=== PATIENT | male | born 1995 | race Caucasian/White ===

== ENCOUNTER 2020-03-15 10:01 | Outpatient (REF) | payer BC, SELFPAY | END 2020-03-15 10:02 | disposition home or self-care (01) | LOC: HO.LAB 10:01 | PROVIDERS: Visit Provider Internal Medicine | DX: Z20.828 Contact with and (suspected) exposure to other viral communicable diseases (principal) | CPT/HCPCS: C9803; U0003 ==

== ENCOUNTER 2020-10-15 16:25 | Emergency (ER) | payer MEDICAID, SELFPAY ==
[2020-10-15 18:03] VITALS: BP 147/100; PULSE 97; RESP 16; TEMP 37.1; O2SAT 99; BMI 29.0
--- NOTE | 2020-10-15 18:04 | ED_ITS ---
HPI - General Adult General Chief complaint: Recheck/Abnormal Lab/Rx Stated complaint: high bp, rash Time Seen by Provider: 10/15/20 18:04 Source: patient Mode of arrival: ambulatory Limitations: no limitations History of Present Illness HPI narrative: 25 yo male with no medical history presents to the ER with high blood pressure reading x3 at home. BP 150/90s per his report. He also reports ongoing anxiety, migraine headaches, and chest pains for the last few months. He does not have health insurance or a PCP. He was monitoring his pressure on a cuff at home and states it has been high in the past but he has never been on medication. Hypertension runs in his family. 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 MD complaint: HTN Onset (ago): day(s) Location: head and chest Radiation: non-radiation Severity: mild Quality: aching Pain Consistency: intermittent Relieving factors: rest Associated symptoms: denies other symptoms Treatments prior to arrival: none Related Data Previous Rx's Medication Instructions Recorded hydrochlorothiazide 12.5 mg PO DAILY #14 tab 10/15/20 hydrocortisone 1 appl TOPICAL TID PRN #30 g 10/15/20 Allergies Allergy/AdvReac Type Severity Reaction Status Date / Time No Known Allergies Allergy Verified 10/15/20 18:08 Review of Systems Review of Systems: Constitutional: No Fever, No Chills ENT/Mouth: No sore throat, No Rhinorrhea, No Swallowing Difficulty Eyes: No Eye Pain, No Swelling, No Redness, No vision changes Cardiovascular: + Chest Pain, No SOB Respiratory: No Cough, No Sputum, No Wheezing, No dyspnea Gastrointestinal: No Nausea, No Vomiting, No Diarrhea, No abdominal Pain Musculoskeletal: No joint pain, No Myalgias Skin: No Skin Lesions, + rash Neuro: No Weakness, No Numbness, No Dizziness, + Headache Psych: + Anxiety/Panic, No Depression Heme/Lymph: No Bruising, No Lymphadenopathy PMFSH Past Medical History Attestation statement: The following information was validated with the patient. Social History Social History Advance Directives: No Advance Directives Information Provided: No Physical Exam Vital Signs: Vital Signs: Last Vital Signs Temp 98.8 F 10/15/20 18:03 Pulse 97 07/21/21 18:03 Resp 16 10/15/20 18:03 BP 147/100 H 10/15/20 18:03 Pulse Ox 99 10/15/20 18:03 Body Mass Index 29.0 Appearance: Alert. Oriented X3. No acute distress. Eyes: Pupils equal, round and reactive to light. ENT: Pharynx normal. Neck: Normal inspection. Neck supple. CVS: Normal heart rate and rhythm. Pulses normal. Respiratory: No respiratory distress. Breath sounds normal. Abdomen: Soft and nontender. +BS x4 Skin: Skin warm and dry. Normal skin color. Normal skin turgor. small round erythematous patches <1cm on right dorsal forearm and truck, pruritic, blanching, dry, not warm or tender Extremities: No lower extremity edema. Neuro: Oriented X 3. No motor deficit. No sensory deficit. Course Course Course Narrative: 25 y/o male presenting with hypertension, BP 150/90's at home x2 days. Associated with chest pains, anxiety, and headaches. BP here 147/100 with HR 97. He appears well. No current chest pain, headache or vision changes. No evidence of hypertensive urgency or emergency. He has increased stressors at home and work. We discussed important of getting a primary care doctor for management and monitoring of his BP. He agrees to go to hospital lobby now to sign up for [facility]. Given list of PCPs. DASH diet discussed. Will plan to start low dose HCTZ for 2 weeks, monitor BP at home and f/u as an outpatient with his PCP. Steroid cream prescribed for itchy rash, likely due to heat. Stable for discharge home. Case d/w Dr. Link. Discharge Plan Discharge Clinical Impression: Heat rash Hypertension Qualifiers: Hypertension type: unspecified Qualified Code(s): I10 - Essential (primary) hypertension Patient Disposition: Home, Self-Care Instructions: DASH Eating Plan (ED), Hypertension (ED), Dermatitis (ED) Additional Instructions: Your blood pressure was elevated today. Recommend start taking the prescribed medication every morning. Avoid salt and fats in your diet. You need to follow up with a doctor for management of your blood pressure. Recommend recording it once per day and keep records for for your doctor. See list provided. Use the topical steroid cream as needed for itching. Take Benadryl 25-50 mg every 6 hours as needed for itching. Prescriptions: New hydrochlorothiazide 12.5 mg tablet 12.5 mg PO DAILY Qty: 14 RF: 0 hydrocortisone 2.5 % cream 1 appl topical TID PRN (Reason: itching) Qty: 30 RF: 0 Interventions: ED Discharge Assessment Last Done: 10/15/20 19:44 Discharge Date/Time: 10/15/20 19:45
== END 2020-10-15 19:45 | disposition home or self-care (01) ==
PROVIDERS: Emergency Provider Emergency Medicine
DX: I10 Essential (primary) hypertension (principal); L74.0 Miliaria rubra
CPT/HCPCS: 99283

== ENCOUNTER 2020-10-16 18:57 | Emergency (ER) | payer MEDICAID, SELFPAY ==
--- NOTE | 2020-10-16 | ECG_ITS ---
Test Reason : DIZZINESS Blood Pressure : / mmHG Vent. Rate : 081 BPM Atrial Rate : 081 BPM P-R Int : 142 ms QRS Dur : 082 ms QT Int : 356 ms P-R-T Axes : 047 070 021 degrees QTc Int : 413 ms Normal sinus rhythm with sinus arrhythmia Normal ECG When compared to the previous EKG of No significant changes seen Referred By: Generic ED Physician Electronically Signed By:JANINA EMERSON MD
[2020-10-16 19:06] VITALS: BP 167/89; PULSE 98; RESP 18; TEMP 37.1; O2SAT 99; BMI 29.0
[2020-10-16 20:14] LABS: MANUAL DIFF FLAG NO
[2020-10-16 20:16] LABS: Basophils Absolute Auto 0.1 X10*3/uL (0.0-0.2); Eosinophils Absolute Auto 0.2 X10*3/uL (0.0-0.4); Eosinophils Percent Auto 2.3 % (0-4); Hematocrit 47.2 % (42-52); Hemoglobin 16.9 g/dl (14.0-18.0); Imm Gran Abs Auto 0.02 X10*3/uL (0.00-0.03); Imm Gran Pct Auto 0.3 % (0.0-0.4); Lymphocytes Absolute Auto 1.9 X10*3/uL (1.2-4.9); Lymphocytes Percent Auto 24.6 % (20-40); Mean Corpuscular HGB Conc 35.8 g/dl (31.0-36.0); Mean Corpuscular Hemoglobin 30.5 pg (27.0-33.0); Mean Platelet Volume 9.4 fL (9.4-12.4); Monocytes Absolute Auto 0.5 X10*3/uL (0.1-1.2); Monocytes Percent Auto 6.7 % (2-11); Neutrophils Percent Auto 65.1 % (45-73); Platelet Count 340 X10*3/uL (160-400); Red Blood Count 5.55 X10*6/uL (4.60-5.80); Red Cell Distribution Width 11.7 % (11.0-16.0); White Blood Count 7.8 X10*3/uL (4.8-10.8)
[2020-10-16 20:41] LABS: Anion Gap 17 (12-20); Blood Urea Nitrogen 12 mg/dL (9-16); Calcium 10.8 mg/dL (8.4-10.2); Carbon Dioxide 24 mmol/L (22-29); Chloride 101 mmol/L (96-108); Creatinine Clr Calc Pharmacy 107.7; Estimated Glomerular Filt Rate > 60; Glucose Random 94 mg/dL (60-115); Potassium 3.9 mmol/L (3.3-5.1); Sodium 138 mmol/L (135-145)
--- NOTE | 2020-10-16 23:35 | ED.DIZZY ---
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) Onset (ago): day(s) (has had it for the past few days but noted he felt his BP being high today, took HCTZ just started it yesterday kept rechecking BP and it kept going up) Severity: moderate Description: lightheadedness Context: anxiety and recent illness History of similar symptoms: Yes Exacerbating factors: nothing Relieving factors: nothing Associated symptoms: other (anxiety, shakes, chest pain) Related Data Previous Rx's Medication Instructions Recorded hydrochlorothiazide 12.5 mg PO DAILY #14 tab 10/15/20 hydrocortisone 1 appl TOPICAL TID PRN #30 g 10/15/20 lorazepam [Ativan] 1 mg PO BEDTIME PRN #10 tab 10/17/20 Allergies Allergy/AdvReac Type Severity Reaction Status Date / Time No Known Allergies Allergy Verified 10/16/20 19:06 Review of Systems Review of Systems: Constitutional : No Weight loss, No Fever, No Chills, No Fatigue, No Malaise ENT/Mouth : No sore throat, No Rhinorrhea Eyes: No Eye Pain, No Swelling, No Redness Cardiovascular : pos Chest Pain, No SOB, No Dyspnea on Exertion, No Orthopnea, No Edema, No Palpitations Respiratory : No Cough, No Sputum, No Wheezing Gastrointestinal : No Nausea, No Vomiting, No Diarrhea, No Constipation, No abdominal Pain, No Hematochezia, No Melena Genitourinary : No Dysuria, No Urinary Frequency, No Hematuria, Musculoskeletal : No joint pain, No Myalgias, No Joint Swelling Skin : No Skin Lesions, No rash Neuro : No Weakness, No Numbness, pos Dizziness, No Headache Psych : pos Anxiety/Panic, No Depression Heme/Lymph: No Bruising, No Bleeding,No Lymphadenopathy Endocrine : No Polyuria, No Polydipsia All other systems reviewed and are negative [facility] Past Medical History Attestation statement: The following information was validated with the patient. Medical History Anxiety Asthma Hypertension Migraine Social History Social History (Updated 10/17/20 @ 00:10 by Lana Cabrera DO) Patient Tobacco Use Status: Never used Tobacco Use of substances other than those prescribed or required for medical reasons: No Advance Directives: No Advance Directives Information Provided: No Physical Exam Vital Signs: Vital Signs: Last Vital Signs Temp 98.8 F 10/16/20 19:06 Pulse 98 10/16/20 19:06 Resp 18 10/16/20 19:06 BP 167/89 H 10/16/20 19:06 Pulse Ox 99 10/16/20 19:06 Body Mass Index 29.0 Appearance: Alert. Oriented X3. No acute distress. Eyes: Pupils equal, round and reactive to light. ENT: Pharynx normal. Neck: Normal inspection. Neck supple. CVS: Normal heart rate and rhythm. Pulses normal. Respiratory: No respiratory distress. Breath sounds normal. Abdomen: Soft and nontender. Skin: Skin warm and dry. Normal skin color. Normal skin turgor. Extremities: No lower extremity edema. No calf ttp Neuro: Oriented X 3. No motor deficit. No sensory deficit. Course Course Course Narrative: negative trop, BP improved with ativan - stable for DC will refer to therapy MDM - Dizziness MDM Narrative Medical decision making narrative: 25 yo male with hx of HTN just dx here with feeling like his pressure is still high just started on meds x 2 days, c/o 8pm tonight feeling dizzy anxious chest tightness at this time PERC negative, atypical for ACS but will obtain trop at almost 4.5 hour rosario - PO ativan for anxiety and reassess dispo per results and findings Lab Data Result diagrams: 10/16/20 20:07 10/16/20 20:07 Labs: Lab Results 10/16/20 10/16/20 10/17/20 Range/Units 20:07 20:07 00:13 WBC 7.8 (4.8-10.8) X10*3/uL RBC 5.55 (4.60-5.80) X10*6/uL Hgb 16.9 (14.0-18.0) g/dl Hct 47.2 (42-52) % MCV 85.0 (80-98) fL MCH 30.5 (27.0-33.0) pg MCHC 35.8 (31.0-36.0) g/dl RDW 11.7 (11.0-16.0) % Plt Count 340 (160-400) X10*3/uL MPV 9.4 (9.4-12.4) fL Immature Gran % (Auto) 0.3 (0.0-0.4) % Neut % (Auto) 65.1 (45-73) % Lymph % (Auto) 24.6 (20-40) % Hitchcock % (Auto) 6.7 (2-11) % Eos % (Auto) 2.3 (0-4) % Baso % (Auto) 1.0 (0-2) % Lymph # (Auto) 1.9 (1.2-4.9) X10*3/uL Hitchcock # (Auto) 0.5 (0.1-1.2) X10*3/uL Eos # (Auto) 0.2 (0.0-0.4) X10*3/uL Baso # (Auto) 0.1 (0.0-0.2) X10*3/uL Abs Immat Gran (auto) 0.02 (0.00-0.03) X10*3/uL Absolute Neuts (auto) 5.0 (2.0-8.3) X10*3/uL Absolute Nucleated RBC 0.000 (0.0-0.012) X10*3/uL Nucleated RBC % (auto) 0.0 (0.0-0.2) /100WBC Sodium 138 (135-145) mmol/L Potassium 3.9 (3.3-5.1) mmol/L Chloride 101 (96-108) mmol/L Carbon Dioxide 24 (22-29) mmol/L Anion Gap 17 (12-20) BUN 12 (9-16) mg/dL Creatinine 1.07 (0.5-1.4) mg/dL Estim Creat Clear Calc 107.7 Estimated GFR > 60 Random Glucose 94 (60-115) mg/dL Calcium 10.8 H (8.4-10.2) mg/dL Troponin I High Sens < 3.5 (<3.5-35.0) ng/L ECG Data Attestation: I personally reviewed and interpreted this ECG as follows: ECG interpretation date: 10/16/20 ECG interpretation time: 23:36 Interpretation: Rate: 81 Rhythm: NSR [place]: normal Normal P waves. Normal SKY. Normal QRS complex. ST T wave : no VICTOR HUGO, nonspecific, artifact noted qTC: normal prior studies: no acute ischemia The study has been interpreted contemporaneously by me. EKG #2 Rate: 87 Rhythm: NSR [place]: normal Normal P waves. Normal SKY. Normal QRS complex. ST T wave : nonspecific inf leads no VICTOR HUGO, inverted T wave in V3 qTC: normal prior studies: no acute ischemia The study has been interpreted contemporaneously by me. . Discharge Plan Discharge Clinical Impression: Anxiety HTN (hypertension) Qualifiers: Hypertension type: unspecified Qualified Code(s): I10 - Essential (primary) hypertension Patient Disposition: Home, Self-Care Instructions: Chronic Hypertension (ED), Anxiety (ED) Additional Instructions: return to ED for any worsening symptoms or concerns Prescriptions: New lorazepam [Ativan] 1 mg tablet 1 mg PO BEDTIME PRN (Reason: anxiety) Qty: 10 RF: 0 No Action hydrochlorothiazide 12.5 mg tablet 12.5 mg PO DAILY Qty: 14 RF: 0 hydrocortisone 2.5 % cream 1 appl topical TID PRN (Reason: itching) Qty: 30 RF: 0 Stand Alone Forms: Work/School Release
--- NOTE | 2020-10-16 23:53 | ECG_ITS ---
Test Reason : HYPERTENSION Blood Pressure : / mmHG Vent. Rate : 087 BPM Atrial Rate : 087 BPM P-R Int : 156 ms QRS Dur : 082 ms QT Int : 356 ms P-R-T Axes : 044 070 018 degrees QTc Int : 428 ms Normal sinus rhythm with sinus arrhythmia Nonspecific ST abnormality When compared with ECG of 16-OCT-2020 20:03, No significant change was found Referred By: Lana Cabrera Electronically Signed By:JANINA EMERSON MD
[2020-10-16] MEDS: LORazepam 1 MG TABLET PO (23:57)
--- NOTE | 2020-10-16 23:59 | PC.NURSE ---
Pt medicated per MAY. imaging technician at bedside for repeat EKG.
[2020-10-17 00:48] LABS: Troponin-I High Sensitivity < 3.5 ng/L (<3.5-35.0)
[2020-10-17 01:04] VITALS: BP 142/95
[2020-10-17 01:14] VITALS: BP 142/95; PULSE 70; RESP 16; O2SAT 98
== END 2020-10-17 01:31 | disposition home or self-care (01) ==
PROVIDERS: Emergency Provider Emergency Medicine
DX: I10 Essential (primary) hypertension (principal); F41.9 Anxiety disorder, unspecified
CPT/HCPCS: 36415; 80048; 84484; 85025; 93005; 99284

== ENCOUNTER 2020-10-29 16:54 | Emergency (ER) | payer MEDICAID, SELFPAY ==
--- NOTE | ~2020-10-29 | XR_ITS ---
EXAMINATION: XR CHEST CLINICAL INFORMATION: Resolved chest pain COMPARISON: 07/22/2017 TECHNIQUE: Frontal view of the chest was obtained. FINDINGS: No significant abnormality is noted involving the heart, lungs, mediastinum, bony thorax or soft tissues. XR/XR chest 1V IMPRESSION: Unremarkable examination.
[2020-10-29 17:01] VITALS: BP 159/90; PULSE 100; O2SAT 100
--- NOTE | 2020-10-29 17:02 | ECG_ITS ---
Test Reason : HYPERTENSION Blood Pressure : / mmHG Vent. Rate : 086 BPM Atrial Rate : 086 BPM P-R Int : 176 ms QRS Dur : 086 ms QT Int : 336 ms P-R-T Axes : 060 077 037 degrees QTc Int : 402 ms Normal sinus rhythm Nonspecific T wave abnormality Abnormal ECG When compared with ECG of 16-OCT-2020 23:59, No significant change was found Referred By: Petey Gu Electronically Signed By:Fercho Torres
[2020-10-29 17:03] VITALS: BMI 27.3
--- NOTE | 2020-10-29 17:09 | ED_ITS ---
HPI - General Adult General Chief complaint: General Medical Stated complaint: htn Time Seen by Provider: 10/29/20 18:30 Source: patient Mode of arrival: ambulatory Limitations: no limitations History of Present Illness HPI narrative: Patient presents to ED for patient blood pressure elevated ( 150's systolici) tingling in feet, patients, nausea, vomitting, anxiety and sensation of doom in chest ( chest pain). Patient states 2 weeks ago he was seen in the ER for anxiety and blood pressure and was placed on blood pressure medications. Patient states strong family history of anxiety with blood pressure. States usually his parents have anxiety and the blood pressure usually elevated so they are on medication for anxiety and blood pressure. Patient states older brother also have similar symptoms nxiety and causing HTN. Presently patient denies any chest pain. Patient states presently only tingling in fingers. Patient denies any slurred speech, facial droop, paralysis of extremities, or loss of vision. Patient states presently feeling anxious. Patient states his high blood pressure and anxiety medications are finished. He ran out of them. Related Data Previous Rx's Medication Instructions Recorded hydrochlorothiazide 12.5 mg tablet 12.5 mg PO DAILY #14 tab 10/15/20 hydrocortisone 2.5 % topical cream 1 appl TOPICAL TID PRN #30 g 10/15/20 lorazepam 1 mg tablet (Ativan) 1 mg PO BEDTIME PRN #10 tab 10/17/20 hydrochlorothiazide 12.5 mg capsule 12.5 mg PO DAILY #20 cap 10/29/20 hydroxyzine HCl 25 mg tablet 25 mg PO QID PRN #28 tab 10/29/20 Allergies Allergy/AdvReac Type Severity Reaction Status Date / Time No Known Allergies Allergy Verified 10/16/20 19:06 Review of Systems Review of Systems: Yes all other systems are reviewed and are negative Constitutional: Constitutional: Reports as per HPI and Reports no additional constitutional complaints Eyes: Eyes: Reports as per HPI and Reports no additional eye complaints ENT: Reports system reviewed and no additional complaints, except as documented and Reports as per HPI Cardiovascular: Cardiovascular: Reports as per HPI and Reports no additional cardiovascular complaints Comments: Sensation of doom Respiratory: Respiratory: Reports as per HPI and Reports no additional respiratory complaints Gastrointestinal: Gastrointestinal: Reports as per HPI and Reports no additional gastrointestinal complaints Musculoskeletal: Musculoskeletal: Reports no additional musculoskeletal complaints and Reports as per HPI Comments: tintling in hands Neurologic: Reports system reviewed and no additional complaints, except as documented and Reports as per HPI Psychiatric: Psychiatric: Reports no additional psychiatric complaints and Reports as per HPI Comments: anxious [facility] Past Medical History Medical History Anxiety Asthma Hypertension Migraine Social History Social History (Updated 10/17/20 @ 00:10 by Lana Cabrera DO) Patient Tobacco Use Status: Never used Tobacco Advance Directives: No Advance Directives Information Provided: Yes Physical Exam Vital Signs: Vital Signs: Last Vital Signs Pulse 98 10/29/20 17:22 Resp 16 10/29/20 17:22 BP 150/91 H 10/29/20 17:22 Pulse Ox 99 10/29/20 17:22 Body Mass Index 27.3 Const: General: cooperative, healthy appearing, comfortable, no acute distres s, well developed, alert, awake and Physically active HENMT: Head: Yes normal to inspection, Yes No palpable skull fracture present, Yes normocephalic and Yes atraumatic Ears: hearing grossly normal bilaterally and external ears normal Eyes: General: appearance normal, both eyes and all related structures Neck: Neck: Yes normal visual inspection, Yes full ROM, Yes no lymphadenopathy, Yes no meningeal signs, Yes trachea midline, Yes supple and No tender Chest: Chest palpation & inspection: normal inspection of the chest and normal palpation of entire chest wall Resp: Effort & Inspection: normal respiratory effort and able to speak in complete sentences Cardio: Jugular venous distension: no JVD Heart sounds: S1 normal heart sound present and S2 normal heart sound present GI: Inspection: Yes normal to inspection and No abdominal wall ecchymosis Palpation (GI): Soft to palpation, not firm, nontender, no guarding and not rigid : General: No CVA tenderness and Yes no CVA tenderness Back/Spine/Pelvis: Back: no CVA tenderness, No CVA tenderness and No back tenderness Skin: General skin exam: no rashes or lesions noted and elasticity normal Neuro: Other: Negative for facial droop. Negative slurred speech. All extremities equal strength 5+. [id number] rapid head movement intact. Negative Romberg. General: gait normal, tone normal, no meningeal signs and deep tendon reflexes 2+ bilaterally Cranial nerves: Yes CN's II-XII intact bilaterally Extrem: General: Yes normal to inspection and Yes full ROM Psych: Other: anxious Appearance: grossly normal and well [facility] Course Course Course Narrative: History physical exam indicate anxiety but will do medical evaluation. Reevaluation(s) Reevaluation #1: Patient EKG negative for STEMI. Chest x-ray negative for pneumonia. Troponin and D-dimer negative. TSH is normal. Negative for any neuro deficits. Pressure 150/91. Patient is not in any distress. Patient does not need psych admission. Patient will be given refill of lisinopril and anxiety medication. Symptoms most likely due to anxiety. Not suspecting any stroke. not Suspecting IL or PE. No indication for head CT scan. Patient denies any nausea or vomiting presently. Perc score 0 Time: 20:05 Medical Decision Making MDM Narrative Medical decision making narrative: Anxiety Lab Data Result diagrams: 10/29/20 17:28 10/29/20 17:28 Labs: Lab Results 10/29/20 10/29/20 10/29/20 Range/Units 17:28 17:28 17:28 WBC 7.0 (4.8-10.8) X10*3/uL RBC 5.12 (4.60-5.80) X10*6/uL Hgb 15.4 (14.0-18.0) g/dl Hct 43.9 (42-52) % MCV 85.7 (80-98) fL MCH 30.1 (27.0-33.0) pg MCHC 35.1 (31.0-36.0) g/dl RDW 11.9 (11.0-16.0) % Plt Count 337 (160-400) X10*3/uL MPV 9.6 (9.4-12.4) fL Immature Gran % (Auto) 0.3 (0.0-0.4) % Neut % (Auto) 61.0 (45-73) % Lymph % (Auto) 22.9 (20-40) % Sunflower % (Auto) 11.9 H (2-11) % Eos % (Auto) 2.6 (0-4) % Baso % (Auto) 1.3 (0-2) % Lymph # (Auto) 1.6 (1.2-4.9) X10*3/uL Sunflower # (Auto) 0.8 (0.1-1.2) X10*3/uL Eos # (Auto) 0.2 (0.0-0.4) X10*3/uL Baso # (Auto) 0.1 (0.0-0.2) X10*3/uL Abs Immat Gran (auto) 0.02 (0.00-0.03) X10*3/uL Absolute Neuts (auto) 4.3 (2.0-8.3) X10*3/uL Absolute Nucleated RBC 0.000 (0.0-0.012) X10*3/uL Nucleated RBC % (auto) 0.0 (0.0-0.2) /100WBC PT 11.1 (9.9-13.0) SEC INR 1.0 (0.9-1.1) APTT 32.9 (24.1-38.0) SEC D-Dimer < 200 NG/ML Sodium 143 (135-145) mmol/L Potassium 3.8 (3.3-5.1) mmol/L Chloride 107 (96-108) mmol/L Carbon Dioxide 26 (22-29) mmol/L Anion Gap 14 (12-20) BUN 12 (9-16) mg/dL Creatinine 1.09 (0.5-1.4) mg/dL Estim Creat Clear Calc 101.9 Estimated GFR > 60 Random Glucose 101 (60-115) mg/dL Calcium 10.1 D (8.4-10.2) mg/dL Magnesium (1.6-2.6) mg/dL Total Bilirubin 0.4 (0.0-1.0) mg/dL AST 29 (5-37) U/L ALT 65 H (0-40) U/L Alkaline Phosphatase 65 (39-117) U/L Total Creatine Kinase (38-174) U/L Troponin I High Sens (<3.5-35.0) ng/L B-Natriuretic Peptide (<100) pg/mL Total Protein 7.6 (6.5-8.0) g/dL Albumin 4.8 (3.5-5.0) g/dL 10/29/20 10/29/20 Range/Units 17:28 17:28 WBC (4.8-10.8) X10*3/uL RBC (4.60-5.80) X10*6/uL Hgb (14.0-18.0) g/dl Hct (42-52) % MCV (80-98) fL MCH (27.0-33.0) pg MCHC (31.0-36.0) g/dl RDW (11.0-16.0) % Plt Count (160-400) X10*3/uL MPV (9.4-12.4) fL Immature Gran % (Auto) (0.0-0.4) % Neut % (Auto) (45-73) % Lymph % (Auto) (20-40) % Sunflower % (Auto) (2-11) % Eos % (Auto) (0-4) % Baso % (Auto) (0-2) % Lymph # (Auto) (1.2-4.9) X10*3/uL Sunflower # (Auto) (0.1-1.2) X10*3/uL Eos # (Auto) (0.0-0.4) X10*3/uL Baso # (Auto) (0.0-0.2) X10*3/uL Abs Immat Gran (auto) (0.00-0.03) X10*3/uL Absolute Neuts (auto) (2.0-8.3) X10*3/uL Absolute Nucleated RBC (0.0-0.012) X10*3/uL Nucleated RBC % (auto) (0.0-0.2) /100WBC PT (9.9-13.0) SEC INR (0.9-1.1) APTT (24.1-38.0) SEC D-Dimer NG/ML Sodium (135-145) mmol/L Potassium (3.3-5.1) mmol/L Chloride (96-108) mmol/L Carbon Dioxide (22-29) mmol/L Anion Gap (12-20) BUN (9-16) mg/dL Creatinine (0.5-1.4) mg/dL Estim Creat Clear Calc Estimated GFR Random Glucose (60-115) mg/dL Calcium (8.4-10.2) mg/dL Magnesium 2.1 (1.6-2.6) mg/dL Total Bilirubin (0.0-1.0) mg/dL AST (5-37) U/L ALT (0-40) U/L Alkaline Phosphatase (39-117) U/L Total Creatine Kinase 163 (38-174) U/L Troponin I High Sens < 3.5 (<3.5-35.0) ng/L B-Natriuretic Peptide < 10 (<100) pg/mL Total Protein (6.5-8.0) g/dL Albumin (3.5-5.0) g/dL ECG Data Interpretation: Normal sinus rhythm. Ventricular rate 86. Pr interval 176. QRS 86. QTC 4 2. Negative STEMI Discharge Plan Discharge Clinical Impression: Anxiety, Hypertension Patient Disposition: Home, Self-Care Instructions: Hypertension (ED), Anxiety (ED) Additional Instructions: Your EKG and troponin came back negative for heart attack. Lower came back negative for risk of blood clot. Her thyroid levels are normal. Chest x-ray negative for pneumonia. Electrolytes, kidney function, liver enzymes were normal. UA abnormal blood cell count. Return to the ED immediately for slurred speech, loss of vision, paralysis of extremities, chest pain, shortness of breath, swelling of lower extremities, calf pain, or any other concerning sy mptoms. Please follow up with PCP Prescriptions: New hydrochlorothiazide 12.5 mg capsule 12.5 mg PO DAILY Qty: 20 RF: 0 hydroxyzine HCl 25 mg tablet 25 mg PO QID PRN (Reason: anxiety) Qty: 28 RF: 0 No Action hydrochlorothiazide 12.5 mg tablet 12.5 mg PO DAILY Qty: 14 RF: 0 hydrocortisone 2.5 % cream 1 appl topical TID PRN (Reason: itching) Qty: 30 RF: 0 lorazepam [Ativan] 1 mg tablet 1 mg PO BEDTIME PRN (Reason: anxiety) Qty: 10 RF: 0 Stand Alone Forms: Work/School Release Interventions: ED Discharge Assessment Last Done: 10/29/20 20:29 Discharge Date/Time: 10/29/20 20:29 Print Language: Vietnamese
[2020-10-29 17:22] VITALS: BP 150/91; PULSE 98; RESP 16; O2SAT 99
[2020-10-29 17:35] LABS: MANUAL DIFF FLAG NO
[2020-10-29 17:38] LABS: Basophils Absolute Auto 0.1 X10*3/uL (0.0-0.2); Basophils Percent Auto 1.3 % (0-2); Eosinophils Absolute Auto 0.2 X10*3/uL (0.0-0.4); Eosinophils Percent Auto 2.6 % (0-4); Hematocrit 43.9 % (42-52); Hemoglobin 15.4 g/dl (14.0-18.0); Imm Gran Abs Auto 0.02 X10*3/uL (0.00-0.03); Imm Gran Pct Auto 0.3 % (0.0-0.4); Lymphocytes Absolute Auto 1.6 X10*3/uL (1.2-4.9); Lymphocytes Percent Auto 22.9 % (20-40); Mean Corpuscular HGB Conc 35.1 g/dl (31.0-36.0); Mean Corpuscular Hemoglobin 30.1 pg (27.0-33.0); Mean Corpuscular Volume 85.7 fL (80-98); Mean Platelet Volume 9.6 fL (9.4-12.4); Monocytes Absolute Auto 0.8 X10*3/uL (0.1-1.2); Monocytes Percent Auto 11.9 % (2-11); Neutrophils Absolute Auto 4.3 X10*3/uL (2.0-8.3); Platelet Count 337 X10*3/uL (160-400); Red Blood Count 5.12 X10*6/uL (4.60-5.80); Red Cell Distribution Width 11.9 % (11.0-16.0)
[2020-10-29 17:43] LABS: Prothrombin Time 11.1 SEC (9.9-13.0)
[2020-10-29 17:46] LABS: Partial Thromboplastin Time 32.9 SEC (24.1-38.0)
[2020-10-29 17:59] LABS: D Dimer < 200 NG/ML
[2020-10-29 18:06] LABS: Magnesium 2.1 mg/dL (1.6-2.6)
[2020-10-29 18:07] LABS: Alanine Aminotransferase 65 U/L (0-40); Albumin Level 4.8 g/dL (3.5-5.0); Alkaline Phosphatase 65 U/L (39-117); Anion Gap 14 (12-20); Aspartate Amino Transferase 29 U/L (5-37); Bilirubin Total 0.4 mg/dL (0.0-1.0); Blood Urea Nitrogen 12 mg/dL (9-16); Calcium 10.1 mg/dL (8.4-10.2); Carbon Dioxide 26 mmol/L (22-29); Chloride 107 mmol/L (96-108); Creatinine Clr Calc Pharmacy 101.9; Estimated Glomerular Filt Rate > 60; Glucose Random 101 mg/dL (60-115); Potassium 3.8 mmol/L (3.3-5.1); Sodium 143 mmol/L (135-145); Total Protein 7.6 g/dL (6.5-8.0)
[2020-10-29 18:12] LABS: B Type Natriuretic Peptide < 10 pg/mL (<100); Troponin-I High Sensitivity < 3.5 ng/L (<3.5-35.0)
== END 2020-10-29 20:29 | disposition home or self-care (01) ==
PROVIDERS: Physician Assistant; Emergency Provider Emergency Medicine Emergency Medical Services
DX: F41.9 Anxiety disorder, unspecified (principal); I10 Essential (primary) hypertension
CPT/HCPCS: 36415; 71045; 80053; 82550; 83735; 83880; 84484; 85025; 85379; 85610; 85730; 93005; 99284

== ENCOUNTER 2021-06-27 06:13 | Emergency (ER) | payer MEDICAID, SELFPAY ==
[2021-06-27 06:42] VITALS: BP 177/96; PULSE 100; RESP 18; TEMP 36.9; O2SAT 98; BMI 29.5
--- NOTE | 2021-06-27 08:25 | ED_ITS ---
HPI - General Adult General Chief complaint: General Medical Stated complaint: FLU SYMPTONS Time Seen by Provider: 06/27/21 08:23 Source: patient Mode of arrival: ambulatory Limitations: no limitations History of Present Illness MD complaint: flu like symptoms Onset (ago): day(s) (2) Location: head and mouth Severity: mild Quality: aching Pain Consistency: constant Relieving factors: none Exacerbating factors: none Associated symptoms: fever/chills, headaches and malaise Treatments prior to arrival: none Related Data Previous Rx's Medication Instructions Recorded hydrochlorothiazide 12.5 mg tablet 12.5 mg PO DAILY #14 tab 10/15/20 hydrocortisone 2.5 % topical cream 1 appl TOPICAL TID PRN #30 g 10/15/20 lorazepam 1 mg tablet (Ativan) 1 mg PO BEDTIME PRN #10 tab 10/17/20 hydrochlorothiazide 12.5 mg capsule 12.5 mg PO DAILY #20 cap 10/29/20 hydroxyzine HCl 25 mg tablet 25 mg PO QID PRN #28 tab 10/29/20 Allergies Allergy/AdvReac Type Severity Reaction Status Date / Time No Known Allergies Allergy Verified 10/16/20 19:06 Review of Systems Review of Systems: Constitutional : positive Fever, no Chills, no fatigue, positive Malaise ENT/Mouth : positive sore throat, no runny nose Eyes: No Discharge Cardiovascular : No Chest Pain, No SOB Respiratory : No Cough, No Sputum Gastrointestinal : No Nausea, No Vomiting, No Diarrhea Genitourinary : No Dysuria, No Urinary Frequency Musculoskeletal : positive Myalgia Skin : No rash Neuro : No Headache PMFSH Past Medical History Medical History Anxiety Asthma Hypertension Migraine Social History Social History Patient Tobacco Use Status: Never used Tobacco Advance Directives: No Advance Directives Information Provided: No Physical Exam ED Vital Signs: Vital Signs - 24 hr 06/27/21 06:42 Temperature 98.4 F Pulse Rate 100 Respiratory Rate 18 Blood Pressure 177/96 H Pulse Oximetry 98 BMI result Body Mass Index 29.5 Appearance: Alert. Oriented X3. No acute distress. Eyes: Pupils equal, round and reactive to light. ENT: Pharynx mild erythema no swelling no exudates Neck: Normal inspection. Neck supple. CVS: Normal heart rate and rhythm. Pulses normal. Respiratory: No respiratory distress. Breath sounds normal. Abdomen: Soft and nontender. Skin: Skin warm and dry. Normal skin color. Normal skin turgor. Extremities: No lower extremity edema. No calf ttp Neuro: Oriented X 3. No motor deficit. No sensory deficit. Course Course Course Narrative: negative swabs stable for DC Medical Decision Making [facility] Narrative Medical decision making narrative: 25 yo male with hx of asthma, vaccinated against COVID comes in with 2 days of headaches, feels feverish, chills, sore throat - not toxic, no signs of exudates, mild erythema in throat, clear lungs - BP slightly high not taking his BP medications - will obtain COVID/flu swab. Lab Data Labs: Lab Results 06/27/21 06/27/21 Range/Units 08:31 08:31 COVID-19 (MAU) Negative (Negative) COVID-19 Clin Com See Note Influenza Type A (TL) Negative (Negative) Influenza Type B (TL) Negative (Negative) Influenza A & B Note See Note Discharge Plan Discharge Clinical Impression: Acute viral syndrome Patient Disposition: Home, Self-Care Instructions: Viral Syndrome (ED) Additional Instructions: return to ED for any worsening symptoms or concerns negative COVID and flu Prescriptions: No Action hydrochlorothiazide 12.5 mg tablet 12.5 mg PO DAILY Qty: 14 0RF hydrocortisone 2.5 % cream 1 appl topical TID PRN (Reason: itching) Qty: 30 0RF hydrochlorothiazide 12.5 mg capsule 12.5 mg PO DAILY Qty: 20 0RF hydroxyzine HCl 25 mg tablet 25 mg PO QID PRN (Reason: anxiety) Qty: 28 0RF lorazepam [Ativan] 1 mg tablet 1 mg PO BEDTIME PRN (Reason: anxiety) Qty: 10 0RF Stand Alone Forms: Work/School Release
[2021-06-27 08:50] LABS: COVID-19 Test Negative (Negative); IDNOW Serial# 16C4AD1C; Influenza A Negative (Negative); Influenza B2 Negative (Negative)
== END 2021-06-27 09:05 | disposition home or self-care (01) ==
PROVIDERS: Emergency Provider Emergency Medicine
DX: B34.9 Viral infection, unspecified (principal); Z20.822 Contact with and (suspected) exposure to COVID-19; I10 Essential (primary) hypertension
CPT/HCPCS: 87502; 87635; 99283

== ENCOUNTER 2021-12-14 18:36 | Emergency (ER) | payer MEDICAID, SELFPAY ==
[2021-12-14 18:41] VITALS: BP 151/91; PULSE 110; RESP 18; TEMP 35.9; O2SAT 98; BMI 29.8
[2021-12-14 21:42] VITALS: BP 141/88; PULSE 95; RESP 18; TEMP 36.4; O2SAT 97
[2021-12-14 23:49] VITALS: BP 165/94; PULSE 89; RESP 18; TEMP 36.7; O2SAT 98
--- NOTE | 2021-12-15 01:37 | ED_ITS ---
HPI - Wound/Laceration General Chief Complaint: Wound/Laceration Stated Complaint: lac on R leg/COVID+ Time Seen by Provider: 12/15/21 02:18 Source: patient Mode of arrival: ambulatory Limitations: no limitations History of Present Illness HPI narrative: 26-year-old male, COVID positive, presents with laceration to the back of his left calf. States that he was changing his dryer vent, and cut back of his calf piece of is unknown when his last Tdap vaccine was updated. He does not report any other physical complaints at this time Onset (ago): hour(s) (Within the hour of arrival) Extremity Location: left: lower leg Body four view annotation: 1. Laceration Place: home Patient tetanus UTD: No Context: accidental Associated symptoms: pain Treatments prior to arrival: bandage Related Data Previous Rx's Medication Instructions Recorded hydrochlorothiazide 12.5 mg tablet 12.5 mg PO DAILY #14 tabs 10/15/20 hydrocortisone 2.5 % topical cream 1 appl topical TID PRN itching #30 10/15/20 grams lorazepam 1 mg tablet (Ativan) 1 mg PO BEDTIME PRN anxiety #10 10/17/20 tabs hydrochlorothiazide 12.5 mg capsule 12.5 mg PO DAILY #20 caps 10/29/20 hydroxyzine HCl 25 mg tablet 25 mg PO QID PRN anxiety #28 tabs 10/29/20 Allergies Allergy/AdvReac Type Severity Reaction Status Date / Time No Known Allergies Allergy Verified 10/16/20 19:06 Review of Systems Review of Systems: Constitutional: No Fever, No Chills ENT/Mouth: No Ear Pain, No Hoarseness, No sore throat Eyes: No Eye Pain, No Swelling, No Redness, No Foreign Body Cardiovascular: No Chest Pain, No SOB Respiratory: No Cough, No Dyspnea Gastrointestinal: No Nausea, No Vomiting, No Diarrhea, No abdominal Pain Genitourinary: No Dysuria, No Hematuria Musculoskeletal: No joint pain, No Myalgias, No Joint Swelling Skin: Positive lacerations to left calf, No rash Neuro: No Weakness, No Numbness, No Paresthesias, No Loss of Consciousness, No Dizziness, No Headache Psych: No Anxiety/Panic, No Depression Heme/Lymph: no easy bruising, no Lymphadenopathy Endocrine: No Polyuria, No Polydipsia Yes all other systems are reviewed and are negative PMFSH Past Medical History Attestation statement: The following information was validated with the patient. Source: old records reviewed Medical History Anxiety Asthma Hypertension Migraine Social History Social History Patient Tobacco Use Status: Never used Tobacco Advance Directives: No Advance Directives Information Provided: Yes Physical Exam Vital Signs: Vital Signs: Last Vital Signs Temp 98.1 F 12/14/21 23:49 Pulse 89 12/14/21 23:49 Resp 18 12/14/21 23:49 BP 165/94 H 12/14/21 23:49 Pulse Ox 98 12/14/21 23:49 O2 Del Method 12/14/21 23:49 BMI result Body Mass Index 29.8 Appearance: Alert. Oriented X3. No acute distress. Eyes: Pupils equal, round and reactive to light. ENT: Pharynx normal. Neck: Normal inspection. Neck supple. CVS: Normal heart rate and rhythm. Pulses normal. Respiratory: No respiratory distress. Breath sounds normal. Abdomen: Soft and nontender. Skin: 4 cm laceration to back of calf, Skin warm and dry. Normal skin color. Normal skin turgor. Extremities: No lower extremity edema. Gait well-balanced well coordinated. Neuro: No motor deficit. No sensory deficit. Cranial nerves 2 through Course Course Course Narrative: 26-year-old male presents with laceration to the back of his left calf. Unknown when his last vaccine was updated. Will update Tdap vaccine today. Laceration is approximately 4 cm in length, superficial, has full range of motion with strength 5/5 to all extremities. Plan of care is to suture laceration and discharged home. 02:14 prepped and draped in sterile fashion. Irrigated with copious amounts of normal saline. Betadine cleanse. 10 sutures placed. Please refer to procedure note for full details. Patient tolerated procedure well. Patient verbalized understanding of and agrees to plan of care discharge home. Verbalized understanding of signs and symptoms indicating need for emergent intervention. MDM - Wound/Laceration Differential Diagnosis Differential diagnosis: Likely laceration Medical Records Attestation: I reviewed the patient's medical records. Procedures Laceration Laceration 1: Site: lower extremity Side (If applicable): left Size (cm): 4 Description: linear Depth: simple, single layer Local Anesthetic: lidocaine 1% Amount of anesthesia used (mL): 5 Pre-repair: wound explored, irrigated extensively and deep structures intact Skin layer closed with: nylon Size (cm): 4-0 Number of sutures: 10 Technique: simple, interrupted Discharge Plan Discharge Clinical Impression: Laceration Patient Disposition: Home, Self-Care Instructions: Care For Your Stitches (ED), Laceration (ED) Additional Instructions: You were evaluated for laceration to the back of your left calf. We placed 10 sutures. Please return in 7-10 days to have sutures removed. Follow suture care instructions. If you notice any signs or symptoms indicating infection p lease return sooner. We updated your Tdap vaccine today. Thank you for choosing this emergency department for evaluation. Please follow-up with primary care physician as needed. Return to the emergency department for any new, concerning, or worsening symptoms. Prescriptions: No Action hydrochlorothiazide 12.5 mg tablet 12.5 mg PO DAILY Qty: 14 0RF hydrocortisone 2.5 % cream 1 appl topical TID PRN (Reason: itching) Qty: 30 0RF hydrochlorothiazide 12.5 mg capsule 12.5 mg PO DAILY Qty: 20 0RF hydroxyzine HCl 25 mg tablet 25 mg PO QID PRN (Reason: anxiety) Qty: 28 0RF lorazepam [Ativan] 1 mg tablet 1 mg PO BEDTIME PRN (Reason: anxiety) Qty: 10 0RF Stand Alone Forms: Work/School Release Interventions: ED Discharge Assessment Last Done: 12/15/21 02:34 Discharge Date/Time: 12/15/21 02:36
[2021-12-15] MEDS: Diphth,Pertus(ACell),Tet Adult 0.5 ML SYRINGE IM (02:13)
--- NOTE | 2021-12-15 02:18 | PC.NURSE ---
Pt. has a laceration on his right lower leg about 1 1/2 inch in length. Assisted provider with laceration repair. Pt. tolerated procedure well. Tetanus shot administered.
== END 2021-12-15 02:36 | disposition home or self-care (01) ==
PROVIDERS: Emergency Provider Emergency Medicine
DX: S81.812A Laceration without foreign body, left lower leg, initial encounter (principal); S80.812A Abrasion, left lower leg, initial encounter; Y28.9XXA Contact with unspecified sharp object, undetermined intent, initial encounter; Y93.9 Activity, unspecified; Y92.009 Unspecified place in unspecified non-institutional (private) residence as the place of occurrence of the external cause; Y99.9 Unspecified external cause status; Z79.899 Other long term (current) drug therapy
CPT/HCPCS: 12002; 90471; 90715; 99282; 99284

== ENCOUNTER 2022-02-21 06:40 | Emergency (ER) | payer MEDICAID, SELFPAY ==
[2022-02-21 06:57] VITALS: BP 150/95; PULSE 77; RESP 16; TEMP 36.4; O2SAT 99; BMI 29.0
--- NOTE | 2022-02-21 07:51 | ED.GENADULT ---
HPI - General Adult General Chief complaint: General Medical Stated complaint: allergic reaction skin rash and itchness Time Seen by Provider: 02/21/22 07:23 Source: patient Mode of arrival: ambulatory Limitations: no limitations History of Present Illness HPI narrative: 26-year-old male came in for evaluation of hives. For the last 3-4 days patient been getting hives on and off, patient declined any change in his lifestyle, no new medication, no change of his detergent, no difficulty breathing, no difficulty swallowing, no change of voice. Taking hydrochlorothiazide for hypertension for many years with no problem. Related Data Previous Rx's Medication Instructions Recorded hydrochlorothiazide 12.5 mg tablet 12.5 mg PO DAILY #14 tabs 10/15/20 hydrocortisone 2.5 % topical cream 1 appl topical TID PRN itching #30 10/15/20 grams lorazepam 1 mg tablet (Ativan) 1 mg PO BEDTIME PRN anxiety #10 10/17/20 tabs hydrochlorothiazide 12.5 mg capsule 12.5 mg PO DAILY #20 caps 10/29/20 hydroxyzine HCl 25 mg tablet 25 mg PO QID PRN anxiety #28 tabs 10/29/20 Allergies Allergy/AdvReac Type Severity Reaction Status Date / Time No Known Allergies Allergy Verified 10/16/20 19:06 Review of Systems Review of Systems: All other systems are reviewed and are negative Constitutional: Reports as per HPI and Reports no additional constitutional complaints Eyes: Reports as per HPI and Reports no additional eye complaints Reports system reviewed and no additional complaints, except as documented Cardiovascular: Reports as per HPI and Reports no additional cardiovascular complaints Respiratory: Reports as per HPI and Reports no additional respiratory complaints Gastrointestinal: Reports as per HPI and Reports no additional gastrointestinal complaints Genitourinary: Reports no additional female genitourinary complaints Musculoskeletal: Reports no additional musculoskeletal complaints Skin/Breast: Reports system reviewed and no additional complaints, except as docu Psychiatric: Reports no additional psychiatric complaints Endocrine: Reports no additional endocrine complaints Hematologic/Lymphatic: Reports no additional hematologic/lymphatic complaints Allergic/Immunologic: Reports no additional allergic/immunologic complaints Reports system reviewed and no additional complaints, except as documented and Reports Abnormal speech present PMFSH Past Medical History Medical History Anxiety Asthma Hypertension Migraine Social History Social History Patient Tobacco Use Status: Never used Tobacco Advance Directives: No Advance Directives Information Provided: Yes Physical Exam ED Vital Signs: Vital Signs - 24 hr 02/21/22 06:57 Temperature 97.6 F Pulse Rate 77 Respiratory Rate 16 Blood Pressure 150/95 H Pulse Oximetry 99 Oxygen Delivery Method Room Air BMI result Body Mass Index 29.0 Vital signs have been reviewed as appeared to be correct. Blood pressure normal. Heart rate normal. Respiration rate normal. Temperature normal. Oxygen saturation normal. Appearance: Alert. Oriented X3. No acute distress. Head: Normal external exam. Normocephalic. Atraumatic. No Chamorro signs noted. No raccoon eyes noted Eyes: PERRLA. EOMI. Conjunctiva and sclera normal. Eyelids normal. ENT: TM's Normal. Pharynx normal. Uvula midline. Moist mucous membranes. No trismus noted. No drooling noted. No muffled voice noted. Neck: Normal inspection. Neck supple. FROM. No adenopathy. Thyroid Normal. No meningeal signs. No neck mass noted. CVS: Normal heart rate and rhythm. Heart sound normal. No murmurs noted. Pulses normal throughout. Respiratory: No respiratory distress. Painless inspiration. Breath sounds normal. No wheezes/rales/rhonchi noted. Chest nontender. No accessory muscle usage noted or decreased air movement noted. Abdomen: Soft and nontender. Bowel sounds normal in all 4 quadrants. No distention noted. No organomegaly noted. No visible injury noted. Back: No CVA tenderness. Full range of motion noted. Skin: Skin warm and dry. Normal skin color. Normal skin turgor. No rashes/lesions/lacerations noted. Extremities: No lower extremity edema. Extremities exhibit normal range of motion. Extremities nontender. Neuro: Oriented X 3. Cranial nerve exam: II-XII are grossly intact No motor deficit. No sensory deficit. Reflexes normal. Course Course Course Narrative: 26-year-old male with intermittent hives no upper respiratory symptoms, no known underlying cause. Patient was instructed to trim his fingernails l and use Benadryl as needed. Discharge Plan Discharge Clinical Impression: Hives Patient Disposition: Home, Self-Care Instructions: Urticaria (ED) Prescriptions: No Action hydrochlorothiazide 12.5 mg tablet 12.5 mg PO DAILY Qty: 14 0RF hydrocortisone 2.5 % cream 1 appl topical TID PRN (Reason: itching) Qty: 30 0RF hydrochlorothiazide 12.5 mg capsule 12.5 mg PO DAILY Qty: 20 0RF hydroxyzine HCl 25 mg tablet 25 mg PO QID PRN (Reason: anxiety) Qty: 28 0RF lorazepam [Ativan] 1 mg tablet 1 mg PO BEDTIME PRN (Reason: anxiety) Qty: 10 0RF Referrals: Physician,Unknown J [Primary Care Provider] - Stand Alone Forms: Work/School Release
--- NOTE | 2022-02-21 08:12 | PC.NURSE ---
patient a/ox4 . went over discharge paperwork as ordered by provider . patient to followup with primary care . patient has no questions at this time .
== END 2022-02-21 08:13 | disposition home or self-care (01) ==
PROVIDERS: Emergency Provider Emergency Medicine
DX: L50.5 Cholinergic urticaria (principal); Z79.899 Other long term (current) drug therapy
CPT/HCPCS: 99284

== ENCOUNTER 2023-05-08 13:33 | Emergency (ER) | payer MEDICAID, SELFPAY ==
--- NOTE | 2023-05-08 | ECG_ITS ---
Test Reason : CP Blood Pressure : / mmHG Vent. Rate : 108 BPM Atrial Rate : 108 BPM P-R Int : 144 ms QRS Dur : 078 ms QT Int : 294 ms P-R-T Axes : 044 053 022 degrees QTc Int : 393 ms Sinus tachycardia Otherwise normal ECG When compared with ECG of 29-OCT-2020 17:14, Nonspecific T wave abnormality no longer evident in Anterior leads Referred By: Generic ED Physician Electronically Signed By:Fercho Torres
--- NOTE | ~2023-05-08 | XR_ITS ---
EXAMINATION: XR CHEST CLINICAL INFORMATION: Chest pain when coughing COMPARISON: Chest radiograph 10/29/2020. TECHNIQUE: Frontal view of the chest was obtained. FINDINGS: Clear lungs. No pleural effusion or pneumothorax. Cardiomediastinal silhouette is unchanged. XR/XR chest 1V IMPRESSION: No acute cardiopulmonary abnormality.
[2023-05-08 14:01] VITALS: BP 152/89; PULSE 108; RESP 18; TEMP 37.7; O2SAT 97; BMI 29.9
--- NOTE | 2023-05-08 14:33 | ED.GENADULT ---
HPI - General Adult General Chief complaint: Upper Respiratory Symptoms Stated complaint: Chest pain/Cough/Fever Time Seen by Provider: 05/08/23 14:34 Source: patient Mode of arrival: ambulatory Limitations: no limitations History of Present Illness HPI narrative: 27 yo male with no significant pmhx presents to the ED c/o of fever, sore throat, productive cough, and headache. Pt reports his symptoms began Tuesday, he took his temperature last night and it was 103 and began taking Motrin and Tylenol without adequate relief of symptoms. He states his children and girlfriend are sick, and his daughter is + for strep throat. He denies nausea, diarrhea, and congestion. Onset (ago): day(s) (2) Location: head Radiation: non-radiation Severity: mild Severity scale (1-10): 3 Quality: constant Pain Consistency: constant Relieving factors: none Exacerbating factors: none Associated symptoms: cough and headaches Treatments prior to arrival: none Related Data Previous Rx's Medication Instructions Recorded hydrochlorothiazide 12.5 mg tablet 12.5 mg PO DAILY #14 tabs 10/15/20 hydrocortisone 2.5 % topical cream 1 appl topical TID PRN itching #30 10/15/20 grams lorazepam 1 mg tablet (Ativan) 1 mg PO BEDTIME PRN anxiety #10 10/17/20 tabs hydrochlorothiazide 12.5 mg capsule 12.5 mg PO DAILY #20 caps 10/29/20 hydroxyzine HCl 25 mg tablet 25 mg PO QID PRN anxiety #28 tabs 10/29/20 oseltamivir 75 mg capsule (Tamiflu) 75 mg PO DAILY 5 days #5 caps 05/08/23 Allergies Allergy/AdvReac Type Severity Reaction Status Date / Time No Known Allergies Allergy Verified 05/08/23 14:01 Review of Systems Constitutional: Constitutional: Reports no additional constitutional complaints, Denies chills, Reports fever(s), Reports headache(s), Denies night sweats and Reports weakness Eyes: Eyes: Reports no additional eye complaints, Denies blurry vision, Denies change in vision, Denies diplopia, Denies eye discharge, Denies loss of vision and Denies eye pain ENT: Denies dizziness and Reports headache(s) Cardiovascular: Cardiovascular: Reports no additional cardiovascular complaints, Denies chest pain, Denies lightheadedness, Denies Loss of Consciousness and Denies dyspnea Respiratory: Respiratory: Reports no additional respiratory complaints, Reports cough and Denies dyspnea Gastrointestinal: Gastrointestinal: Reports no additional gastrointestinal complaints, Denies abdominal pain, Denies melena, Denies hematochezia, Denies change in bowel habits and Denies change in stool character Genitourinary: Genitourinary: Reports no additional male genitourinary complaints, Denies hematuria, Denies oliguria, Denies difficulty urinating, Denies dysuria, Denies urinary frequency, Denies urinary hesitancy, Denies urinary incontinence and Denies urinary urgency Musculoskeletal: Musculoskeletal: Reports no additional musculoskeletal complaints, Denies numbness and Denies tingling Neurologic: Denies dizziness, Reports headache(s), Denies loss of vision, Denies numbness, Denies tingling and Reports weakness Psychiatric: Psychiatric: Reports no additional psychiatric complaints Endocrine: Endocrine: Reports no additional endocrine complaints Hematologic/Lymphatic: Hematologic/Lymphatic: Reports no additional hematologic/lymphatic complaints Allergic/Immunologic: Allergic/Immunologic: Reports no additional allergic/immunologic complaints PMFSH Past Medical History Attestation statement: The following information was validated with the patient. Source: old records reviewed and nursing notes reviewed Medical History Migraine Anxiety Hypertension Asthma Social History Social History Patient Tobacco Use Status: Never used Tobacco Advance Directives: No Physical Exam ED Vital Signs: Vital Signs - 24 hr 05/08/23 14:01 Temperature 99.9 F Pulse Rate 108 H Respiratory Rate 18 Blood Pressure 152/89 H Pulse Oximetry 97 Oxygen Delivery Method Room Air BMI result Body Mass Index 29.9 Const General: cooperative, no acute distress, alert and awake Nutritional Appearance: well nourished Orientation/consciousness: patient oriented x3 Limitations: no limitations HENMT Head: Yes normal to inspection and Yes atraumatic Ears: hearing grossly normal bilaterally and external ears normal General nose exam: Normal external nose present, no nasal discharge noted and no epistaxis Face and sinus: Yes normal facial exam, No abrasion and No laceration Mouth: Normal oral and palatal mucosa present, no drooling and no muffled voice Eyes General: appearance normal, both eyes and all related structures Periorbital: periorbital findings normal Eyelids: Yes eyelids normal Conjunctivae: conjunctivae normal Pupils: Equal, round and reactive pupils present EOM: EOMs intact bilaterally Neck Neck: Yes normal visual inspection, Yes full ROM and Yes no lymphadenopathy Chest Chest palpation & inspection: normal inspection of the chest Resp Effort & Inspection: normal respiratory effort and able to speak in complete sentences Auscultation: clear to auscultation bilaterally Cardio Rate: regular rate Rhythm: regular rhythm GI Inspection: Yes normal to inspection Neuro General: patient oriented x3 and moves all extremities Cranial nerves: Yes Equal, round and reactive pupils present Cognition (Neuro): normal cognition Motor exam (neuro): 5/5 motor strength present throughout Sensory Exam: Normal double simultaneous stimulation for sensation Coordination: [id number] test normal Extrem General: Yes normal to inspection, Yes full ROM and Yes capillary refill normal Psych Appearance: grossly normal Mental Status: mental status grossly normal Affect: normal affect Attitude: cooperative Thought process: Normal thought process present Thought content: Normal thought content present Insight: Good insight present (Psych) Course Course Course Narrative: RME: 27-year-old male presents to ED for URI symptoms with chest pain only when he coughs. Patient states children are also sick. EKG already ordered by triage nurse. Swabs and x-ray ordered. Medical Decision Making Medical Decision Making [facility] Narrative: Patient is a 27 year old assigned male at with no reported medical history presenting to the emergency department today with a headache, fever, cough, and sore throat. Patient's physical exam was unremarkable. Patient's chest x-ray showed no acute process. Patient's influenza test was positive. Patient's strep and COVID-19 tests were negative. I explained my physical exam findings as well as all test results to the patient. I answered all questions asked by the patient. I stressed the importance of the patient taking his medication as prescribed. I stressed the importance of the patient following up with his primary care provider. I stressed the importance of the patient returning to the emergency department immediately if his symptoms were to worsen or if he were to develop any dizziness, shortness of breath, difficulty breathing, chest pain, blurry vision, loss of vision, nausea, vomiting, abdominal pain, fever, chills, back pain, or any other complaints. Patient verbalized agreement and understanding with this treatment plan and discharge. Differential Diagnosis Differential Diagnoses: The differential diagnosis associated with the presentation includes COVID-19 Influenza Strep pharyngitis Pharyngitis Admission/Observation Consideration of admission/observation: Escalation of care including admission/observation considered Patient would have been admitted to the hospital had his work up had any findings where hospital admission was appropriate and his clinical presentation warranted hospital admission. Lab Data [facility] Lab Attestation statement: I reviewed the patient's lab results. My interpretation of these results are in the [facility] Rationale portion of this note. Labs: Lab Results 05/08/23 05/08/23 Range/Units 14:29 15:11 COVID-19 ([facility]) Negative (Negative) COVID-19 Clin Com See Note Influenza Type A (TL) Positive A (Negative) Influenza Type B (TL) Negative (Negative) Influenza A & B Note See Note S. pyogenes GrpA TL Negative (Negative) Independent Interpretation I performed an independent interpretation of an: Plain X-Ray Interpretation: My interpretation is in agreement with the radiologist's impression of this imaging study. EXAMINATION: XR CHEST CLINICAL INFORMATION: Chest pain when coughing COMPARISON: Chest radiograph 10/29/2020. TECHNIQUE: Frontal view of the chest was obtained. FINDINGS: Clear lungs. No pleural effusion or pneumothorax. Cardiomediastinal silhouette is unchanged. XR/XR chest 1V IMPRESSION: No acute cardiopulmonary abnormality. Dictated By: Angel Luis Silva MD Signed By: Electronically signed by Angel Luis Silva MD 05/08/23 [id number] Radiology Impression Discussion of test interpretation with radiology: I have reviewed the radiologist's reading. Discharge Plan Discharge Clinical Impression: Influenza Patient Disposition: Home, Self-Care Instructions: Influenza (DC) Additional Instructions: Follow up with your primary care provider. Return to the emergency department immediately if your symptoms worsen or if you develop any dizziness, shortness of breath, difficulty breathing, chest pain, blurry vision, loss of vision, nausea, vomiting, abdominal pain, fever, chills, back pain, or any other complaints. Prescriptions: New oseltamivir [Tamiflu] 75 mg capsule 75 mg PO DAILY 5 Days Qty: 5 0RF No Action hydrochlorothiazide 12.5 mg tablet 12.5 mg PO DAILY Qty: 14 0RF hydrocortisone 2.5 % cream 1 appl topical TID PRN (Reason: itching) Qty: 30 0RF hydrochlorothiazide 12.5 mg capsule 12.5 mg PO DAILY Qty: 20 0RF hydroxyzine HCl 25 mg tablet 25 mg PO QID PRN (Reason: anxiety) Qty: 28 0RF lorazepam [Ativan] 1 mg tablet 1 mg PO BEDTIME PRN (Reason: anxiety) Qty: 10 0RF Referrals: [facility] [Primary Care Provider] - Stand Alone Forms: Work/School Release Interventions: ED Discharge Assessment Last Done: 05/08/23 15:40 Discharge Date/Time: 05/08/23 15:41 Print Language: Occitan
[2023-05-08 14:49] LABS: COVID-19 Test Negative (Negative); IDNOW Serial# 9DB6401D
[2023-05-08 14:51] LABS: IDNOW Serial# 58CA691E; Influenza A Positive (Negative); Influenza B2 Negative (Negative)
[2023-05-08 15:23] LABS: IDNOW Serial# 08D9AD1C
[2023-05-08 15:24] LABS: Strep A Nucleic Acid Negative (Negative)
== END 2023-05-08 15:41 | disposition home or self-care (01) ==
PROVIDERS: Physician Assistant; Physician Assistant Medical; Emergency Provider Emergency Medicine Emergency Medical Services
DX: J10.1 Influenza due to other identified influenza virus with other respiratory manifestations (principal); R50.9 Fever, unspecified; R05.9 Cough, unspecified; R51.9 Headache, unspecified; Z11.52 Encounter for screening for COVID-19
CPT/HCPCS: 71045; 87502; 87635; 87651; 93005; 99283

== ENCOUNTER → 2023-05-08 13:55 | Outpatient (BNV) | payer MEDICAID, SELFPAY | PROVIDERS: Emergency Provider Emergency Medicine Emergency Medical Services; Visit Provider Internal Medicine Cardiovascular Disease | DX: R07.9 Chest pain, unspecified (principal) | CPT/HCPCS: 93010 ==

== ENCOUNTER 2025-01-31 13:41 | Outpatient (REF) | payer OTHER, SELFPAY ==
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
--- OUTSIDE RECORDS SUMMARY | 2025-01-31 11:15 | XMS_ITS | Encounter Summary ---
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 Eating Plan Salt (sodium) helps you keep a healthy balance of fluids in your body. Too much sodium can raise your blood pressure. It can also cause fluid and waste to be held in your body. Your health care provider or dietitian may recommend a low-sodium eating plan if you have high blood pressure (hypertension), kidney disease, liver disease, or heart failure. Eating less sodium can help lower your blood pressure and reduce swelling. It can also protect your heart, liver, and kidneys. What are tips for following this plan? Reading food labels Check food labels for the amount of sodium per serving. If you eat more than one serving, you must multiply the listed amount by the number of servings. Choose foods with less than 140 milligrams (mg) of sodium per serving. Avoid foods with 300 mg of sodium or more per serving. Always check how much sodium is in a product, even if the label says unsalted or no salt added. Shopping Buy products labeled as low-sodium or no salt added. Buy fresh foods. ? Avoid canned foods and pre-made or frozen meals. ? Avoid canned, cured, or processed meats. Buy breads that have less than 80 mg of sodium per slice. Cooking Eat more home-cooked food. Try to eat less restaurant, buffet, and fast food. Try not to add salt when you cook. Use salt-free seasonings or herbs instead of table salt or sea salt. Check with your provider or pharmacist before using salt substitutes. Cook with plant-based oils, such as canola, sunflower, or olive oil. Meal planning When eating at a restaurant, ask if your food can be made with less salt or no salt. Avoid dishes labeled as brined, pickled, cured, or smoked. Avoid dishes made with soy sauce, miso, or teriyaki sauce. Avoid foods that have monosodium glutamate (MSG) in them. MSG may be added to some restaurant food,sauces, soups, bouillon, and canned foods. Make meals that can be grilled, baked, poached, roasted, or steamed. These are often made with lesssodium. General information Try to limit your sodium intake to 1,500?2,300 mg each day, or the amount told by your provider. What foods should I eat? Fruits Fresh, frozen, or canned fruit. Fruit juice. Vegetables Fresh or frozen vegetables. No salt added canned vegetables. No salt added tomato sauce and paste. Low-sodium or reduced-sodium tomato and vegetable juice. Grains Low-sodium cereals, such as oats, puffed wheat and rice, and shredded wheat. Low-sodium crackers. Unsalted rice. Unsalted pasta. Low-sodium bread. Whole grain breads and whole grain pasta. Meats and other proteins Fresh or frozen meat, poultry, seafood, and fish. These should have no added salt. Low-sodium canned tuna and salmon. Unsalted nuts. Dried peas, beans, and lentils without added salt. Unsalted cannedbeans. Eggs. Unsalted nut butters. Dairy Milk. Soy milk. Cheese that is naturally low in sodium, such as ricotta cheese, fresh mozzarella, or Montserratian cheese. Low-sodium or reduced-sodium cheese. Cream cheese. Yogurt. Seasonings and condiments Fresh and dried herbs and spices. Salt-free seasonings. Low-sodium mustard and ketchup. Sodium-freesalad dressing. Sodium-free light mayonnaise. Fresh or refrigerated horseradish. Lemon juice. Vinegar. Other foods Homemade, reduced-sodium, or low-sodium soups. Unsalted popcorn and pretzels. Low-salt or salt-freechips. The items listed above may not be all the foods and drinks you can have. Talk to a dietitian to learn more. What foods should I avoid? Vegetables Sauerkraut, pickled vegetables, and relishes. Olives. Solomon Islander fries. Onion rings. Regular canned vegetables, except low-sodium or reduced-sodium items. Regular canned tomato sauce and paste. Regular tomato and vegetable juice. Frozen vegetables in sauces. Grains Instant hot cereals. Bread stuffing, pancake, and biscuit mixes. Croutons. Seasoned rice or pasta mixes. Noodle soup cups. Boxed or frozen macaroni and cheese. Regular salted crackers. Self-rising flour. Meats and other proteins Meat or fish that is salted, canned, smoked, spiced, or pickled. Precooked or cured meat, such as sausages or meat loaves. Cohen. Ham. Pepperoni. Hot dogs. Corned beef. Chipped beef. Salt pork. Jerky. Pickled melissa, anchovies, and sardines. Regular canned tuna. Salted nuts. Dairy Processed cheese and cheese spreads. Hard cheeses. Cheese curds. Blue cheese. Feta cheese. String cheese. Regular cottage cheese. Buttermilk. Canned milk. Fats and oils Salted butter. Regular margarine. Ghee. Cohen fat. Seasonings and condiments Onion salt, garlic salt, seasoned salt, table salt, and sea salt. Canned and packaged gravies. Worcestershire sauce. Tartar sauce. Barbecue sauce. Teriyaki sauce. Soy sauce, including reduced-sodium soy sauce. Steak sauce. Fish sauce. Oyster sauce. Cocktail sauce. Horseradish that you find on the shelf. Regular ketchup and mustard. Meat flavorings and tenderizers. Bouillon cubes. Hot sauce. Pre-made or packaged marinades. Pre-made or packaged taco seasonings. Relishes. Regular salad dressings. Salsa. Other foods Salted popcorn and pretzels. Farnsworth chips and puffs. Potato and tortilla chips. Canned or dried soups. Pizza. Frozen entrees and pot pies. The items listed above may not be all the foods and drinks you should avoid. Talk to a dietitian mandy lanier. This information is not intended to replace advice given to you by your health care provider. Make sure you discuss any questions you have with your health care provider. Document Released: 2002-09-03 Document Updated: 2023-03-31 Document Reviewed: 2023-03-31 Elsevier Patient Education ? 2024 [employer]. documented in this encounter Plan of Treatment Upcoming Encounters Date Type Department Care Team (Late st Contact Info) Description 03/13/2025 4:00 PM EST Telemedicine [facility] MEDICINE [address] [place] [address] Roxie Aguirre ANP [address] [place] [address] Pending Results Name Type Priority Associated Diagnoses Date /Time Basic Metabolic Panel Lab Routine Essential hypertension Anxiety 01/31/2025 1:46 PM EST Scheduled Orders Name Type Priority Associated Diagnoses Orde r Schedule TSH W/Reflex to FT4 Lab Routine Anxiety Expected: 01/31/2025 (Approximate), Expires: 01/31/2026 Hemoglobin A1c Lab Routine Anxiety Expected: 01/31/2025 (Approximate), Expires: 01/31/2026 [facility]omnography [facility] Center Routine Witnessed episode of apnea Expected: 01/31/2025 (Approximate), Expires: 01/31/2026 documented as of this encounter Procedures Procedure Name Priority Date/Time Associated Diagnosis Comments BASIC METABOLIC PANEL Routine 01/31/2025 1:46 PM EST Essential hypertension Anxiety documented in this encounter Visit Diagnoses Diagnosis Essential hypertension- Primary Unspecified essential hypertension Anxiety Anxiety state, unspecified Dietary counseling Dietary surveillance and counseling Exercise counseling Compression fracture of lumbar vertebra, unspecified lumbar vertebral level, sequela Mild intermittent reactive airway disease without complication Witnessed episode of apnea documented in this encounter Additional Health Concerns Assessment Noted Time PHQ-9 Depression Total Score: 4 01/31/20 25 4:04 PM EST documented as of this encounter Care Teams Rn Patient Care Relationship Specialty Start Date End Date Roxie Aguirre ANP [address] [place] [phone] PCP - General Family Medicine 12/22/20 documented as of this encounter
[2025-01-31 16:33] LABS: Anion Gap 13 (12-20); Blood Urea Nitrogen 11 mg/dL (9-16); Calcium 10.3 mg/dL (8.4-10.2); Carbon Dioxide 29 mmol/L (22-29); Chloride 101 mmol/L (96-108); Estimated Glomerular Filt Rate > 60; Potassium 4.0 mmol/L (3.3-5.1); Sodium 139 mmol/L (135-145)
--- OUTSIDE RECORDS SUMMARY | 2025-01-31 16:42 | XMS_ITS | Encounter Summary ---
Author Organization [employer] Address [address] [place] [address] Care Team Providers Care Agency Owner Name Role Phone Roxie Aguirre Primary Care Provider [phone] Reason for Visit * Reason Onset Date Comments Med Refill 10/06/2022 Encounter Details Date Type Department Care Team ([facility] st Contact Info) Description 10/06/2022 Telephone [facility] MEDICINE [address] [place] [address] Roxie Aguirre ANP [address] [place] [address] Med Refill Social History Tobacco Use Types Packs/Day Years Used Date Smoking Tobacco: Never Passive Smoke Exposure: Never Smokeless Tobacco: Never Alcohol Use Standard Drinks/Week Comments Not Currently 0 (1 standard drink = 0.6 oz pur e alcohol) Depression Answer Date Recorded Patient Health Questionnaire-2 Score 0 04/06/2022 Sex and Gender Information Value Date Recorded Sex Assigned at Male 01/25/2022 10:39 AM EDT Legal Sex Male 10:39 AM EDT Gender Identity Male 01/25/2022 10:39 AM EDT Sexual Orientation Straight 01/25/2022 10 :39 AM EDT documented as of this encounter Miscellaneous Notes * Telephone Encounter - Haydee Mejia - 10/06/2022 11:39 AM EDT Tc from pt requesting a higher dosage on cetirizine (ZyrTEC) 10 MG tablet. States he has been taking two tablets instead of one. documented in this encounter Plan of Treatment Upcoming Encounters Date Type Department Care Team (Late st Contact Info) Description 03/13/2025 4:00 PM EST Telemedicine [facility] MEDICINE [address] [place] [address] Roxie Aguirre ANP [address] [place] [address] documented as of this encounter Visit Diagnoses Not on filedocumented in this encounter Care Teams Agency Owner Relationship Specialty Start Date End Date Roxie Aguirre ANP [address] [place] [address] PCP - General Family Medicine 12/22/20 documented as of this encounter
--- OUTSIDE RECORDS SUMMARY | 2025-01-31 16:42 | XMS_ITS | Clinical Summary ---
Author Organization [employer] Address [address] [place] [address] [address] [place] [address] Care Team Providers Care Labor Relations Manager Name Role Phone Roixe Aguirre Primary Care Provider [phone] Allergies No known active allergies Medications cetirizine (ZyrTEC) 10 MG tabletIndication s:Rash TAKE 1 TABLET BY MOUTH EVERY DAY IN THE MORNING 90 tablet 1 05/29/19 25 Active hydroCHLOROthiaz jaqueline (HYDRODiuril) 25 MG tabletIndication s:Essential hypertension Take 1 tablet (25 mg) by mouth Once per day. 30 tablet 11 01/31/20 25 026 Active albuterol 108 (90 Base) MCG/ACT inhalerIndicatio ns:Mild intermittent reactive airway disease without complication Take as needed every 4-6 hours for SOB/wheezin g 18 g 1 02/01/20 25 Active escitalopram (Lexapro) 5 MG tabletIndication s:Anxiety Take 1 tablet (5 mg) by mouth Once per day. 30 tablet 2 02/01/20 25 026 Active albuterol 108 (90 Base) MCG/ACT inhaler Inhale 2 puffs every 4 (four) hours. 12/23/19 21 025 Discontinued(Re order (will not trigger notification to Pharmacy)) hydroCHLOROthiaz jaqueline (HYDRODiuril) 12.5 MG tablet Take 1 tablet by mouth at bed time. 11/28/19 22 025 Discontinued(Me d list cleanup (will not trigger notification to Pharmacy)) LORazepam (Ativan) 1 MG tablet take 1 tablet by oral route at bedtime as needed, try to limit use 11/15/19 21 025 Discontinued(Th erapy completed) Active Problems Problem Noted Date Diagnosed Date Anxiety 01/31/2025 Reactive airway disease without complication 08/2024 Vertebral compression fracture 05/25/2023 Overview (06/09/2023): Last Assessment & Plan: Superior endplate compression fractures of T12, L1, L2 vertebral bodies - Spine consult - TLS precautions Essential hypertension 04/06/2022 Resolved Problems Problem Noted Date Diagnosed Date Resolved Date Scalp laceration 05/25/2023 01/31/2025 Overview (06/09/2023): Last Assessment & Plan: Posterior scalp laceration about 5 cm -Repaired with 8 tawana Encounters Date Type Department Care Team Description 01/31/2025 11:15 AM EST Office Visit [facility] [address] [place] [phone] Roxie Aguirre ANP Essential hypertension (Primary Dx); Anxiety; Dietary counseling; Exercise counseling; Compression fracture of lumbar vertebra, unspecified lumbar vertebral level, sequela; Mild intermittent reactive airway disease without complication; Witnessed episode of apnea 01/30/2025 4:00 PM EST Office Visit [facility] [address] [place] [phone] Stephanie Jerez MD Essential hypertension (Primary Dx); Depression with anxiety; Anxiety 01/30/2025 Travel 01/30/2025 Telephone [facility] [address] [place] [phone] Roxie Aguirre ANP 01/25/[address] [address] Roxie Aguirre ANP Nurse Triage from Last 3 Months Immunizations Immunization Administration Dates Next Due Hep A, ped/adol, 2 dose 06/09/2015 Influenza Injectable Quadriv alant Preservative Free IIV4 MDCK 01/05/2020,01/07/2019 Influenza injectable quadriv alent IIV4 with preservative 04/03/2015 Influenza injectable quadrivalent preservative f ree 12/22/2020 Meningococcal MCV4P ACYW-135 04/03/2015 Pfizer Covid-19 Vaccine 12+ 01/23/2021, Tdap 12/15/2021,12/22/2020 Social History Tobacco Use Types Packs/Day Years [...] Orientation Straight 01/25/2022 10 :39 AM EDT Last Filed Vital Signs Vital Sign Reading [...] Mass Index 30.02 01/31/2025 11:19 AM EST Plan of Treatment Upcoming Encounters Date Type Department Care Team (Late st Contact Info) Description 03/13/2025 4:00 PM EST Telemedicine [facility] [address] [place], [place] [phone] Roxie Aguirre ANP [address] [place], [place] [phone] Health Maintenance Due Date Last Done Comments Lipid Panel 1997 SDOH Screening 1997 Disability Screening 1997 Family Planning (PISQ) 2012 HPV Vaccines (1 - Male 3-dose series) 2012 Hepatitis C Screening 07/28/2015 Hepatitis A Vaccines (2 of 2 - 2-dose series) 12/10/2015 06/09/2015 Hepatitis B Vaccines (1 of 3 - 19+ 3-dose series) 2016 Pneumococcal Vaccine: Pediatrics (0 to 5 Years) and At-Risk Patients (6 to 49) Years (1 of 2 - PCV) 2016 COVID-19 Vaccine (3 - season) 2024 01/23/2021, 12/30/2020 Influenza Vaccine (#1) 2024 , 01/05/2020, 01/07/2019, Additional history exists Depression Screening 01/30/2026 01/30/2025, 01/31/20 Alcohol/Substance Use Screening 01/31/2026 01/31/2025 Tobacco Screening 01/31/2026 01/31/2025 DTaP/Tdap/Td Vaccines (3 - Td or Tdap) 12/16/2031 12/15/2021, 12/22/2020 Zoster Vaccines (1 of 2) 07/28/2047 RSV Patients and Patients Aged 60 years or older (1 - 1-dose 75+ series) 2072 Meningococcal Vaccine Completed 04/03/2015 HIV Screening Completed 04/06/2022 HIB Vaccines Aged Out No longer eligi ble based on patient's age to complete this topic IPV Vaccines Aged Out No longer eligi ble based on patient's age to complete this topic Meningococcal B Vaccine Aged Out No l onger eligible based on patient's age to complete this topic RSV under 20 months Aged Out No longe r eligible based on patient's age to complete this topic Rotavirus Vaccines Aged Out No longer eligible based on patient's age to complete this topic Procedures Procedure Name Priority Date/Time Associated Diagnosis Comments BASIC METABOLIC PANEL Routine 01/31/2025 1:46 PM EST Essential hypertension Anxiety HIV 1/2 ANTIGEN/ANTIBODY, FOURTH GENERATION W/RFL Routine 04/06/2022 1:49 PM EST from Last 3 Months or Most Recently Relevant to Health Maintenance Results * HIV-1/2 Antigen and Antibodies, Fourth Generation, with Reflexes (04/06/2022 1:49 PM EST) Pathologist [facility] HIV Antigen/Antibody, 4th Generation NON-REAC TIVE NON-REAC TIVE [employer] [facility] Comment: HIV-1 antigen and HIV-1/HIV-2 antibodies were not detected. There is no laboratory evidence of HIV infection. PLEASE NOTE: This information has been disclosed to you from records whose confidentiality may be protected by state law. If your state requires such protection, then the state law prohibits you from making any further disclosure of the information without the specific written consent of the person to whom it pertains, or as otherwise permitted by law. A general authorization for the release of medical or other information is NOT sufficient for this purpose. For additional information please refer to http://education.[employer].Fippex/faq/CND453 (This link is being provided for informational/ educational purposes only.) The performance of this assay has not been clinically validated in patients less than 2 years old. 04/06/2022 1:49 PM EST 04/06/2022 1:50 PM EST us [facility] LAB BLOOD ORDERABLES Final Resul t [facility] [address] [facility] [place] [phone] [employer] [facility] [address] , ([address]) [place] [address] from Last 3 Months or Most Recently Relevant to Health Maintenance Insurance [employer] PPO GENERIC WORKERS' COMP [employer] Care Teams Labor Relations Manager Relationship Specialty Start Date End Date Roxie Aguirre ANP [address] [place] [phone] PCP - General Family Medicine 12/22/20
--- OUTSIDE RECORDS SUMMARY | 2025-01-31 16:42 | XMS_ITS | Encounter Summary ---
Author Organization [employer] Address [address] [place] [address] 7 [place] [address] Care Team Providers Care Airframe Technical Officer Name Role Phone Timothy Roxie CAMPOS Primary Care Provider [phone] Encounter Details Date Type Department Care Team (Latest Contact Info) Description 01/30/2025 Travel Social History Tobacco Use Types Packs/Day Years [...] AM EDT documented as of this encounter Functional Status * Over the past 2 weeks, how often have you been bothered by any of the following problems? Question Answer Date of Assessment Author Patient Health Questionnaire-2 Score 0 07/2024 4:04 PM Dixie Bañuelos MA * Little interest or pleasure in doing things Answer Date of Assessment Author Not at all 01/30/2025 4:04 PM Giselle Bañuelos MA * Feeling down, depressed, or hopeless Answer Date of Assessment Author Not at all 01/30/2025 4:04 PM Giselle Bañuelos MA * Trouble falling or staying asleep, or sleeping too much Answer Date of Assessment Author Several days 01/30/2025 4:04 PM Giselle Bañuelos MA * Feeling tired or having little energy Answer Date of Assessment Author Several days 01/30/2025 4:04 PM Giselle Bañuelos MA * Poor appetite or overeating Answer Date of Assessment Author Several days 01/30/2025 4:04 PM Giselle Bañuelos MA * Feeling bad about yourself - or that you are a failure or have let yourself or your family down Answer Date of Assessment Author Not at all 01/30/2025 4:04 PM Giselle Bañuelos MA * Trouble concentrating on things, such as reading the newspaper or watching television Answer Date of Assessment Author Several days 01/30/2025 4:04 PM Giselle Bañuelos MA * Moving or speaking so slowly [...] of Assessment Author 4 01/30/2025 4:04 PM Giselle Bañuelos MA * How difficult have these problems made it for you to do your work, take care of things at home, or get along with other people? Answer Date of Assessment Author Somewhat difficult 01/30/2025 4:04 PM Dixie Bañuelos MA documented as of this encounter Plan of Treatment Upcoming Encounters Date Type Department Care Team (Late st Contact Info) Description 03/13/2025 4:00 PM EST Telemedicine [facility] [address] [place] [address] Roxie Aguirre ANP [address] [place] [address] documented as of this encounter Visit Diagnoses Not on filedocumented in this encounter Additional Health Concerns Assessment Noted Time PHQ-9 Depression Total Score: 4 01/31/20 25 4:04 PM EST documented as of this encounter Care Teams Airframe Technical Officer Relationship Specialty Start Date End Date Roxie Aguirre ANP [address] [place] [address] PCP - General Family Medicine 12/22/20 documented as of this encounter
--- OUTSIDE RECORDS SUMMARY | 2025-01-31 16:42 | XMS_ITS | Encounter Summary ---
Author Organization [facility] Address [address] [place] [address] 7 [place] [address] Care Team Providers Care Biosolids Management Technician Name Role Phone Roxie Aguirre Primary Care Provider [phone] Encounter Details Date Type Department Care Team ([facility] st Contact Info) Description 01/30/2025 Telephone [facility] [address] [place] [address] Roxie Aguirre ANP [address] [place] [address] Social History Tobacco Use Types Packs/Day Years [...] Assessment Author Several days 01/30/2025 4:04 PM David Bañuelos MA * Poor appetite or overeating [...] PM MT Pink, Giselle becker [place] * Thoughts that you would be [...] difficult 01/30/2025 4:04 PM Dixie Bañuelos MA * Over the last 2 weeks, how often have you been bothered by any of the following problems? Question Answer Date of Assessment Author Feeling nervous, anxious, or on edge 2 01/31/2025 11:24 AM Scott Canales MA Not being able to stop or [...] Canales [place] documented as of this encounter Miscellaneous Notes * Telephone Encounter - Sergio Powell - 01/30/2025 3:22 PM EST Symptoms: Anxiety or Panic Attack, High Blood Pressure - Caller Reports Outcome: Schedule an urgent appointment (within 1 hour) or talk to a nurse or provider soon Reason: Getting worse The caller accepted this outcome. Contact pt at [phone] documented in this encounter Plan of Treatment Upcoming Encounters Date Type Department Care Team ([facility] st Contact Info) Description 03/13/2025 4:00 PM EST Telemedicine [facility] [address] [place] [phone] Roxie Aguirre ANP [address] [place] [address] documented as of this encounter Visit Diagnoses Not on filedocumented in this encounter Additional Health Concerns Assessment Noted Time PHQ-9 Depression Total Score: 4 01/31/20 25 4:04 PM EST documented as of this encounter Care Teams Biosolids Management Technician Relationship Specialty Start Date End Date Roxie Aguirre ANP [address] [place] [phone] PCP - General Family Medicine 12/22/20 documented as of this encounter
--- OUTSIDE RECORDS SUMMARY | 2025-01-31 16:42 | XMS_ITS | Clinical Summary ---
Author Organization [facility] Address [address] [place] [address] Care Team Providers Care Bulk Driver Name Role Phone [facility] Primary Care Provider [phone] Allergies No known active allergies Active Problems Problem Noted Date Diagnosed Date Vertebral compression fracture 05/25/2023 Assessment & Plan (05/25/2023 4:56 PM EST): Superior endplate compression fractures of T12, L1, L2 vertebral bodies - Spine consult - TLS precautions Scalp laceration 05/25/2023 Assessment & Plan (05/25/2023 4:57 PM EST): Posterior scalp laceration about 5 cm -Repaired with 8 tawana Social History Tobacco Use Types Packs/Day Years Used Date Smoking Tobacco: Never Assessed Sex and Gender Information Value Date Recorded Sex Assigned at Male 05/25/2023 7:51 PM EST Legal Sex Male 1:07 PM EST Gender Identity Not on file Sexual Orientation Not on file Last Filed Vital Signs Vital Sign Reading Time Taken Comments Blood Pressure 158/93 05/25/2023 1:26 PM EST Pulse 104 05/25/2023 1:30 PM EST Temperature 37 C (98.6 F) 05/25/2023 1:26 PM EST Respiratory Rate 18 05/25/2023 8:30 PM EST Oxygen Saturation 97% 05/25/2023 1:30 PM EST Inhaled Oxygen Concentration - - Weight - - Height - - Body Mass Index - - Plan of Treatment Health Maintenance Due Date Last Done Comments Hepatitis C Screening 1997 Varicella Vaccines (1 of 2 - 13+ 2-dose series) 2010 Hepatitis B Vaccines (1 of 3 - 19+ 3-dose series) 2016 Alcohol/Substance Use Screening 03/28/2024 Depression Screening and Follow-Up 03/28/2024 Social Drivers of Health Annual Screening 03/28/2024 COVID-19 Vaccine (3 - 2024- season) 2024 01/23/2021, 12/30/2020 Influenza Vaccine (#1) 2024 , 01/05/2020, 01/07/2019, Additional history exists DTaP,Tdap,and Td Vaccines (3 - Td or Tdap) 12/16/2031 12/15/2021, 12/22/2020 HIV Screening Completed 04/06/2022 Pneumococcal Vaccine: Pediatric (0-5 Years) and At-Risk Patients (6-50 Years) Aged Out No longer eligible based on patient's age to complete this topic Insurance [facility] Care Teams Bulk Driver Relationship Specialty Start Date End Date [address] [phone] PCP - General 05/25/23
== END 2025-01-31 13:42 | disposition home or self-care (01) ==
LOC: HO.HHCL 13:41
PROVIDERS: PCP Nurse Practitioner Primary Care; Visit Provider Nurse Practitioner Primary Care
DX: Z13.1 Encounter for screening for diabetes mellitus (principal); I10 Essential (primary) hypertension; E83.52 Hypercalcemia; F41.9 Anxiety disorder, unspecified
CPT/HCPCS: 36415; 80048; 82306; 83036; 84443

== ENCOUNTER 2025-02-01 14:34 | Inpatient (IN) | payer OTHER, SELFPAY ==
--- OUTSIDE RECORDS SUMMARY | 2025-01-30 16:00 | XMS_ITS | Encounter Summary ---
Author Organization [employer] Address [address] [place] [address] [address] [place] [address] Care Team Providers Care Metal Fabricating Inspector Name Role Phone Roxie Aguirre Primary Care Provider [phone] Reason for Visit * Reason Comments Hypertension Encounter Details Date Type Department Care Team ([facility] Contact Info) Description 01/30/2025 4:00 PM EST Office Visit [facility] [address] [place] [address] Stephanie Jerez MD [address] [place] [address] Essential hypertension (Primary Dx); Depression with anxiety; [...] MD - 01/30/2025 4:00 PM EST Subjective aJni Tobar, 29 years Anxiety and Depression - [...] during encounter. - Prescribed hydrochlorothiazide. 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 and start tonight, then [...] Info) Description 03/13/2025 4:00 PM EST Telemedicine [facility] [address] [place] [address] Roxie Aguirre ANP [address] [place] [address] documented as of this encounter Visit Diagnoses Diagnosis Essential hypertension- Primary Unspecified essential hypertension Depression with anxiety Dysthymic disorder Anxiety Anxiety state, unspecified documented in this encounter Additional Health Concerns Assessment Noted Time PHQ-9 Depression Total Score: 4 01/31/20 25 4:04 PM EST documented as of this encounter Care Teams Metal Fabricating Inspector Relationship Specialty Start Date End Date Roxie Aguirre ANP [address] [place] [address] PCP - General Family Medicine 12/22/20 documented as of this encounter
--- OUTSIDE RECORDS SUMMARY | 2025-01-31 11:15 | XMS_ITS | Encounter Summary ---
Author Organization [employer] Address [address] [place] [address] 7 [place] [address] Care Team Providers Care Senior Geologist Name Role Phone Roxie Aguirre Primary Care Provider [phone] Reason for Referral * Hospital - Outpatient (Routine) - Authorized Specialty Diagnoses / Procedures Referred By Contkwesi martinez Referred To Contact Diagnoses Witnessed episode of apnea Procedures Polysomnography Roxie Aguirre ANP [address] [place] [address] Phone: tel: fax: [address] Phone: tel: fax: Referral ID Status Reason Start Date Expiration Date V isits Requested Visits Authorized [id number] Authorized 01/31/2025 01/31/2026 1 1 Reason for Visit * Reason Comments Follow-up Anxiety Encounter Details Date Type Department Care Team (Late st Contact Info) Description 01/31/2025 11:15 AM EST Office Visit [facility] MEDICINE [address] [place] [address] Roxie Aguirre ANP [address] [place], [place] [phone] Essential hypertension (Primary Dx); Anxiety; Dietary counseling; [...] tablets) once daily. Please message us on [employer] if you do this so we can [...] compression fx Acute Concerns: Seen yesterday at [facility] and started on hydrochlorothiazide d/t [...] mo tele Medications Ordered Prior to Encounter[4] Norwegian Translation: Patient is bilingual and declines translation [...] videos and all your education online visit, [email or web address] or scan this QR code with your [...] Dairy Whole or 2% milk, cream, and [id number]. Whole or full-fat cream cheese. Whole-fat or [...] more information National Heart, Lung, and Blood Huffman (NHLBI): nhlbi.nih.gov [place] Heart Association (AHA): heart.org Academy of Nutrition and Dietetics: eatright.org National Kidney Foundation (NKF): kidney.org This information is not intended to replace advice given to you by your health care provider. Make sure you discuss any questions you have with your health care provider. Document Released: 2012-03-02 Document Updated: 2023-03-31 Document Reviewed: 2023-03-31 Elsevier Patient Education ? 2024 [employer] * Patient Education Note - BETH Hernandez - 01/31/2025 5:12 PM EST Images from the original note were not included. Patient Education Table of Contents Low-Sodium Eating Plan To view videos and all your education online visit, [email or web address] or scan this QR code with your [...] such as ricotta cheese, fresh mozzarella, or Eritrean cheese. Low-sodium or reduced-sodium cheese. Cream cheese. [...] Vegetables Sauerkraut, pickled vegetables, and relishes. Olives. Salvadorean fries. Onion rings. Regular canned vegetables, except [...] Salsa. Other foods Salted popcorn and pretzels. Hyder chips and puffs. Potato and tortilla chips. [...] 2002-09-03 Document Updated: 2023-03-31 Document Reviewed: 2023-03-31 [employer] Patient Education ? 2024 [employer]. * Patient Education Note - BETH Hernandez - 01/31/2025 5:11 PM EST Images from the original note were not included. Patient Education Table of Contents Low-Sodium Eating Plan To view videos and all your education online visit, [email or web address] or scan this QR code with your [...] such as ricotta cheese, fresh mozzarella, or Eritrean cheese. Low-sodium or reduced-sodium cheese. Cream cheese. [...] Vegetables Sauerkraut, pickled vegetables, and relishes. Olives. Salvadorean fries. Onion rings. Regular canned vegetables, except [...] Salsa. Other foods Salted popcorn and pretzels. Hyder chips and puffs. Potato and tortilla chips. [...] Reviewed: 2023-03-31 Elsevier Patient Education ? 2024 [employer]. documented in this encounter Plan of Treatment Upcoming Encounters Date Type Department Care Team (Late st Contact Info) Description 03/13/2025 4:00 PM EST Telemedicine [facility] MEDICINE [address] [place] [address] Roxie Aguirre ANP [address] [place] [address] Scheduled Orders Name Type Priority Associated Diagnoses Orde r Schedule Polysomnography Sleep [facility] Routine Witnessed episode of apnea Expected: 01/31/2025 (Approximate), Expires: 01/31/2026 documented as of this encounter Procedures Procedure Name Priority Date/Time Associated Diagnosis Comments TSH W/REFLEX TO FT4 Routine 01/31/2025 1 :46 PM EST Anxiety HEMOGLOBIN A1C Routine 01/31/2025 1:46 PM EST Anxiety BASIC METABOLIC PANEL Routine 01/31/2025 1:46 PM EST Essential hypertension Anxiety documented in this encounter Results * Hemoglobin A1c (01/31/2025 1:46 PM EST) Hemoglobin A1c 5.2 <6.0 % [facility] Comment:Hemoglobin A1C Refer ence Range Adults: 4.8 - 6.0 % Non diabetic: < 6.0 % Goal: < 7.0 %Additional Action Suggested: > 8.0 %Note: Hemoglobin A1c results are invalid for patients with abnormal amounts of HbF. Blood transfusions may impact the HbA1c concentration in the patient sample. Estimated Average Glucose 103 mg/dL [facility] Comment:eAG = Estimated ave rage glucose which is %A1C expressed asaverage glucose, using the formula of the Z8V-XovsgrgXsvesre Glucose study (ADAG), Diabetes Care, Vol.31,#8,Oct. 2007 Blood Venous blood specimen / Unknown 01/31/2025 1:46 PM EST 01/31/2025 3:59 PM EST Roxie Aguirre ANP LAB BLOOD ORDERABLES Final Resul t Performing Organization Address [facility] Co de Phone Number [facility] [address] [place] [phone] * TSH W/Reflex to FT4 (01/31/2025 1:46 PM EST) TSH reflex Free T4 1.01 0.32 - 4.0 uIU/mL [facility] Blood Venous blood specimen / Unknown 01/31/2025 1:46 PM EST 01/31/2025 3:59 PM EST Roxie Aguirre [facility] LAB BLOOD ORDERABLES Final Resul t Performing Organization Address [facility] de Phone Number [facility] [address] [place] [phone] * (ABNORMAL) Basic Metabolic Panel (01/31/2025 1:46 PM EST) Sodium 139 135 - 145 mmol/L [facility] Potassium 4.0 3.3 - 5.1 mmol/L [facility] Chloride 101 96 - 108 mmol/L [facility] Carbon Dioxide 29 22 - 29 mmol/L [facility] Anion Gap 13 12 - 20 [facility] Urea Nitrogen (BUN) 11 9 - 16 mg/dL [facility] Creatinine, Serum 0.95 0.5 - 1.4 mg/dL [facility] Estimated Glomerular Filt Rate >60 [facility] Comment:Chronic Kidney Disea se: Estimated GFR < 60 mL/min/1.77h9Gagubt Kidney Disease: Estimated GFR < 15 mL/min/1.73m2 Glucose 96 60 - 115 mg/dL [facility] Calcium 10.3(H) 8.4 - 10.2 mg/dL [facility] Blood Venous blood specimen / Unknown 01/31/2025 1:46 PM EST 01/31/2025 3:59 PM EST Roxie CAMPOS LAB BLOOD ORDERABLES Final Resul t [facility] [address] [place] [phone] documented in this encounter Visit Diagnoses Diagnosis [...] documented as of this encounter Care Teams Senior Geologist Relationship Specialty Start Date End Date Roxie Aguirre ANP [address] [place] [address] PCP - General Family Medicine 12/22/20 documented as of this encounter
[2025-02-01] VITALS (8 sets, daily range): BP systolic 127–186; BP diastolic 79–120; PULSE 94–133; RESP 13–16; TEMP 36.7; O2SAT 95–99; BMI 29.1
--- NOTE | 2025-02-01 | ECG_ITS ---
Test Reason : TACHYCARDIA Blood Pressure : */* mmHG Vent. Rate : 113 BPM Atrial Rate : 113 BPM P-R Int : 146 ms QRS Dur : 88 ms QT Int : 332 ms P-R-T Axes : 61 73 26 degrees QTcB Int : 455 ms Sinus tachycardia Otherwise normal ECG When compared with ECG of 08-May-2023 13:55, No significant change was found Referred By: Generic ED Physician Electronically Signed By: Fercho Torres
[2025-02-01 15:40] LABS: MANUAL DIFF FLAG NO
[2025-02-01 15:57] LABS: Hematocrit 48.1 % (42.0-52.0); Hemoglobin 17.5 g/dl (14.0-18.0); Imm Gran Abs Auto 0.04 X10*3/uL (0.00-0.03); Imm Gran Pct Auto 0.3 % (0.0-0.4); Lymphocytes Absolute Auto 1.8 X10*3/uL (1.2-4.9); Mean Corpuscular HGB Conc 36.4 g/dl (31.0-36.0); Mean Corpuscular Hemoglobin 29.8 pg (27.0-33.0); Mean Corpuscular Volume 81.9 fL (80.0-98.0); NRBC Abs Auto 0.000 X10*3/uL (0.0-0.012); NRBC Pct Auto 0.0 /100WBC (0.0-0.2); Platelet Count 438 X10*3/uL (160-400); Red Blood Count 5.87 X10*6/uL (4.60-5.80); White Blood Count 12.7 X10*3/uL (4.8-10.8)
[2025-02-01 16:01] LABS: Troponin-I High Sensitivity < 2.7 ng/L (<3.5-35.0)
[2025-02-01 16:06] LABS: Alanine Aminotransferase 72 U/L (0-40); Albumin Level 5.4 g/dL (3.5-5.0); Alkaline Phosphatase 57 U/L (39-117); Anion Gap 17 (12-20); Aspartate Amino Transferase 34 U/L (5-37); Blood Urea Nitrogen 12 mg/dL (9-16); Calcium 10.1 mg/dL (8.4-10.2); Carbon Dioxide 21 mmol/L (22-29); Chloride 101 mmol/L (96-108); Creatinine Clr Calc Pharmacy 128.0; Estimated Glomerular Filt Rate > 60; Magnesium 1.8 mg/dL (1.6-2.6); Potassium 3.4 mmol/L (3.3-5.1); Sodium 136 mmol/L (135-145); Total Protein 8.2 g/dL (6.5-8.0)
--- OUTSIDE RECORDS SUMMARY | 2025-02-01 16:34 | XMS_ITS | Clinical Summary ---
Author Organization [facility] Address [address] [place] [address] Care Team Providers Care Carton Forming Machine Helper Name Role Phone [facility] Primary Care Provider [phone] Allergies No known active allergies Active Problems [...] patient's age to complete this topic Insurance [facility] Care Teams Carton Forming Machine Helper Relationship Specialty Start Date End Date [address] [address] PCP - General 05/25/23
--- OUTSIDE RECORDS SUMMARY | 2025-02-01 16:34 | XMS_ITS | Encounter Summary ---
Author Organization [employer] Address [address] [place] [address] 7 [place] [address] Care Team Providers Care Executive Director Sheltered Workshop Name Role Phone Timothy Roxie CAMPOS Primary Care Provider [phone] Encounter Details Date Type Department Care Team (Late st Contact Info) Description 02/01/2025 Orders Only GENERIC EXTERNAL DATA DEPARTMENT Provider, Generic External Data Social History Tobacco Use Types Packs/Day Years [...] the past 12 months, has t he [employer], gas, oil or water [employer] threatened to shut off services in your [...] AM EDT documented as of this encounter Plan of Treatment Upcoming Encounters Date Type Department Care Team (Late st Contact Info) Description 03/13/2025 4:00 PM EST Telemedicine [facility] [address] [place], [place] [phone] Roxie Aguirre ANP [address] [place] [address] documented as of this encounter Procedures Procedure Name Priority Date/Time Associated Diagnosis Comments HIGH SENSITIVITY TROPONIN I Routine 02/01/2025 3:31 PM EST CBC WITH AUTO DIFFERENTIAL Routine 02/01/2025 3:31 PM EST PHOSPHATE ( PHOSPHORUS) Routine 02/01/2025 3:31 PM EST MAGNESIUM Routine 02/01/2025 3:31 PM EST COMPREHENSIVE METABOLIC PANEL Routine 02/01/2025 3:31 PM EST documented in this encounter Results * Magnesium (02/01/2025 3:31 PM EST) Magnesium 1.8 1.6 - 2.6 mg/dL [facility] 02/01/2025 3:31 PM EST 02/01/2025 3:38 PM EST us Generic External Data Provider LAB BLOOD ORDERAB LES Final Result [facility] [address] [place] [address] [phone] * (ABNORMAL) Phosphate (As Phosphorus) (02/01/2025 3:31 PM EST) Phosphorus 0.9(LL) 2.7 - 4.5 mg/dL [facility] Comment:Critical value for t est(s):PHOS Results called to and readback by: MAGALIE Person calling: ANDREW Date: 02/01/25 Time:1606 02/01/2025 3:31 PM EST 02/01/2025 3:38 PM EST us Generic External Data Provider LAB BLOOD ORDERAB LES Final Result [facility] [address] [place] [address] [phone] * (ABNORMAL) Comprehensive Metabolic Panel (02/01/2025 3:31 PM EST) Pathologist [facility] Sodium 136 135 - 145 mmol/L [facility] Potassium 3.4 3.3 - 5.1 mmol/L [facility] Chloride 101 96 - 108 mmol/L [facility] Carbon Dioxide 21(L) 22 - 29 mmol/L [facility] Anion Gap 17 12 - 20 [facility] Urea Nitrogen (BUN) 12 9 - 16 mg/dL [facility] Creatinine, Serum 0.90 0.5 - 1.4 mg/dL [facility] Creatinine Clr Calc Pharmacy 128.0 [facility] Comment:eGFR (calculated fro m the MDRD study equation) and eCrCl(calculated from the Cockcroft-Gault equation) are based ondifferent parameters and may not yield comparable results.If eCrCl result is absurd, please check patient'sheight/weight. Estimated Glomerular Filt Rate >60 [facility] Comment:Chronic Kidney Disea se: Estimated GFR < 60 mL/min/[id number] Kidney Disease: Estimated GFR < 15 mL/min/1.73m2 Glucose 118(H) 60 - 115 mg/dL [facility] Calcium 10.1 8.4 - 10.2 mg/dL [facility] Bilirubin, Total 0.9 0.0 - 1.0 mg/dL [facility] Aspartate Amino Transferase 34 5 - 37 U/L [facility] Alanine Aminotransferase 72(H) 0 - 40 U/L [facility] Total Protein 8.2(H) 6.5 - 8.0 g/dL [facility] Albumin Level 5.4(H) 3.5 - 5.0 g/dL [facility] Alkaline Phosphatase 57 39 - 117 U/L [facility] 02/01/2025 3:31 PM EST 02/01/2025 3:38 PM EST Generic External Data Provider LAB BLOOD ORDERAB LES Final Result Performing Organization Address [facility] Co de Phone Number [facility] [address] [place] [phone] * High Sensitivity Troponin I (02/01/2025 3:31 PM EST) Pathologist [facility] TROPONIN I HIGH SENSITIVITY <2.7 <3.5 - 35.0 ng/L [facility] Comment:The Wolf high sens itivity Troponin-I results should beused in conjunction with other diagnostic information suchas ECG, clinical observations and information, and patientsymptoms to aid in the diagnosis of [place]. 02/01/2025 3:31 PM EST 02/01/2025 3:38 PM EST us Generic External Data Provider LAB BLOOD ORDERAB LES Final Result Performing Organization Address [facility]/ZIP Co de Phone Number [facility] [address] [place] [address] [phone] * (ABNORMAL) CBC auto differential (02/01/2025 3:31 PM EST) White Blood Count 12.7(H) 4.8 - 10.8 X10*3/uL [facility] Red Blood Count 5.87(H) 4.60 - 5.80 X10*6/uL [facility] Hemoglobin 17.5 14.0 - 18.0 g/dl [facility] Hematocrit 48.1 42.0 - 52.0 % [facility] Mean Corpuscular Volume 81.9 80.0 - 98.0 fL [facility] Mean Corpuscular Hemoglobin 29.8 27.0 - 33.0 pg [facility] Mean Corpuscular HGB Conc 36.4(H) 31.0 - 36.0 g/dl [facility] Red Cell Distribution Width 11.7 11.0 - 16.0 % [facility] Platelet Count 438(H) 160 - 400 X10*3/uL [facility] Mean Platelet Volume 9.6 9.4 - 12.4 fL [facility] Neutrophils Percent Auto 78.0(H) 45 - 73 % [facility] Imm Gran Pct Auto 0.3 0.0 - 0.4 % [facility] Lymphocytes Percent Auto 13.8(L) 20 - 40 % [facility] Monocytes Percent Auto 7.0 2 - 11 % [facility] Eosinophils Percent Auto 0.2 0 - 4 % [facility] Basophils Percent Auto 0.7 0 - 2 % [facility] NRBC Pct Auto 0.0 0.0 - 0.2 /100WBC [facility] Neutrophils Absolute Auto 9.9(H) 2.0 - 8.3 x10*3/uL [facility] Imm Gran Abs Auto 0.04(H) 0.00 - 0.03 X10*3/uL [facility] Lymphocytes Absolute Auto 1.8 1.2 - 4.9 X10*3/uL [facility] Monocytes Absolute Auto 0.9 0.1 - 1.2 X10*3/uL [facility] Eosinophils Absolute Auto 0.0 0.0 - 0.4 X10*3/uL [facility] Basophils Absolute Auto 0.1 0.0 - 0.2 X10*3/uL [facility] NRBC Abs Auto 0.000 0.0 - 0.012 X10*3/uL [facility] 02/01/2025 3:31 PM EST 02/01/2025 3:38 PM EST us Generic External Data Provider LAB BLOOD ORDERAB LES Final Result [facility] [address] [place] [address] [phone] documented in this encounter Visit Diagnoses Not on filedocumented in this encounter Additional Health Concerns Assessment Noted Time PHQ-9 Depression Total Score: 4 01/31/20 25 4:04 PM EST documented as of this encounter Care Teams Executive Director Sheltered Workshop Relationship Specialty Start Date End Date Roxie Aguirre ANP [address] [place] [address] PCP - General Family Medicine 12/22/20 documented as of this encounter
--- OUTSIDE RECORDS SUMMARY | 2025-02-01 16:34 | XMS_ITS | Clinical Summary ---
Author Organization [employer] Address [address] [place] [address] 7 [place] [address] Care Team Providers Care Forward Air Controller/Air Officer Name Role Phone Roxie Aguirre Primary Care Provider [phone] Allergies No known active allergies Medications cetirizine [...] Encounters Date Type Department Care Team Description 02/01/2025 Results Follow-Up [facility] [address] [place] [address] Roxie Aguirre ANP CBC auto differential, High Sensitivity Troponin I, Comprehensive Metabolic Panel, Additional followed-up results: 2 02/01/2025 Orders Only GENERIC EXTERNAL DATA DEPARTMENT Provider, Generic External Data 01/31/2025 11:15 AM EST Office Visit [address] [address] Roxie Aguirre ANP Essential hypertension (Primary Dx); Anxiety; Dietary counseling; Exercise counseling; Compression fracture of lumbar vertebra, unspecified lumbar vertebral level, sequela; Mild intermittent reactive airway disease without complication; Witnessed episode of apnea 01/31/2025 Results Follow-Up [address] [address] Roxie Aguirre ANP Basic Metabolic Panel, TSH W/Reflex to FT4, Hemoglobin A1c 01/30/2025 4:00 PM EST Office Visit [facility] [address] [place] [address] Stephanie Jerez MD Essential hypertension (Primary Dx); Depression with anxiety; Anxiety 01/30/2025 Travel 01/30/2025 [place] [address] Roxie Aguirre ANP 01/25/2025 Telephone [facility] [address] [place] [address] Roxie Aguirre ANP Nurse Triage from Last [...] Info) Description 03/13/2025 4:00 PM EST Telemedicine [facility] [address] [place], [place] [phone] Roxie Aguirre, ANP [address] [place] [address] Health Maintenance Due Date Last Done Comments [...] of 2 - PCV) 2016 COVID-19 Vaccine ( - season) 2024 01/23/2021, 12/30/2020 Influenza Vaccine [...] Procedure Name Priority Date/Time Associated Diagnosis Comments MAGNESIUM Routine 02/01/2025 3:31 PM EST PHOSPHATE ( PHOSPHORUS) Routine 02/01/2025 3:31 PM EST COMPREHENSIVE METABOLIC PANEL Routine 02/01/2025 3:31 PM EST HIGH SENSITIVITY TROPONIN I Routine 02/01/2025 3:31 PM EST CBC WITH AUTO DIFFERENTIAL Routine 02/01/2025 3:31 PM EST VITAMIN D,25-OH,TOTAL,IA Routine 01/31/2025 1:46 PM EST Hypercalcemia HEMOGLOBIN A1C Routine 01/31/2025 1:46 PM EST Anxiety TSH W/REFLEX TO FT4 Routine 01/31/2025 1 :46 PM EST Anxiety BASIC METABOLIC PANEL Routine 01/31/2025 1:46 PM EST Essential hypertension Anxiety HIV 1/2 ANTIGEN/ANTIBODY, FOURTH GENERATION W/RFL Routine 04/06/2022 1:49 PM EST from Last 3 Months or Most Recently Relevant to Health Maintenance Results * High Sensitivity Troponin I (02/01/2025 3:31 PM EST) [facility] TROPONIN I HIGH SENSITIVITY <2.7 <3.5 - 35.0 ng/L [facility] Comment:The Wolf high sens itivity Troponin-I results should beused in conjunction with other diagnostic information suchas ECG, clinical observations and information, and patientsymptoms to aid in the diagnosis of CA. 02/01/2025 3:31 PM EST 02/01/2025 3:38 PM EST us Generic External Data Provider LAB BLOOD ORDERAB LES Final Result [facility] [address] [place] [address] [phone] * (ABNORMAL) CBC auto differential (02/01/2025 3:31 PM EST) Pathologist [facility] White Blood Count 12.7(H) 4.8 - 10.8 X10*3/uL [facility] Red Blood Count 5.87(H) 4.60 - 5.80 X10*6/uL [facility] Hemoglobin 17.5 14.0 - 18.0 g/dl [facility] Hematocrit 48.1 42.0 - 52.0 % [facility] Mean Corpuscular Volume 81.9 80.0 - 98.0 fL [facility] Mean Corpuscular Hemoglobin 29.8 27.0 - 33.0 pg [facility] Mean Corpuscular HGB Conc 36.4(H) 31.0 - 36.0 g/dl [facility] Red Cell Distribution Width 11.7 11.0 - 16.0 % [facility] Platelet Count 438(H) 160 - 400 X10*3/uL [facility] Mean Platelet Volume 9.6 9.4 - 12.4 fL [facility] Neutrophils Percent Auto 78.0(H) 45 - 73 % [facility] Imm Gran Pct Auto 0.3 0.0 - 0.4 % [facility] Lymphocytes Percent Auto 13.8(L) 20 - 40 % [facility] Monocytes Percent Auto 7.0 2 - 11 % [facility] Eosinophils Percent Auto 0.2 0 - 4 % [facility] Basophils Percent Auto 0.7 0 - 2 % [facility] NRBC Pct Auto 0.0 0.0 - 0.2 /100WBC [facility] Neutrophils Absolute Auto 9.9(H) 2.0 - 8.3 x10*3/uL [facility] Imm Gran Abs Auto 0.04(H) 0.00 - 0.03 X10*3/uL [facility] Lymphocytes Absolute Auto 1.8 1.2 - 4.9 X10*3/uL [facility] Monocytes Absolute Auto 0.9 0.1 - 1.2 X10*3/uL [facility] Eosinophils Absolute Auto 0.0 0.0 - 0.4 X10*3/uL [facility] Basophils Absolute Auto 0.1 0.0 - 0.2 X10*3/uL [facility] NRBC Abs Auto 0.000 0.0 - 0.012 X10*3/uL [facility] 02/01/2025 3:31 PM EST 02/01/2025 3:38 PM EST us Generic External Data Provider LAB BLOOD ORDERAB LES Final Result [facility] [address] [place] [address] [phone] * (ABNORMAL) Phosphate (As Phosphorus) (02/01/2025 3:31 PM EST) Pathologist [facility] Phosphorus 0.9(LL) 2.7 - 4.5 mg/dL [facility] Comment:Critical value for t est(s):PHOS Results called to and readback by: MAGALIE Person calling: ANDREW Date: 02/01/25 Time:1606 02/01/2025 3:31 PM EST 02/01/2025 3:38 PM EST Generic External Data Provider LAB BLOOD ORDERAB LES Final Result Performing Organization Address [facility] de Phone Number [facility] [address] [place] [phone] * Magnesium (02/01/2025 3:31 PM EST) [facility] Magnesium 1.8 1.6 - 2.6 mg/dL [facility] 02/01/2025 3:31 PM EST 02/01/2025 3:38 PM EST [employer] External Data Provider LAB BLOOD ORDERAB LES Final Result Performing Organization Address [facility] de Phone Number [facility] [address] [place] [phone] * (ABNORMAL) Comprehensive Metabolic Panel (02/01/2025 3:31 PM EST) Pathologist [facility] Sodium 136 135 - 145 mmol/L [facility] Potassium 3.4 3.3 - 5.1 mmol/L [facility] Chloride 101 96 - 108 mmol/L [facility] Carbon Dioxide 21(L) 22 - 29 mmol/L [facility] Anion Gap 17 12 - 20 [facility] Urea Nitrogen (BUN) 12 9 - 16 mg/dL [facility] Creatinine, Serum 0.90 0.5 - 1.4 mg/dL [facility] Creatinine Clr Calc Pharmacy 128.0 [facility] Comment:eGFR (calculated fro m the MDRD study equation) and eCrCl(calculated from the Cockcroft-Gault equation) are based ondifferent parameters and may not yield comparable results.If eCrCl result is absurd, please check patient'sheight/weight. Estimated Glomerular Filt Rate >60 [facility] Comment:Chronic Kidney Disea se: Estimated GFR < 60 mL/min/1.67g4Rdtjdb Kidney Disease: Estimated GFR < 15 mL/min/1.73m2 Glucose 118(H) 60 - 115 mg/dL [facility] Calcium 10.1 8.4 - 10.2 mg/dL [facility] Bilirubin, Total 0.9 0.0 - 1.0 mg/dL [facility] Aspartate Amino Transferase 34 5 - 37 U/L [facility] Alanine Aminotransferase 72(H) 0 - 40 U/L [facility] Total Protein 8.2(H) 6.5 - 8.0 g/dL [facility] Albumin Level 5.4(H) 3.5 - 5.0 g/dL [facility] Alkaline Phosphatase 57 39 - 117 U/L [facility] 02/01/2025 3:31 PM EST 02/01/2025 3:38 PM EST us Generic External Data Provider LAB BLOOD ORDERAB LES Final Result [facility] [address] [place] [phone] * (ABNORMAL) Vitamin D, 25-Hydroxy, Total, Immunoassay (01/31/2025 1:46 PM EST) Vitamin D 25-OH Total 27.3(L) >30 ng/mL [facility] Comment: Health Based Reference Values*< 20 ng/mL Jojdwhpke28-54 ng/mL Insufficient> 30 ng/mL Sufficient*Azul LOPEZ. N Engl J Med. 2007;357:266-280There is no well-established upper level of normal vitamin Dlevels. Some laboratories use 50 ng/mL as an upper limit ofnormal. However, toxicity is patient-dependent and may occurat any level. Careful correlation with the patient'spresentation is necessary and, if there is concern forvitamin D toxicity, treatment should be consideredirrespective of the serum level.Care must be taken in interpreting Vitamin D results fromdifferent laboratories and methodologies. Published datademonstrated that results from patients undergoinghemodialysis may show a negative bias when tested withvarious automated 25-OH vitamin D assays when compared toLC-MS/MS.When testing samples from patients whose predominant form ofVitamin D is Vitamin D2, such as patients receiving VitaminD2 supplementation, results that are subtherapeutic shouldbe confirmed with another method such as LC-MS/MS. Blood 01/31/2025 1:46 PM EST 01/31/2025 6:11 PM EST us Roxie Aguirre [facility] LAB BLOOD ORDERABLES Final Resul t Performing Organization Address [facility] Co de Phone Number [facility] [address] [place] [phone] * TSH W/Reflex to FT4 (01/31/2025 1:46 PM EST) TSH reflex Free T4 1.01 0.32 - 4.0 uIU/mL [facility] Blood Venous blood specimen / Unknown 01/31/2025 1:46 PM EST 01/31/2025 3:59 PM EST us Roxie Aguirre [facility] LAB BLOOD ORDERABLES Final Resul t Performing Organization Address [facility] Co de Phone Number [facility] [address] [place] [phone] * Hemoglobin A1c (01/31/2025 1:46 PM EST) Hemoglobin A1c 5.2 <6.0 % [facility] Comment:Hemoglobin A1C Refer ence Range Adults: 4.8 - 6.0 % Non diabetic: < 6.0 % Goal: < 7.0 %Additional Action Suggested: > 8.0 %Note: Hemoglobin A1c results are invalid for patients with abnormal amounts of HbF. Blood transfusions may impact the HbA1c concentration in the patient sample. Estimated Average Glucose 103 mg/dL [facility] Comment:eAG = Estimated ave rage glucose which is %A1C expressed asaverage glucose, using the formula of the H0B-ToqoibuWdwssqf Glucose study (ADAG), Diabetes Care, Vol.31,#8,Oct. 2007 Blood Venous blood specimen / Unknown 01/31/2025 1:46 PM EST 01/31/2025 3:59 PM EST Roxie Aguirre ANP LAB BLOOD ORDERABLES Final Resul t Performing Organization Address [facility]/ZIP Co de Phone Number [facility] [address] [place] [phone] * (ABNORMAL) Basic Metabolic Panel (01/31/2025 1:46 PM EST) Sodium 139 135 - 145 mmol/L [facility] Potassium 4.0 3.3 - 5.1 mmol/L [facility] Chloride 101 96 - 108 mmol/L [facility] Carbon Dioxide 29 22 - 29 mmol/L [facility] Anion Gap 13 12 - 20 [facility] Urea Nitrogen (BUN) 11 9 - 16 mg/dL [facility] Creatinine, Serum 0.95 0.5 - 1.4 mg/dL [facility] Estimated Glomerular Filt Rate >60 [facility] Comment:Chronic Kidney Disea se: Estimated GFR < 60 mL/min/1.52f0Eytmxd Kidney Disease: Estimated GFR < 15 mL/min/1.73m2 Glucose 96 60 - 115 mg/dL [facility] Calcium 10.3(H) 8.4 - 10.2 mg/dL [facility] Blood Venous blood specimen / Unknown 01/31/2025 1:46 PM EST 01/31/2025 3:59 PM EST Roxie Aguirre ANP LAB BLOOD ORDERABLES Final Resul t Performing Organization Address [facility]/ZIP Co de Phone Number [facility] [address] [place] [phone] * HIV-1/2 Antigen and Antibodies, Fourth Generation, with Reflexes (04/06/2022 1:49 PM EST) HIV Antigen/Antibody, 4th Generation NON-REAC TIVE NON-REAC TIVE [employer] [place] [employer] Comment: HIV-1 antigen and HIV-1/HIV-2 antibodies were [...] purpose. For additional information please refer to http://education.mobifriends/faq/JKJ077 (This link is being provided for informational/ educational purposes only.) The performance of this assay has not been clinically validated in patients less than 2 years old. 04/06/2022 1:49 PM EST 04/06/2022 1:50 PM EST [facility] LAB BLOOD ORDERABLES Final Resul t [facility] [address], [place] [address] [employer] [place] [employer] [address] [facility], ([address]) [place] [address] from Last 3 Months or Most Recently Relevant to Health Maintenance Insurance [employer] Care Teams Forward Air Controller/Air Officer Relationship Specialty Start Date End Date Roxie Aguirre ANP [address] [place] [address] PCP - General Family Medicine 12/22/20
--- OUTSIDE RECORDS SUMMARY | 2025-02-01 16:34 | XMS_ITS | Encounter Summary ---
Author Organization [employer] Address [address] [place] [address] 7 [place] [address] Care Team Providers Care Airline Lounge Receptionist Name Role Phone Timothy Roxie CAMPOS Primary Care Provider [phone] Encounter Details Date Type Department Care Team [...] Not at all 01/30/2025 4:04 PM Giselle Bañuelso [place] * Patient Health Questionnaire-9 Score Answer [...] Info) Description 03/13/2025 4:00 PM EST Telemedicine [facility] [address] [place] [address] Roxie Aguirre ANP [address] [place] [address] documented as of this encounter Visit Diagnoses Not on filedocumented in this encounter Additional Health Concerns Assessment Noted Time PHQ-9 Depression Total Score: 4 01/31/20 25 4:04 PM EST documented as of this encounter Care Teams Airline Lounge Receptionist Relationship Specialty Start Date End Date Roxie Aguirre ANP [address] [place] [address] PCP - General Family Medicine 12/22/20 documented as of this encounter
--- OUTSIDE RECORDS SUMMARY | 2025-02-01 16:34 | XMS_ITS | Encounter Summary ---
Author Organization [employer] Address [address] [place] [address] 7 [place] [address] Care Team Providers Care Pelt Shearer Name Role Phone Roxie Aguirre Primary Care Provider [phone] Encounter Details Date Type Department Care Team ([facility] Contact Info) Description 01/30/2025 Telephone [facility] [address] [place] [address] Roxie Aguirre ANP [address] [place] [address] Social History Tobacco Use Types Packs/Day Years [...] is your housing situation today? Not on christinao e 01/31/[address] you [...] caller accepted this outcome. Contact pt at [phone] documented in this encounter Plan of Treatment Upcoming Encounters Date Type Department Care Team ([facility] st Contact Info) Description 03/13/2025 4:00 PM EST Telemedicine [facility] [address] [place] [phone] Roxie Aguirre ANP [address] [place] [address] documented as of this encounter Visit Diagnoses Not on filedocumented in this encounter Additional Health Concerns Assessment Noted Time PHQ-9 Depression Total Score: 4 01/31/20 25 4:04 PM EST documented as of this encounter Care Teams Pelt Shearer Relationship Specialty Start Date End Date Roxie Aguirre ANP [address] [place] [phone] PCP - General Family Medicine 12/22/20 documented as of this encounter
--- OUTSIDE RECORDS SUMMARY | 2025-02-01 16:34 | XMS_ITS | Encounter Summary ---
Author Organization [employer] Address [address] [place] [address] 7 [place] [address] Care Team Providers Care Nutrition Helper Name Role Phone Roxie Aguirre Primary Care Provider [phone] Encounter Details Date Type Department Care Team (Latest Contact Info) Description 02/01/2025 Results Follow-Up [facility] [address] [place] [address] Roxie Aguirre ANP [address] [place] [address] CBC auto differential, High Sensitivity Troponin I, Comprehensive Metabolic Panel, Additional followed-up results: 2 Social History Tobacco Use Types Packs/Day Years [...] as of this encounter Miscellaneous Notes * Result Encounter Note - BETH Hernandez - 02/01/2025 4:18 PM EST Pt at ED documented in this encounter Plan of Treatment Upcoming Encounters Date Type Department Care Team (Late st Contact Info) Description 03/13/2025 4:00 PM EST Telemedicine [facility] [address] [place] [phone] Roxie Aguirre ANP [address] [place] [address] documented as of this encounter Visit Diagnoses Not on filedocumented in this encounter Additional Health Concerns Assessment Noted Time PHQ-9 Depression Total Score: 4 01/31/20 25 4:04 PM EST documented as of this encounter Care Teams Nutrition Helper Relationship Specialty Start Date End Date Roxie Aguirre ANP [address] [place] [phone] PCP - General Family Medicine 12/22/20 documented as of this encounter
--- OUTSIDE RECORDS SUMMARY | 2025-02-01 16:34 | XMS_ITS | Encounter Summary ---
Author Organization [employer] Address [address] [place] [address] [address] [place] [address] Care Team Providers Care Social Work Instructor Name Role Phone Roxie Aguirre Primary Care Provider [phone] Encounter Details Date Type Department Care Team ([facility] st Contact Info) Description 01/31/2025 Results Follow-Up [facility] [address] [place] [address] Roxie Aguirre ANP [address] [place] [address] Basic Metabolic Panel, TSH W/Reflex to FT4, Hemoglobin A1c Social History Tobacco Use Types Packs/Day Years [...] Result Encounter Note - BETH Hernandez - 01/31/2025 5:36 PM EST Elevated calcium, called lab to add on Vit D level. Unable to add on PTH. documented in this encounter Plan of Treatment Upcoming Encounters Date Type Department Care Team (Late st Contact Info) Description 03/13/2025 4:00 PM EST Telemedicine [facility] [address] [place] [address] Roxie Aguirre ANP [address] [place] [address] documented as of this encounter Procedures Procedure Name Priority Date/Time Associated Diagnosis Comments VITAMIN D,25-OH,TOTAL,IA Routine 01/31/2025 1:46 PM EST Hypercalcemia documented in this encounter Results * (ABNORMAL) Vitamin D, 25-Hydroxy, Total, Immunoassay (01/31/2025 1:46 PM EST) Vitamin D 25-OH Total 27.3(L) >30 ng/mL [facility] Comment: Health Based Reference Values*< 20 ng/mL [id number] ng/mL Insufficient> 30 ng/mL Sufficient*Azul LOPEZ. N [...] 1:46 PM EST 01/31/2025 6:11 PM EST Roxie CAMPOS LAB BLOOD ORDERABLES Final Resul t [facility] [address] [place] [phone] [phone] documented in this encounter Visit Diagnoses Diagnosis Hypercalcemia- Primary documented in this encounter Additional Health Concerns Assessment Noted Time PHQ-9 Depression Total Score: 4 01/31/20 25 4:04 PM EST documented as of this encounter Care Teams Social Work Instructor Relationship Specialty Start Date End Date Roxie Aguirre ANP [address] [place] [address] PCP - General Family Medicine 12/22/20 documented as of this encounter
--- OUTSIDE RECORDS SUMMARY | 2025-02-01 16:34 | XMS_ITS | Encounter Summary ---
Author Organization [email or web address] Address [address] [place] [address] Care Team Providers Care Direct Sales Professional Name Role Phone Roxie Aguirre Primary Care Provider [phone] Reason for Visit * Reason Onset Date Comments Med Refill 10/06/2022 Encounter Details Date Type Department Care Team ([facility] st Contact Info) Description 10/06/2022 Telephone [facility] [address] [place] [address] Roxie Aguirre ANP [address] [place] [address] Med Refill Social History Tobacco Use Types [...] Info) Description 03/13/2025 4:00 PM EST Telemedicine [facility] [address] [place] [address] Roxie Aguirre ANP [address] [place] [address] documented as of this encounter Visit Diagnoses Not on filedocumented in this encounter Care Teams Direct Sales Professional Relationship Specialty Start Date End Date Roxie Aguirre ANP [address] [place] [address] PCP - General Family Medicine 12/22/20 documented as of this encounter
[2025-02-01] MEDS: Potassium Phosphate/NS 15 MMOL/250 ML PLAST..BAG 62.5 MMOL IV (17:54)
--- NOTE | 2025-02-01 18:02 | ED_ITS ---
HPI - Dizziness General Chief Complaint: Dizziness Stated Complaint: dizzy,upper extremity tingling Time Seen by Provider: 02/01/25 15:54 Source: patient, EMS, RN notes reviewed and old records reviewed Mode of arrival: EMS History of Present Illness ED Provider: Bri Vang PA-C HPI Narrative: 29-year-old male with a past medical history migraines, anxiety, HTN, asthma, presenting to the ED via EMS complaining of anxiety attack with SOB, lightheadedness, diffuse body tingling, & headache [employer] while he was at [facility] for workman's comp clearance. States he became very anxious while waiting in the room for over an hour. Reports symptomatic improvement at present although persistent fatigue/lethargy. Per patient he was recently started on new BP medication, HCTZ, & BP has been high at home. Denies CP/SOB at present, headache, vision change/loss, focal weakness, abdominal pain, nausea, vomiting, diarrhea/recent illness. Also admits to being started on Lexapro recently - started a few days ago Related Data Previous Rx's ?Medication ?Instructions ?Recorded hydrochlorothiazide 12.5 mg tablet 12.5 mg PO DAILY #1 4 tabs 10/15/20 hydrocortisone 2.5 % topical cream 1 appl topical TID PRN itching #30 10/15/20 grams lorazepam 1 mg tablet (Ativan) 1 mg PO BEDTIME PRN anx iety #10 10/17/20 tabs hydrochlorothiazide 12.5 mg capsule 12.5 mg PO DAILY # 20 caps 10/29/20 hydroxyzine HCl 25 mg tablet 25 mg PO QID PRN anxiety #28 tabs 10/29/20 oseltamivir 75 mg capsule (Tamiflu) 75 mg PO DAILY 5 d ays #5 caps 05/08/23 Allergies Allergy/AdvReac Type Severity Reaction Status Date / Time No Known Allergies Allergy Verified 02/01/25 15:06 Review of Systems 2 Review of Systems: Yes all other systems are reviewed and are negative Constitutional: Constitutional: Reports as per HPI Neurologic: Denies Abnormal speech present [facility] Past Medical History Attestation statement: The following information was validated with the patient. Source: old records reviewed Medical History Migraine Anxiety Hypertension Asthma Social History Social History Patient Tobacco Use Status: Never used Tobacco Advance Directives: No Advance Directives Information Provided: No Do you have a plan to hurt others: No Plan Physical Exam 2 Vital Signs: Vital Signs: Last Vital Signs Temp 98.1 F 02/01/25 15:04 Pulse 105 H 02/01/25 17:26 Resp 15 02/01/25 17:26 BP 130/93 H 02/01/25 17:26 Pulse Ox 98 02/01/25 17:26 O2 Del Method Room Air 02/01/25 17:26 BMI result Body Mass Index 29.1 Const: General: cooperative, healthy appearing and no acute distress O rientation/consciousness: patient oriented x3 Limitations: no limitations HEENT: Head: Yes normal to inspection and Yes atraumatic Ears: hearing grossly normal bilaterally General nose exam: Normal external nose present Face and sinus: Yes normal facial exam Eyes: General: appearance normal, both eyes and all related structures P upils: Equal, round and reactive pupils present EOM: EOMs intact bilaterally Neck: Neck: Yes normal visual inspection and Yes no meningeal signs Resp: Effort & Inspection: normal respiratory effort and no respiratory distress Auscultation: clear to auscultation bilaterally Cardio: Rate: regular rate Heart sounds: S1 normal heart sound present and S2 normal heart sound present GI: Inspection: Yes normal to inspection Palpation (GI): Soft to palpation, nontender, no guarding and not rigid : General: Yes no CVA tenderness Back/Spine/Pelvis: Back: no CVA tenderness Skin: Rashes: no rashes Wounds: no wounds Neuro: General: patient oriented x3, tone normal, moves all extremities, no meningeal signs, no focal motor deficits and CN's II-XI intact bilaterally C ranial nerves: Yes CN's II-XII intact bilaterally, Yes Equal, round and reactive pupils present and Yes Bilaterally intact EOM present Cognition (Neuro): n ormal cognition Speech: No Abnormal speech present Motor exam (neuro): 5/5 motor strength present throughout Extrem: General: Yes normal to inspection Course Course Course Narrative: -1808--labs notable for hypophosphatemia at 0.9 > will replete with IV phosphorus > could be side effects from recently started new medications of Lexapro and HCTZ. Plan to admit for further management. -orthostatic vital signs negative Medications Administered Generic Name Dose Route Start Last Admin Trade Name Freq PRN Reason Stop Dose Admin Potassium Phosphate 15 mmol in 250 mls @ 62.5 mls/hr 02/01/25 16:36 02/01/25 17:54 Kphos IV 02/01/25 20:35 62.5 mls/hr ONCE ONE Administration Sodium Chloride 1,000 mls @ 999 mls/hr 02/01/25 17:30 02/01/25 17:34 Ns IV 02/01/25 18:30 999 mls/hr .Q1H1M QIANA Administration Discontinued Medications Generic Name Dose Route Start Last Admin Trade Name Freq PRN Reason Stop Dose Admin Lorazepam 0.5 mg 02/01/25 17:25 02/01/25 17:34 Lorazepam 0.5 Mg Tablet PO 02/01/25 17:26 0.5 mg ONCE ONE Administration Medical Decision Making Medical Decision Making [facility] Narrative: 29-year-old male with a past medical history migraines, anxiety, HTN, asthma, presenting to the ED via EMS complaining of anxiety attack with SOB, diffuse body tingling, & headache [employer] while he was at [employer] for workman's comp clearance. On exam initially hypertensive and tachycardic likely from anxiety, NAD/nontoxic appearing, no focal neuro deficits. Abdomen is soft and nontender, lungs CTA. Concern for anxiety reaction vs complicated migraine headache vs HTN urgency/emergency vs metabolic abnormalities. Lower suspicion for acute ACS, CVA/TIA, SAH or dissection Plan: EKG, labs, IVF, anxiolytic, re-evaluate Please refer to course for remaining clinical decision making, interpretation of labs/imaging results, and discussions with consultants and/or family members. Differential Diagnosis Differential Diagnoses: The differential diagnosis associated with the presentation includes As above Admission/Observation Consideration of admission/observation: Escalation of care including admission/observation considered Consult Healthcare Provider Management of the patient was discussed with: Hospitalist Lab Data [facility] Lab Attestation statement: I reviewed the patient's lab results. 02/01/25 15:31 02/01/25 15:31 Labs: Lab Results 02/01/25 Range/Units 15:31 WBC 12.7 H (4.8-10.8) X10*3/uL RBC 5.87 H (4.60-5.80) X10*6/uL Hgb 17.5 (14.0-18.0) g/dl Hct 48.1 (42.0-52.0) % MCV 81.9 (80.0-98.0) fL MCH 29.8 (27.0-33.0) pg MCHC 36.4 H (31.0-36.0) g/dl RDW 11.7 (11.0-16.0) % Plt Count 438 H (160-400) X10*3/uL MPV 9.6 (9.4-12.4) fL Immature Gran % (Auto) 0.3 (0.0-0.4) % Neut % (Auto) 78.0 H (45-73) % Lymph % (Auto) 13.8 L (20-40) % [place] % (Auto) 7.0 (2-11) % Eos % (Auto) 0.2 (0-4) % Baso % (Auto) 0.7 (0-2) % Lymph # (Auto) 1.8 (1.2-4.9) X10*3/uL [place] # (Auto) 0.9 (0.1-1.2) X10*3/uL Eos # (Auto) 0.0 (0.0-0.4) X10*3/uL Baso # (Auto) 0.1 (0.0-0.2) X10*3/uL Abs Immat Gran (auto) 0.04 H (0.00-0.03) X10*3/uL Absolute Neuts (auto) 9.9 H (2.0-8.3) x10*3/uL Absolute Nucleated RBC 0.000 (0.0-0.012) X10*3/uL Nucleated RBC % (auto) 0.0 (0.0-0.2) /100WBC Sodium 136 (135-145) mmol/L Potassium 3.4 (3.3-5.1) mmol/L Chloride 101 (96-108) mmol/L Carbon Dioxide 21 L (22-29) mmol/L Anion Gap 17 (12-20) BUN 12 (9-16) mg/dL Creatinine 0.90 (0.5-1.4) mg/dL Estim Creat Clear Calc 128.0 Estimated GFR > 60 Random Glucose 118 H (60-115) mg/dL Calcium 10.1 (8.4-10.2) mg/dL Phosphorus 0.9 L* (2.7-4.5) mg/dL Magnesium 1.8 (1.6-2.6) mg/dL Total Bilirubin 0.9 (0.0-1.0) mg/dL AST 34 (5-37) U/L ALT 72 H (0-40) U/L Alkaline Phosphatase 57 (39-117) U/L Troponin I High Sens < 2.7 (<3.5-35.0) ng/L Total Protein 8.2 H (6.5-8.0) g/dL Albumin 5.4 H (3.5-5.0) g/dL Independent Interpretation I performed an independent interpretation of an: EKG (My interpretation: EKG sinus tachycardia rate of 113. No STEMI. WI interval 146. No significant change when compared to prior. ) Radiology Impression Discussion of test interpretation with radiology: I have reviewed the radiologist's reading. Independent Historian Clinical information obtained from an independent historian. History obtained from or confirmed by: EMS External Record Review External record reviewed: Inpatient record, Office record, Outpatient record, Prior outpatient labs, Prior outpatient radiology, Primary care record and Outside ED record Tests considered The following testing was considered but not selected: As above Prescription Management I considered prescription management with: Other Social Determinants Patient?s care significantly limited by Social Determinants of Health including: Other Social Determinant of Health Critical Care Time Critical Care Time Critical Care Time: Yes Total Critical Care Time: 40 Attestation: I have personally provided critical care time exclusive of time spent on separately billable procedures. Time includes review of lab data, radiology results, discussion with consultants, and monitoring for potential decompensation. Intervention performed as documented. Discharge Plan Discharge Clinical Impression: Hypophosphatemia, Lightheadedness Patient Disposition: Admitted As Inpatient Print Language: Canadian
--- NOTE | 2025-02-01 18:46 | PM.IMHP ---
History of Present Illness Date of Service: 02/01/25 Chief Complaint: weakness 29M PMH HTN no longer on meds due to normal bp, anxiety, presented with weakness. Patient states that 2 weeks ago he had a head injury at work ([employer]), denies loss of consciousness but had headaches was on light duty and doing physical therapy for 2 weeks, noted to have elevated blood pressures so was started on hydrochlorothiazide. On day of presentation patient came home from work severely weak noted to have phosphorus of 0.9, mild hypokalemia of 3.4 Review of Systems Review of Systems: Yes all other systems are reviewed and are negative [facility] Medical History Migraine Anxiety Hypertension Asthma Social History Patient Tobacco Use Status: Never used Tobacco Advance Directives: No Advance Directives Information Provided: No Do you have a plan to hurt others: No Plan Meds Allergies Allergy/AdvReac Type Severity Reaction Status Date / Time No Known Allergies Allergy Verified 02/01/25 15:06 Active Medications: Current Medications Acetaminophen (Acetaminophen 325 Mg Tablet) 650 mg PO Q6H PRN PRN Reason: Pain, Mild 1-3,fever,headache Calcium Carbonate (Calcium Carbonate 750 Mg Tab.Chew) 750 mg PO Q4H PRN PRN Reason: Heartburn Enoxaparin Sodium (Enoxaparin Sodium 40 Mg/0.4 Ml Syringe) 40 mg SUBCUT Q24H [facility] Potassium Phosphate (Kphos) 15 mmol in 250 mls @ 62.5 mls/hr IV ONCE ONE Stop: 02/01/25 20:35 Last Admin: 02/01/25 17:54 Dose: 62.5 mls/hr Magnesium Hydroxide (Milk Of Magnesia 30 Ml Oral.Susp) 30 ml PO DAILY PRN PRN Reason: Constipation Melatonin (Melatonin 3 Mg Tablet) 6 mg PO BEDTIME PRN PRN Reason: Insomnia Sodium Chloride (0.9 % Sodium Chloride Flush 3 Ml Syringe) 3 ml IVFLUSH QSHIFT [facility] Physical Exam Vital Signs and Narrative: Vital Signs: Last Vital Signs Temp 98.1 F 02/01/25 15:04 Pulse 105 H 02/01/25 18:40 Resp 16 02/01/25 18:40 BP 127/89 02/01/25 18:40 Pulse Ox 95 02/01/25 18:40 O2 Del Method Room Air 02/01/25 18:40 BMI result Body Mass Index 29.1 General: AO X 3, no acute distress Resp: CTA bilateral, no accessory muscles used CVS: S1,S2,RRR GI: soft, non tender, non distended Neuro: motor grossly weak, alert Psych: appropriate affect, appropriate insight Results Labs 02/01/25 15:31 02/01/25 15:31 Labs: Laboratory Results - last 24 hr 02/01/25 15:31 MCV 81.9 MCH 29.8 MCHC 36.4 H RDW 11.7 Plt Count 438 H MPV 9.6 Immature Gran % (Auto) 0.3 Neut % (Auto) 78.0 H Lymph % (Auto) 13.8 L [place] % (Auto) 7.0 Eos % (Auto) 0.2 Baso % (Auto) 0.7 Lymph # (Auto) 1.8 [place] # (Auto) 0.9 Eos # (Auto) 0.0 Baso # (Auto) 0.1 Abs Immat Gran (auto) 0.04 H Absolute Neuts (auto) 9.9 H Absolute Nucleated RBC 0.000 Nucleated RBC % (auto) 0.0 Anion Gap 17 Estim Creat Clear Calc 128.0 Estimated GFR > 60 Random Glucose 118 H Calcium 10.1 Phosphorus 0.9 L* Magnesium 1.8 Total Bilirubin 0.9 AST 34 ALT 72 H Alkaline Phosphatase 57 Troponin I High Sens < 2.7 Total Protein 8.2 H Albumin 5.4 H Assessment and Plan (1) Hypophosphatemia: Status: Acute Plan 29M PMH HTN no longer on meds due to normal bp, anxiety, presented with weakness Acute severe symptomatic hypophosphatemia Differential includes renal wasting such as RTA, refeeding syndrome patient did mentioned that he had poor appetite that has somewhat improved, hyperaldosteronism replace and monitor check abg, urine lytes, renin/chay, nephro eval anxiety lexapro htn hold hctz, monitor dvt prophylaxis - lovenox full code Given the degree of hypophosphatemia is likely require at least 2 midnights inpatient to replace Quality Stroke Does the patient have a stroke diagnosis?: No VTE Prior VTE?: No VTE Risk Level:: Medical - moderate - high VTE Device Contraindication: Treatment Not Indicated VTE Drug Contraindication: N/A - Med Ordered
[2025-02-01 18:51] LABS: Appearance Urine Clear; Glucose Urine UA Negative (Negative); PH 7.5 (5.0-9.0); Specific Gravity - Urine 1.010 (1.005-1.025)
[2025-02-01 19:01] LABS: ABG HCO3 24 mmol/L (22-26); ABG O2 % Saturation 98.0 %
[2025-02-01 19:07] LABS: Troponin-I High Sensitivity < 2.7 ng/L (<3.5-35.0)
--- NOTE | 2025-02-01 19:07 | HO.NURTONUR ---
Addendum entered by Maria Esther Florian RN 02/02/25 11:45: Assumed care of patient at 0700, patient VSS, alert and oriented, no changed in plan. patient blood pressure is stable at this time. Original Note: Pt biba from home for hypertension. Pt reports 2wks ago had a head injury at work, denies LOC but has had intermittent headaches ever since. Noted to be hypertensive so pt was started on HCTZ by PCP. Today pt came in d/t GBW, generalized tingling, hypertension and anxiety. Pt arrived with BP 180/120. HR 130s-140s ST. Labs remarkable for hypophosphemia and hypokalemia. Phos currently being replaced. 1L fluid bolus given. BP and HR improved. BP 130s/90s. HR low 100s ST. Afebrile. Room air- sats 96-99%. Clear BBS. Regular diet ordered. 20gRFA. Family at bedside.
--- NOTE | 2025-02-01 19:19 | PC.NURSE ---
Assumed care of patient at 1900. Pt a&Ox3, resting on stretcher. Respirations equal and unlabored. Pt denies pain, states just feel tired but feeling more relaxed . Pt on tele. KPhos currently infusing as ordered. Call medina within reach.
--- NOTE | 2025-02-01 19:48 | PHA.MEDREC ---
Addendum entered by Darrell Worley RPh 02/01/25 20:20: reviewed by [facility] Original Note: Pharmacy Consult ? Medication Reconciliation Pharmacy has completed the medication reconciliation. Patient was able to name all of his medications. Patient had HCTZ 25 mg today. All other medications was last taken yesterday.
[2025-02-01] MEDS: Sodium,Potassium Phosphates POWD.PACK 2 PACKET PO (21:14)
[2025-02-01 23:18] LABS: ABG Refer to POC result
[2025-02-02] VITALS (9 sets, daily range): BP systolic 117–148; BP diastolic 74–95; PULSE 77–101; RESP 12–20; TEMP 36.3–37.3; O2SAT 95–99
[2025-02-02 04:12] LABS: Hematocrit 46.1 % (42.0-52.0); Hemoglobin 16.2 g/dl (14.0-18.0); Mean Corpuscular HGB Conc 35.1 g/dl (31.0-36.0); Mean Corpuscular Hemoglobin 29.8 pg (27.0-33.0); Mean Corpuscular Volume 84.7 fL (80.0-98.0); NRBC Abs Auto 0.000 X10*3/uL (0.0-0.012); NRBC Pct Auto 0.0 /100WBC (0.0-0.2); Platelet Count 358 X10*3/uL (160-400); Red Blood Count 5.44 X10*6/uL (4.60-5.80); White Blood Count 9.6 X10*3/uL (4.8-10.8)
[2025-02-02 04:28] LABS: Alanine Aminotransferase 66 U/L (0-40); Albumin Level 4.8 g/dL (3.5-5.0); Alkaline Phosphatase 52 U/L (39-117); Anion Gap 11 (12-20); Aspartate Amino Transferase 44 U/L (5-37); Blood Urea Nitrogen 11 mg/dL (9-16); Calcium 9.3 mg/dL (8.4-10.2); Carbon Dioxide 29 mmol/L (22-29); Chloride 104 mmol/L (96-108); Creatinine Clr Calc Pharmacy 102.8; Estimated Glomerular Filt Rate > 60; Magnesium 2.2 mg/dL (1.6-2.6); Potassium 4.7 mmol/L (3.3-5.1); Sodium 139 mmol/L (135-145); Total Protein 7.2 g/dL (6.5-8.0)
[2025-02-02 04:33] LABS: Parathyroid Hormone Intact 134.0 pg/mL (8.7-77.1)
[2025-02-02] MEDS: Sodium,Potassium Phosphates POWD.PACK 2 PACKET PO (08:49)
--- NOTE | 2025-02-02 09:40 | HO.PM.IMPN ---
Subjective Subjective Date of Service: 02/02/25 Interval History: still weak Physical Exam Exam: Exam: General: AO X 3, no acute distress Resp: CTA bilateral, no accessory muscles used CVS: S1,S2,RRR GI: soft, non tender, non distended Neuro: motor grossly intact, alert Psych: appropriate affect, appropriate insight Vital Signs: Vital Signs: Last Vital Signs Temp 99.1 F 02/02/25 08:00 Pulse 101 H 02/02/25 08:00 Resp 20 02/02/25 08:00 BP 139/90 H 02/02/25 08:00 Pulse Ox 99 02/02/25 08:00 O2 Del Method Room Air 02/02/25 08:00 BMI result Body Mass Index 29.1 Objective Data Active Medications Acetaminophen (Acetaminophen 325 Mg Tablet) 650 mg PO Q6H PRN PRN Reason: Pain, Mild 1-3,fever,headache Last Admin: 02/02/25 08:49 Dose: 650 mg Documented By: YAMINI Calcium Carbonate (Calcium Carbonate 750 Mg Tab.Chew) 750 mg PO Q4H PRN PRN Reason: Heartburn Enoxaparin Sodium (Enoxaparin Sodium 40 Mg/0.4 Ml Syringe) 40 mg SUBCUT Q24H [facility] Last Admin: 02/02/25 08:52 Dose: Not Given Documented By: YAMINI Non-Admin Reason: See Note Ergocalciferol (Ergocalciferol (Vitamin D2) 1,250 Mcg Capsule) 1,250 mcg PO Phillips@0900 [facility] Escitalopram Oxalate (Escitalopram Oxalate 5 Mg Tablet) 5 mg PO BEDTIME [facility] Last Admin: 02/01/25 21:15 Dose: 5 mg Documented By: FLORENCIO Magnesium Hydroxide (Milk Of Magnesia 30 Ml Oral.Susp) 30 ml PO DAILY PRN PRN Reason: Constipation Melatonin (Melatonin 3 Mg Tablet) 6 mg PO BEDTIME PRN PRN Reason: Insomnia Potassium Phos/Sodium Phos (Sodium,Potassium Phosphates Powd.Pack) 2 packet PO QID [facility] Last Admin: 02/02/25 08:49 Dose: 2 packet Documented By: YAMINI Sodium Chloride (0.9 % Sodium Chloride Flush 3 Ml Syringe) 3 ml IVFLUSH QSHIFT [facility] Last Admin: 02/02/25 08:55 Dose: Not Given Documented By: HO.PROVENC Non-Admin Reason: See Note Labs 02/02/25 03:45 02/02/25 03:45 Labs: Laboratory Results - last 24 hr 02/01/25 02/01/25 02/01/25 15:31 18:36 18:56 MCV 81.9 MCH 29.8 MCHC 36.4 H RDW 11.7 Plt Count 438 H MPV 9.6 Immature Gran % (Auto) 0.3 Neut % (Auto) 78.0 H Lymph % (Auto) 13.8 L [place] % (Auto) 7.0 Eos % (Auto) 0.2 Baso % (Auto) 0.7 Lymph # (Auto) 1.8 [place] # (Auto) 0.9 Eos # (Auto) 0.0 Baso # (Auto) 0.1 Abs Immat Gran (auto) 0.04 H Absolute Neuts (auto) 9.9 H Absolute Nucleated RBC 0.000 Nucleated RBC % (auto) 0.0 O2 Saturation 98.0 ABG pH at Pt Temp 7.43 ABG pCO2 at Pt Temp 35 ABG pO2 at Pt Temp 87 ABG HCO3 24 ABG Base Excess (Actual) 0.3 Anion Gap 17 Estim Creat Clear Calc 128.0 Estimated GFR > 60 Random Glucose 118 H Calcium 10.1 Phosphorus 0.9 L* Magnesium 1.8 Total Bilirubin 0.9 Direct Bilirubin AST 34 ALT 72 H Alkaline Phosphatase 57 Troponin I High Sens < 2.7 < 2.7 Total Protein 8.2 H Albumin 5.4 H PTH Intact Urine Color Yellow Urine Appearance Clear Urine pH 7.5 Ur Specific [place] 1.010 Urine Protein Negative Urine Glucose (UA) Negative Urine Ketones 80 Urine Blood Negative Urine Nitrite Negative Ur Leukocyte Esterase Negative Ur Random Sodium 99.0 Ur Random Potassium 40.3 Ur Random Chloride 95.0 Ur Random Phosphorus 14.2 Urine Creatinine 84.02 02/02/25 03:45 MCV 84.7 MCH 29.8 MCHC 35.1 RDW 12.2 Plt Count 358 MPV 9.3 L Immature Gran % (Auto) Neut % (Auto) Lymph % (Auto) [place] % (Auto) Eos % (Auto) Baso % (Auto) Lymph # (Auto) [place] # (Auto) Eos # (Auto) Baso # (Auto) Abs Immat Gran (auto) Absolute Neuts (auto) Absolute Nucleated RBC 0.000 Nucleated RBC % (auto) 0.0 O2 Saturation ABG pH at Pt Temp ABG pCO2 at Pt Temp ABG pO2 at Pt Temp ABG HCO3 ABG Base Excess (Actual) Anion Gap 11 L Estim Creat Clear Calc 102.8 Estimated GFR > 60 Random Glucose 100 Calcium 9.3 D Phosphorus 3.8 Magnesium 2.2 Total Bilirubin 0.8 Direct Bilirubin 0.3 AST 44 H ALT 66 H Alkaline Phosphatase 52 Troponin I High Sens Total Protein 7.2 Albumin 4.8 PTH Intact 134.0 H Urine Color Urine Appearance Urine pH Ur Specific [place] Urine Protein Urine Glucose (UA) Urine Ketones Urine Blood Urine Nitrite Ur Leukocyte Esterase Ur Random Sodium Ur Random Potassium Ur Random Chloride Ur Random Phosphorus Urine Creatinine Assessment and Plan (1) Hypophosphatemia: Status: Acute Plan 29M PMH HTN no longer on meds due to normal bp, anxiety, presented with weakness Acute severe symptomatic hypophosphatemia ?due to primary hyperparathyroidism nephro eval conitnue phosphorus supplement anxiety lexapro htn hold hctz, monitor dvt prophylaxis - lovenox full code reason for continued hospitalization:nephro eval Quality Stroke Does the patient have a stroke diagnosis?: No VTE Prior VTE?: No VTE Risk Level:: Medical - moderate - high VTE Device Contraindication: Treatment Not Indicated VTE Drug Contraindication: N/A - Med Ordered
--- NOTE | 2025-02-02 09:45 | PC.NURSE ---
assumed care of patient at 0700, patient is awake and alert, vss. medicated per MAY. patient stated he had a headache, requested tylenol. pain is now 3/10.
--- NOTE | 2025-02-02 12:22 | PC.NURSE ---
patient stated he had pain in the right arm where his IV is, noted to be slightly red and swollen, note to be infiltrated. secondary IV placed in the LAC#20. other line removed by this RN
--- NOTE | 2025-02-02 13:22 | MHC.CM.PN ---
Pt. lives with his family, his 2 young children were in the room with him. He does not use home health services or DME, he can arrange a ride home at [place], DCP: home, self care. PCP confirmed: Roxie Aguirre NP. CM to follow for DC needs.
[2025-02-02] MEDS: 0.9 % Sodium Chloride Flush 3 ML SYRINGE IVFLUSH ×3 (16:17→20:22)
--- NOTE | 2025-02-02 18:09 | PM.EVENT ---
Event Note Date of Service: 02/02/25 Event Note: Chart reviewed Discussed with 29 yr old man with severe hypophosphatemia Nor mal renal function GI vs urinary losses vs poor po intake Replace Phos Recheck phos tomorrow REcheck PTH in 3 days Full consult to follow Time Spent With Patient Time: Total time managing care of this patient today ____ minutes.
[2025-02-03 04:00] VITALS: BP 137/88; PULSE 84; RESP 18; TEMP 36.4; O2SAT 99
[2025-02-03 06:51] VITALS: BP 147/64; PULSE 81; RESP 16; TEMP 36.4; O2SAT 99
[2025-02-03 07:22] LABS: Hematocrit 46.9 % (42.0-52.0); Hemoglobin 16.6 g/dl (14.0-18.0); Mean Corpuscular HGB Conc 35.4 g/dl (31.0-36.0); Mean Corpuscular Hemoglobin 30.0 pg (27.0-33.0); Mean Corpuscular Volume 84.8 fL (80.0-98.0); NRBC Abs Auto 0.000 X10*3/uL (0.0-0.012); NRBC Pct Auto 0.0 /100WBC (0.0-0.2); Platelet Count 357 X10*3/uL (160-400); Red Blood Count 5.53 X10*6/uL (4.60-5.80); White Blood Count 8.0 X10*3/uL (4.8-10.8)
[2025-02-03 07:47] LABS: Anion Gap 14 (12-20); Blood Urea Nitrogen 13 mg/dL (9-16); Calcium 9.4 mg/dL (8.4-10.2); Carbon Dioxide 25 mmol/L (22-29); Chloride 105 mmol/L (96-108); Creatinine Clr Calc Pharmacy 120.0; Estimated Glomerular Filt Rate > 60; Potassium 4.0 mmol/L (3.3-5.1); Sodium 140 mmol/L (135-145)
[2025-02-03] MEDS: Sodium,Potassium Phosphates POWD.PACK 2 PACKET PO (08:31)
[2025-02-03] MEDS: 0.9 % Sodium Chloride Flush 3 ML SYRINGE IVFLUSH (08:37)
--- NOTE | 2025-02-03 11:08 | PM.DS ---
DS: Providers Provider Date of Service: 02/03/25 Date of admission: 02/01/25 18:41 Date of discharge: 02/03/25 Primary care physician: Roxie Aguirre NP Consults: 02/01/25 18:42 Consult to Nephrology Routine Consulting Provider: [facility] Reason for consultation: hypophosphatemia DS: Diagnosis Discharge Diagnosis (1) Hypophosphatemia: Status: Acute DS: Summary Hospital Course Hospital Course: from initial hpi: 29M PMH HTN no longer on meds due to normal bp, anxiety, presented with weakness. Patient states that 2 weeks ago he had a head injury at work ([employer]), denies loss of consciousness but had headaches was on light duty and doing physical therapy for 2 weeks, noted to have elevated blood pressures so was started on hydrochlorothiazide. On day of presentation patient came home from work severely weak noted to have phosphorus of 0.9, mild hypokalemia of 3.4 hospital course: Patient was admitted for acute severe symptomatic hypophosphatemia. Labs were consistent with extrarenal losses most likely due to ongoing diarrhea. Was given phosphorus supplement and improved. Noted to have elevated PTH but this is likely secondary to low phosphorus and should be repeated as outpatient. Patient will follow up with Nephrology. For diarrhea stool studies should be followed up, if C diff negative can use Imodium. If continues should follow up with Gastroenterology. For anxiety was continued on Lexapro. For hypertension hydrochlorothiazide held due to electrolyte abnormalities, we will start on amlodipine. Time Attestation Discharge Coordination Time (in mins): 32 Quality: Safe Use of Opioids Does Pt have an Active Cancer Diagnosis on the Problem List?: No Quality: Stroke Does the patient have a stroke diagnosis?: No Physical Exam Exam: Exam: General: AO X 3, no acute distress Resp: CTA bilateral, no accessory muscles used CVS: S1,S2,RRR GI: soft, non tender, non distended Neuro: motor grossly intact, alert Psych: appropriate affect, appropriate insight Vital Signs: Vital Signs: Last Vital Signs Temp 97.5 F 02/03/25 06:51 Pulse 81 02/03/25 06:51 Resp 16 02/03/25 06:51 BP 147/64 H 02/03/25 06:51 Pulse Ox 99 02/03/25 06:51 O2 Del Method Room Air 02/03/25 06:51 BMI result Body Mass Index 29.1 DS: Data Data Completed and Pending Labs on day of discharge: Laboratory Results - last 24 hr 02/03/25 06:51 WBC 8.0 RBC 5.53 Hgb 16.6 Hct 46.9 MCV 84.8 MCH 30.0 MCHC 35.4 RDW 11.9 Plt Count 357 MPV 9.5 Absolute Nucleated RBC 0.000 Nucleated RBC % (auto) 0.0 Sodium 140 Potassium 4.0 Chloride 105 Carbon Dioxide 25 Anion Gap 14 BUN 13 Creatinine 0.96 Estim Creat Clear Calc 120.0 Estimated GFR > 60 Random Glucose 105 Calcium 9.4 Phosphorus 2.3 L Discharge Plan Discharge Anticipated Discharge Date/Time: 02/03/25 11:04 Patient Disposition: Home, Self-Care Discharge Diagnosis: hypophos Referrals: Medardo Rahman MD [Physician, Nephrology] - 1 Week Roxie Aguirre NP [Primary Care Provider, Internal Medicine] - 1 Week Discharge Medications: New potassium, sodium phosphates [Phos-NaK] 280-160-250 mg Powder In Packet 2 packet PO DAILY 14 Days Qty: 100 0RF ergocalciferol (vitamin D2) [Vitamin D2] 1,250 mcg (50,000 unit) Capsule 1,250 mcg PO Phillips@0900 Qty: 8 0RF amlodipine 5 mg tablet 5 mg PO DAILY Qty: 90 0RF Continued cetirizine 10 mg tablet 10 mg PO QAM escitalopram oxalate 5 mg tablet 5 mg PO DAILY Discontinued hydrochlorothiazide 25 mg tablet 25 mg PO DAILY Discharge Orders: Discharge Order (Routine); Ordered 02/03/25 Ordered By: Seymour Hall Diet: Advance to usual diet Activity on Discharge: As tolerated Stand Alone Forms: Patient Portal Discharge page Print Language: German Other Ambulatory Orders: Basic Metabolic Panel Fasting (Routine) Timeframe: 1 Week Facility: [facility] - Location: Laboratory Ordered By: Seymour Hall Phosphorus (Routine) Timeframe: 1 Week Facility: [facility] - Location: Laboratory Ordered By: Seymour Hall Parathyroid Hormone Intact (Routine) Timeframe: 1 Week Facility: [facility] - Location: Laboratory Ordered By: Seymour Hall Care Plan Goals: Recovery Health Concerns: Diarrhea and hypophosphatemia Plan of Treatment: Follow up stool studies, follow up with Nephrology and lab work start taking vitamin-D, continue with daily phosphorus supplement until diarrhea resolves Assessment: See above
--- NOTE | 2025-02-03 11:18 | MHC.CM.PN ---
PT CLEARED TO DC HOME TODAY WITH NO SERVICES PT TO ARRANGE TRANSPORT
[2025-02-04 16:44] LABS: Calcium, Random Urine 2.0 mg/dL
== END 2025-02-03 13:57 | disposition home or self-care (01) | DRG 642 ==
LOC: HO.ED 18:12 → HO.EDOVER 19:23 → HO.S3 02-02 09:42 → HO.EDOVER 02-02 09:44 → HO.S3 02-02 11:09
PROVIDERS: Physician Assistant; Admitting Provider Internal Medicine; Emergency Provider Emergency Medicine; PCP Nurse Practitioner Primary Care; Visit Provider Internal Medicine
DX: E83.39 Other disorders of phosphorus metabolism (principal); I10 Essential (primary) hypertension; F41.9 Anxiety disorder, unspecified; R19.7 Diarrhea, unspecified; Z79.899 Other long term (current) drug therapy
CPT/HCPCS: 36415; 80048; 80053; 80076; 81003; 82088; 82310; 82436; 82570; 82803; 83735; 83970; 84100; 84105; 84133; 84300; 84484; 85025; 85027; 93005; 99285; J1650; J2405

== ENCOUNTER → 2025-02-01 15:04 | Outpatient (BNV) | payer OTHER, SELFPAY | PROVIDERS: Admitting Provider Internal Medicine; Emergency Provider Emergency Medicine; PCP Nurse Practitioner Primary Care; Visit Provider Internal Medicine Cardiovascular Disease | DX: R00.0 Tachycardia, unspecified (principal) | CPT/HCPCS: 93010 ==

== ENCOUNTER → 2025-02-01 15:16 | Outpatient (BNV) | payer OTHER, SELFPAY | PROVIDERS: Emergency Provider Emergency Medicine; PCP Nurse Practitioner Primary Care; Visit Provider Internal Medicine | DX: E83.39 Other disorders of phosphorus metabolism (principal) | CPT/HCPCS: 99233 ==

== ENCOUNTER 2025-02-06 11:22 | Outpatient (REF) | payer OTHER, SELFPAY ==
--- OUTSIDE RECORDS SUMMARY | 2025-02-06 10:00 | XMS_ITS | Encounter Summary ---
Author Organization [employer] Address [address] [place] [address] 7 [place] [address] Care Team Providers Care Claims Representative Name Role Phone Roxie Aguirre Primary Care Provider [phone] Encounter Details Date Type Department Care Team (Latest Contact Info) Description 02/06/2025 10:00 AM EST Office Visit [facility] [address] [place] [address] Yeyn Fenton FNP [address] [place] [address] Hypophosphatemia (Primary Dx); Anxiety Social History Tobacco [...] Description 02/15/2025 1:00 PM EST Clinical Support [facility] [address] [place] [address] 03/13/2025 4:00 PM EST Telemedicine [facility] [address] [place] [address] Roxie Aguirre ANP [address] [place] [address] Scheduled Orders Name Type Priority Associated Diagnoses [...] documented as of this encounter Care Teams Claims Representative Relationship Specialty Start Date End Date Roxie Aguirre ANP [address] [place] [address] PCP - General Family Medicine 12/22/20 documented as of this encounter
[2025-02-06 13:40] LABS: Anion Gap 12 (12-20); Blood Urea Nitrogen 11 mg/dL (9-16); Calcium 9.7 mg/dL (8.4-10.2); Carbon Dioxide 26 mmol/L (22-29); Chloride 107 mmol/L (96-108); Estimated Glomerular Filt Rate > 60; Potassium 4.2 mmol/L (3.3-5.1); Sodium 141 mmol/L (135-145)
--- OUTSIDE RECORDS SUMMARY | 2025-02-06 14:06 | XMS_ITS | Encounter Summary ---
Author Organization [employer] Address [address] [place] [address] 7 [place] [address] Care Team Providers Care Computer Laboratory Technician Name Role Phone Timothy Roxie CAMPOS Primary Care Provider Encounter Details Date Type Department Care Team [...] the past 12 months, has t he [employer], gas, oil or water [employer] water systems threatened to shut off services in your [...] 02/15/2025 1:00 PM EST Clinical Support [facility] [address] [place] [phone] 03/13/2025 4:00 PM EST Telemedicine [facility] [address] [place] [address] [phone] Roxie Aguirre ANP [address] [place], [place] [phone] documented as of this encounter Procedures Procedure Name Priority Date/Time Associated Diagnosis Comments BLOOD GAS, ARTERIAL Routine 02/01/2025 6 :56 PM EST HIGH SENSITIVITY TROPONIN I Routine 02/01/2025 6:36 PM EST URINALYSIS WITH REFLEX TO MICROSCOPIC Routine 02/01/2025 6:36 PM EST URINE ELECTROLYTES Routine 02/01/2025 6: 36 PM EST PHOSPHORUS, URINE, RANDOM Routine 02/01/2025 6:36 PM EST CREATININE, RANDOM URINE Routine 02/01/2025 6:36 PM EST HIGH SENSITIVITY TROPONIN I Routine 02/01/2025 3:31 PM EST CBC WITH AUTO DIFFERENTIAL Routine 02/01/2025 3:31 PM EST PHOSPHATE ( PHOSPHORUS) Routine 02/01/2025 3:31 PM EST MAGNESIUM Routine 02/01/2025 3:31 PM EST COMPREHENSIVE METABOLIC PANEL Routine 02/01/2025 3:31 PM EST documented in this encounter Results * Blood gas, arterial (02/01/2025 6:56 PM EST) ABG pH 7.43 7.35 - 7.45 [facility] Comment:METER #: [id number] additional_comment: Cb wojtashivani ctrbb jesin ABG PCO2 35 32 - 45 mmHg [facility] Comment:METER #: [id number] additional_comment: Cb wojtass ctrbb jesin ABG PO2 87 83 - 108 mmHg [facility] Comment:METER #: [id number] additional_comment: Cb wojtass ctrbb jesin ABG Base Excess 0.3 mmol/L [facility] Comment:METER #: [id number] additional_comment: Cb wojtass ctrbb jesin ABG HCO3 24 22 - 26 mmol/L [facility] Comment:METER #: [id number] additional_comment: Cb wojtass ctrbb jesin ABG Oxygen Saturation 98.0 % [facility] Comment:METER #: [id number] additional_comment: Cb wojtass ctrbb jesin 02/01/2025 6:56 PM EST 02/01/2025 7:00 PM EST us Generic External Data Provider LAB BLOOD ORDERAB LES Final Result [facility] [address] [place] [phone] * Phosphorus, urine, random (02/01/2025 6:36 PM EST) Phosphate, Random Urine 14.2 mg/dL [facility] 02/01/2025 6:36 PM EST 02/01/2025 6:38 PM EST Generic External Data Provider LAB URINE ORDERAB LES Final Result Performing Organization Address [facility] [employer] Phone Number [facility] [address] [place] [phone] * High Sensitivity Troponin I (02/01/2025 6:36 PM EST) TROPONIN I HIGH SENSITIVITY <2.7 <3.5 - 35.0 ng/L [facility] Comment:The Wolf high sens itivity Troponin-I results should beused in conjunction with other diagnostic information suchas ECG, clinical observations and information, and patientsymptoms to aid in the diagnosis of VA. 02/01/2025 6:36 PM EST 02/01/2025 6:38 PM EST Generic External Data Provider LAB BLOOD ORDERAB LES Final Result Performing Organization Address [facility]/[employer] Phone Number [facility] [address] [place] [phone] * Creatinine, Random Urine (02/01/2025 6:36 PM EST) Creatinine, Urine 84.02 mg/dL [facility] 02/01/2025 6:36 PM EST 02/01/2025 6:38 PM EST Generic External Data Provider LAB URINE ORDERAB LES Final Result Performing Organization Address [facility] [employer] Phone Number [facility] [address] [place] [phone] * Urine electrolytes (02/01/2025 6:36 PM EST) Chloride Urine Random 95.0 mmol/L [facility] Sodium Urine Random 99.0 mmol/L [facility] Potassium Urine Random 40.3 mmol/L [facility] 02/01/2025 6:36 PM EST 02/01/2025 6:38 PM EST Generic External Data Provider LAB URINE ORDERAB LES Final Result Performing Organization Address [facility] [employer] de Phone Number [facility] [address] [place] [phone] * Urinalysis with Reflex to Microscopic (02/01/2025 6:36 PM EST) Color Urine Yellow [facility] Appearance Urine Clear [facility] PH 7.5 5.0 - 9.0 [facility] Glucose Urine UA Negative Negative mg/dL [facility] Urine Blood Negative Negative [facility] Specific [place] - Urine 1.010 1.005 - 1.025 [facility] Urine Protein Negative Neg-Trace mg/dL [facility] Urine Ketones 80 Negative mg/dL [facility] Nitrite Urine Negative Negative [facility] Leukocyte Esterase Urine Negative Negative [facility] 02/01/2025 6:36 PM EST 02/01/2025 6:38 PM EST Generic External Data Provider LAB URINE ORDERAB LES Final Result Performing Organization Address [facility] Phone Number [facility] [address] [place] [phone] * Magnesium (02/01/2025 3:31 PM EST) Magnesium 1.8 1.6 - 2.6 mg/dL [facility] 02/01/2025 3:31 PM EST 02/01/2025 3:38 PM EST Generic External Data Provider LAB BLOOD ORDERAB LES Final Result Performing Organization Address [facility] [employer] Phone Number [facility] [address] [place] [phone] * (ABNORMAL) Phosphate (As Phosphorus) (02/01/2025 3:31 PM EST) Phosphorus 0.9(LL) 2.7 - 4.5 mg/dL [facility] Comment:Critical value for t est(s):PHOS Results called to and readback by: MAGALIE Person calling: ANDREW Date: 02/01/25 Time:1606 02/01/2025 3:31 PM EST 02/01/2025 3:38 PM EST us Generic External Data Provider LAB BLOOD ORDERAB LES Final Result [facility] [address] [place] [phone] [phone] * (ABNORMAL) Comprehensive Metabolic Panel (02/01/2025 3:31 PM EST) Sodium 136 135 - 145 mmol/L [facility] Potassium 3.4 3.3 - 5.1 mmol/L [facility] Chloride 101 96 - 108 mmol/L [facility] Carbon Dioxide 21(L) 22 - 29 mmol/L [facility] Anion Gap 17 12 - 20 [facility] Urea Nitrogen (BUN) 12 9 - 16 mg/dL [facility] Creatinine, Serum 0.90 0.5 - 1.4 mg/dL [facility] Creatinine Clr Calc Pharmacy 128.0 [facility] Comment:eGFR (calculated fro m the MDRD study equation) and eCrCl(calculated from the Cockcroft-Gault equation) are based ondifferent parameters and may not yield comparable results.If eCrCl result is absurd, please check patient'sheight/weight. Estimated Glomerular Filt Rate >60 [facility] Comment:Chronic Kidney Disea se: Estimated GFR < 60 mL/min/1.91c2Oalwnb Kidney Disease: Estimated GFR < 15 mL/min/1.73m2 Glucose 118(H) 60 - 115 mg/dL [facility] Calcium 10.1 8.4 - 10.2 mg/dL [facility] Bilirubin, Total 0.9 0.0 - 1.0 mg/dL [facility] Aspartate Amino Transferase 34 5 - 37 U/L [facility] Alanine Aminotransferase 72(H) 0 - 40 U/L [facility] Total Protein 8.2(H) 6.5 - 8.0 g/dL [facility] Albumin Level 5.4(H) 3.5 - 5.0 g/dL [facility] Alkaline Phosphatase 57 39 - 117 U/L [facility] 02/01/2025 3:31 PM EST 02/01/2025 3:38 PM EST Generic External Data Provider LAB BLOOD ORDERAB LES Final Result Performing Organization Address [facility] Phone Number [facility] [address] [place] [phone] * High Sensitivity Troponin I (02/01/2025 3:31 PM EST) [facility] TROPONIN I HIGH SENSITIVITY <2.7 <3.5 - 35.0 ng/L [facility] Comment:The Wolf high sens itivity Troponin-I results should beused in conjunction with other diagnostic information suchas ECG, clinical observations and information, and patientsymptoms to aid in the diagnosis of VA. 02/01/2025 3:31 PM EST 02/01/2025 3:38 PM EST Generic External Data Provider LAB BLOOD ORDERAB LES Final Result Performing Organization Address [facility] [employer] de Phone Number [facility] [address] [place] [phone] * (ABNORMAL) CBC auto differential (02/01/2025 3:31 PM EST) [facility] White Blood Count 12.7(H) 4.8 - 10.8 X10*3/uL [facility] Red Blood Count 5.87(H) 4.60 - 5.80 X10*6/uL [facility] Hemoglobin 17.5 14.0 - 18.0 g/dl [facility] Hematocrit 48.1 42.0 - 52.0 % [facility] Mean Corpuscular Volume 81.9 80.0 - 98.0 fL [facility] Mean Corpuscular Hemoglobin 29.8 27.0 - 33.0 pg [facility] Mean Corpuscular HGB Conc 36.4(H) 31.0 - 36.0 g/dl [facility] Red Cell Distribution Width 11.7 11.0 - 16.0 % [facility] Platelet Count 438(H) 160 - 400 X10*3/uL [facility] Mean Platelet Volume 9.6 9.4 - 12.4 fL [facility] Neutrophils Percent Auto 78.0(H) 45 - 73 % [facility] Imm Gran Pct Auto 0.3 0.0 - 0.4 % [facility] Lymphocytes Percent Auto 13.8(L) 20 - 40 % [facility] Monocytes Percent Auto 7.0 2 - 11 % [facility] Eosinophils Percent Auto 0.2 0 - 4 % [facility] Basophils Percent Auto 0.7 0 - 2 % [facility] NRBC Pct Auto 0.0 0.0 - 0.2 /100WBC [facility] Neutrophils Absolute Auto 9.9(H) 2.0 - 8.3 x10*3/uL [facility] Imm Gran Abs Auto 0.04(H) 0.00 - 0.03 X10*3/uL [facility] Lymphocytes Absolute Auto 1.8 1.2 - 4.9 X10*3/uL [facility] Monocytes Absolute Auto 0.9 0.1 - 1.2 X10*3/uL [facility] Eosinophils Absolute Auto 0.0 0.0 - 0.4 X10*3/uL [facility] Basophils Absolute Auto 0.1 0.0 - 0.2 X10*3/uL [facility] NRBC Abs Auto 0.000 0.0 - 0.012 X10*3/uL [facility] 02/01/2025 3:31 PM EST 02/01/2025 3:38 PM EST us Generic External Data Provider LAB BLOOD ORDERAB LES Final Result [facility] [address] [place] [phone] [phone] documented in this encounter Visit Diagnoses Not on filedocumented in this encounter Additional Health Concerns Assessment Noted Time PHQ-9 Depression Total Score: 4 01/31/20 25 4:04 PM EST documented as of this encounter Care Teams Computer Laboratory Technician Relationship Specialty Start Date End Date Roxie Aguirre ANP [address] [place] [address] PCP - General Family Medicine 12/22/20 documented as of this encounter
--- OUTSIDE RECORDS SUMMARY | 2025-02-06 14:06 | XMS_ITS | Encounter Summary ---
Author Organization [employer] Address [address] [place] [address] Care Team Providers Care Meat Hanger Name Role Phone Roxie Aguirre Primary Care Provider [phone] Reason for Visit * Reason Onset Date Comments Med Refill 10/06/2022 Encounter Details Date Type Department Care Team ([facility] st Contact Info) Description 10/06/2022 Telephone [facility] [address] [place] [address] Roxie Aguirre ANP [address] [place] [address] Med Refill Social History Tobacco Use Types [...] Description 02/15/2025 1:00 PM EST Clinical Support [address] [address] 03/13/2025 4:00 PM EST Telemedicine [address] [address] Roxie Aguirre ANP [address] [place] [address] documented as of this encounter Visit Diagnoses Not on filedocumented in this encounter Care Teams Meat Hanger Relationship Specialty Start Date End Date Roxie Aguirre ANP [address] [place] [phone] PCP - General Family Medicine 12/22/20 documented as of this encounter
--- OUTSIDE RECORDS SUMMARY | 2025-02-06 14:06 | XMS_ITS | Clinical Summary ---
Author Organization [facility] Address [address] [place] [address] Care Team Providers Care Beauty Culturist Name Role Phone [facility] Primary Care Provider [phone] Allergies No known active allergies Active Problems [...] patient's age to complete this topic Insurance [facility] Care Teams Beauty Culturist Relationship Specialty Start Date End Date [address] [address] PCP - General 05/25/23
--- OUTSIDE RECORDS SUMMARY | 2025-02-06 14:07 | XMS_ITS | Encounter Summary ---
Author Organization [employer] Address [address] [place] [address] 7 [place] [address] Care Team Providers Care Computer Video Game Designer Name Role Phone Roxie Aguirre Primary Care Provider [phone] Encounter Details Date Type Department Care Team ([facility] Contact Info) Description 01/30/2025 Telephone [facility] [address] [place] [address] Roxie Aguirre ANP [address] [place] [address] Social History Tobacco Use Types Packs/Day Years [...] caller accepted this outcome. Contact pt at [phone] documented in this encounter Plan of Treatment Upcoming Encounters Date Type Department Care Team ([facility] st Contact Info) Description 02/15/2025 1:00 PM EST Clinical Support [address] [address] 03/13/2025 4:00 PM EST Telemedicine [address] [address] Roxie Aguirre ANP [address] [place] [address] documented as of this encounter Visit Diagnoses Not on filedocumented in this encounter Additional Health Concerns Assessment Noted Time PHQ-9 Depression Total Score: 4 01/31/20 25 4:04 PM EST documented as of this encounter Care Teams Computer Video Game Designer Relationship Specialty Start Date End Date Roxie Aguirre ANP [address] [place] [address] PCP - General Family Medicine 12/22/20 documented as of this encounter
--- OUTSIDE RECORDS SUMMARY | 2025-02-06 14:07 | XMS_ITS | Encounter Summary ---
Author Organization [employer] Address [address] [place] [address] 7 [place] [address] Care Team Providers Care Leak Hunter Name Role Phone Roxie Aguirre Primary Care Provider [phone] Encounter Details Date Type Department Care Team ([facility] st Contact Info) Description 02/06/2025 Orders Only [facility] [address] [place] [address] Roxie Aguirre ANP [address] [place] [address] Social History Tobacco Use Types Packs/Day Years [...] Upcoming Encounters Date Type Department Care Team ([facility] st Contact Info) Description 02/15/2025 1:00 PM EST Clinical Support [address] [address] 03/13/2025 4:00 PM EST Telemedicine [facility] [address] [place] [address] Roxie Aguirre, ANP [address] [place], [place] [phone] documented as of this encounter Procedures Procedure Name Priority Date/Time Associated Diagnosis Comments BASIC METABOLIC PANEL, FASTING Routine 02/06/2025 11:29 AM EST PHOSPHATE ( PHOSPHORUS) Routine 02/06/2025 11:29 AM EST documented in this encounter Results * Phosphate (As Phosphorus) (02/06/2025 11:29 AM EST) Phosphorus 2.9 2.7 - 4.5 mg/dL [facility] 02/06/2025 11:2 9 AM EST 02/06/2025 12:52 PM EST us Generic External Data Provider LAB BLOOD ORDERAB LES Final Result [facility] [address] [place] [address] [phone] * (ABNORMAL) Basic Metabolic Panel, Fasting (02/06/2025 11:29 AM EST) Glucose Fasting 103(H) 60 - 99 mg/dL [facility] Comment:A fasting glucose fr om 100-125 mg/dl is considered impaired(pre-diabetes). 02/06/2025 11:2 9 AM EST 02/06/2025 12:52 PM EST us Generic External Data Provider LAB BLOOD ORDERAB LES Final Result [facility] [address] [place] [address] [phone] documented in this encounter Visit Diagnoses Not on filedocumented in this encounter Additional Health Concerns Assessment Noted Time PHQ-9 Depression Total Score: 4 01/31/20 25 4:04 PM EST documented as of this encounter Care Teams Leak Hunter Relationship Specialty Start Date End Date Roxie Aguirre ANP [address] [place] [address] PCP - General Family Medicine 12/22/20 documented as of this encounter
--- OUTSIDE RECORDS SUMMARY | 2025-02-06 14:07 | XMS_ITS | Encounter Summary ---
Author Organization [employer] Address [address] [place] [address] 7 [place] [address] Care Team Providers Care Stretching Machine Operator Name Role Phone Roxie Aguirre Primary Care Provider [phone] Encounter Details Date Type Department Care Team ([facility] st Contact Info) Description 02/04/2025 Orders Only [facility] [address] [place] [address] Roxie Aguirre ANP [address] [place] [address] Hypophosphatemia (Primary Dx); Diarrhea, unspecified type Social History Tobacco Use Types Packs/Day Years [...] AM EDT documented as of this encounter Progress Notes * BETH Hernandez - 02/04/2025 9:55 AM EST Repeat labs documented in this encounter Plan of Treatment Upcoming Encounters Date Type Department Care Team (Late st Contact Info) Description 02/15/2025 1:00 PM EST Clinical Support [facility] [address] [place] [address] 03/13/2025 4:00 PM EST Telemedicine [address] [address] Roxie Aguirre ANP [address] [place] [address] Scheduled Orders Name Type Priority Associated Diagnoses Orde r Schedule Phosphate (As Phosphorus) Lab Routine Hypophosphatemia Expected: 02/04/2025 (Approximate), Expires: 02/04/2026 documented as of this encounter Procedures Procedure Name Priority Date/Time Associated Diagnosis Comments BASIC METABOLIC PANEL Routine 02/06/2025 11:29 AM EST Hypophosphatemia Diarrhea, unspecified type documented in this encounter Results * Basic Metabolic Panel (02/06/2025 11:29 AM EST) Sodium 141 135 - 145 mmol/L [facility] Potassium 4.2 3.3 - 5.1 mmol/L [facility] Chloride 107 96 - 108 mmol/L [facility] Carbon Dioxide 26 22 - 29 mmol/L [facility] Anion Gap 12 12 - 20 [facility] Urea Nitrogen (BUN) 11 9 - 16 mg/dL [facility] Creatinine, Serum 0.90 0.5 - 1.4 mg/dL [facility] Estimated Glomerular Filt Rate >60 [facility] Comment:Chronic Kidney Disea se: Estimated GFR < 60 mL/min/[id number] Kidney Disease: Estimated GFR < 15 mL/min/1.73m2 Glucose 103 60 - 115 mg/dL [facility] Calcium 9.7 8.4 - 10.2 mg/dL [facility] Blood Venous blood specimen / Unknown 02/06/2025 11:29 AM EST 02/06/2025 12:52 PM EST Roxie CAMPOS LAB BLOOD ORDERABLES Final Resul t [facility] [address] [place] [phone] documented in this encounter Visit Diagnoses Diagnosis Hypophosphatemia- Primary Disorders of phosphorus metabolism Diarrhea, unspecified type documented in this encounter Additional Health Concerns Assessment Noted Time PHQ-9 Depression Total Score: 4 01/31/20 25 4:04 PM EST documented as of this encounter Care Teams Stretching Machine Operator Relationship Specialty Start Date End Date Roxie Aguirre ANP [address] [place] [address] PCP - General Family Medicine 12/22/20 documented as of this encounter
--- OUTSIDE RECORDS SUMMARY | 2025-02-06 14:07 | XMS_ITS | Encounter Summary ---
Author Organization [employer] Address [address] [place] [address] [place] [address] Care Team Providers Care Wireless Sales Consultant Name Role Phone Roxie Aguirre Primary Care Provider [phone] Reason for Visit * Reason Comments Transition Of Care (Tcm) HDF- Unschedule d (Message sent to team nurses) and SDOH screening negative and Tobacco screening negative Encounter Details Date Type Department Care Team ([facility] Contact Info) Description 02/04/2025 Patient Outreach [facility] [address] [place] [address] Roxie Aguirre ANP [address] [place] [address] Transition Of Care (Tcm) (HDF- Unscheduled (Message sent to team nurses) and SDOH screening negative and Tobacco screening negative) Social History Tobacco Use Types Packs/Day Years [...] as of this encounter Progress Notes * Mena Francis RN - 02/04/2025 9:22 AM EST Patient calling to report ED visit on : Date: 01/01-01/03 [place] [facility] [place]en for: accelerating heart beat, hypertension Symptomatic No *if yes message should go to Triage Patient advised will forward to team nurse for follow up Contact pt at [phone] ED reported to make an apt immediately due to the medication that was discontiued and the medications that needs to be changed. * Mena Francis RN - 02/04/2025 9:22 AM EST Telephone call placed to pt who reports still symptomatic. Already had water- like diarrhea twice today and his stomach loudly gurgles. He is taking phosphorus supplement as Rxd. He is wondering if hecan get medication to stop or decrease the diarrhea. Informed I can ask but it is very important hedoes work up to find out cause of diarrhea and that we don't just stop the symptom. He verbalized understanding. Pt denied any dizziness, vision changes, or vomiting. He reports is taking amlodipine but is concerned as blood pressure this morning was 157/100 before meds. He states doesn't think it is accurate as he felt fine and was asymptomatic. Instructed on how to check home blood pressure: sit on a chair next to a table, plant feet on the floor, do not cross legs, rest arm on the table nextto you, blood pressure cuff should be 1 inch above the crease in your arm with the tube for the cuff coming out where the center of crease is, cuff should be tightened to be snug where it doesn't fall off if you drop your arm to your side but not tight, don't talk or move while it is testing. Pt adv ised to check blood pressure at least 30 min-1hr after taking meds. Advised to monitor and keep home log. If continuing to get elevated readings or is symptomatic, call us. Pt reports that he thinks blood pressure may be high d/t his anxiety as well. He reports in the hospital they gave him ativan and his blood pressure went down to being WNL. He is wondering if he can get Rx for ativan. 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 Inquired how his lexapro that he started 01/31/25 is going. Pt states doesn't feel a difference. Explained that it can take up to 6 weeks to feel full effect with this medication and that it slowly takes effect. Pt reports headache and nausea since starting it. Informed these are common side effects. Advised to try to take it with food to minimize GI upset and that side effects should resolve with time. Informed of lab orders placed to recheck phosphorus to be drawn Tuesday or . Pt agreeable. Pt requesting HDF this week as he is very worried with frequency of diarrhea that his phosphorus will drop again even with supplement. Also wants to go over his meds and talk about plan. Nothing available or Tuesday. Pt agreeable to appointment Tuesday with [facility]. Pt informed pharmacy will call him to discuss meds prior to that appointment. Pt will get labs done that day. Pt advised if experiencing weakness, dizziness, or persistently high blood pressure to call us prior to then. Advised good oral hydration. Pt agrees with plan. Needs HDF for hypophosphatemia, please confirm he has nephrology appointment scheduled. Will need repeat labs later this week, have ordered. Can get done Tue or , sooner if he is feeling weak. * BETH Hernandez - 02/04/2025 9:22 AM EST Stool testing ordered, letter for work absence generated. See note in chart. documented in this encounter Miscellaneous Notes * Significant Event - Dixie Peña - 02/04/2025 9:52 AM EST 02/04/25 0933 Hospital Discharges and Admission for [facility] Type of Visit Hospital Admission Date of Admission/Visit 02/01/25 Date of Discharge 02/03/25 [facility] Diagnosis Hypophosphatemia Disposition Discharged Home Follow-Up Actions Follow-Up Needed Provider appointment Follow-Up Outcome Spoke to Patient Initial Contact Date 02/04/25 KHUSHBOO Palacio placed outbound call to patient for HDF outreach. Patient's name and were confirmed. Patient educated on the importance of follow up with provider following inpatient admission. Patient offered an HDF appt. Patient declined the appointment and stated would like an appointment within today or tomorrow since he is off from work. CC scanned discharge summary into patient's chart. Message sent to team nurses to review and follow up with patient. documented in this encounter Plan of Treatment Upcoming Encounters Date Type Department Care Team (Late st Contact Info) Description 02/15/2025 1:00 PM EST Clinical Support [facility] [address] [place] [address] 03/13/2025 4:00 PM EST Telemedicine [facility] [address] [place] [address] Roxie Aguirre ANP [address] [place] [address] documented as of this encounter Visit Diagnoses Not on filedocumented in this encounter Additional Health Concerns Assessment Noted Time PHQ-9 Depression Total Score: 4 01/31/20 25 4:04 PM EST documented as of this encounter Care Teams Wireless Sales Consultant Relationship Specialty Start Date End Date Roxie Aguirre ANP [address] [place] [address] PCP - General Family Medicine 12/22/20 documented as of this encounter
--- OUTSIDE RECORDS SUMMARY | 2025-02-06 14:07 | XMS_ITS | Encounter Summary ---
Author Organization [employer] Address [address] [place] [address] 7 [place] [address] Care Team Providers Care Power Generating Plant Operator Name Role Phone Roxie Aguirre Primary Care Provider [phone] Encounter Details Date Type Department Care Team ([facility] st Contact Info) Description 02/06/2025 Orders Only [facility] [address] [place] [address] Roxie Aguirre ANP [address] [place] [address] Diarrhea, unspecified type (Primary Dx) Social History Tobacco Use Types Packs/Day Years [...] encounter Progress Notes * BETH Hernandez - 02/06/2025 11:32 AM EST Pt persistent diarrhea and weakness. Getting labs now. Needs stool studies. None located in [place]. Spoke w/ pt. Not feeling well. Labs will be done and I will generate letter for him for work through next riday given significant electrolyte abn that need likely correction and identifying cause of significant diarrhea as the cause. documented in this encounter Plan of Treatment Upcoming Encounters Date Type Department Care Team (Late st Contact Info) Description 02/15/2025 1:00 PM EST Clinical Support [facility] [address] [place] [address] 03/13/2025 4:00 PM EST Telemedicine [facility] [address] [place] [address] Roxie Aguirre ANP [address] [place] [address] Scheduled Orders Name Type Priority Associated Diagnoses Orde r Schedule Stool - Gastrointestinal panel Microbiology Routine Diarrhea, unspecified type Expected: 02/06/2025 (Approximate), Expires: 02/06/2026 Ova and Parasites Microbiology Routine Diarrhea, unspecified type Expected: 02/06/2025 (Approximate), Expires: 02/06/2026 documented as of this encounter Visit Diagnoses Diagnosis Diarrhea, unspecified type- Primary documented in this encounter Additional Health Concerns Assessment Noted Time PHQ-9 Depression Total Score: 4 01/31/20 25 4:04 PM EST documented as of this encounter Care Teams Power Generating Plant Operator Relationship Specialty Start Date End Date Roxie Aguirre ANP [address] [place] [address] PCP - General Family Medicine 12/22/20 documented as of this encounter
--- OUTSIDE RECORDS SUMMARY | 2025-02-06 14:07 | XMS_ITS | Encounter Summary ---
Author Organization [employer] Address [address] [place] [address] 7 [place] [address] Care Team Providers Care Resource Center Teacher Name Role Phone Timothy Roxie CAMPOS Primary Care Provider [phone] Encounter Details Date Type Department Care Team (Latest Contact Info) Description 02/06/2025 Travel Social History Tobacco Use Types Packs/Day [...] Description 02/15/2025 1:00 PM EST Clinical Support [address] [address] 03/13/2025 4:00 PM EST Telemedicine [address] [address] Roxie Aguirre ANP [address] [place] [address] documented as of this encounter Visit Diagnoses Not on filedocumented in this encounter Additional Health Concerns Assessment Noted Time PHQ-9 Depression Total Score: 4 01/31/20 25 4:04 PM EST documented as of this encounter Care Teams Resource Center Teacher Relationship Specialty Start Date End Date Roxie Aguirre ANP [address] [place] [address] PCP - General Family Medicine 12/22/20 documented as of this encounter
--- OUTSIDE RECORDS SUMMARY | 2025-02-06 14:07 | XMS_ITS | Encounter Summary ---
Author Organization [employer] Address [address] [place] [address] 7 [place] [address] Care Team Providers Care Donations Attendant Name Role Phone Roxie Aguirre Primary Care Provider [phone] Encounter Details Date Type Department Care Team (Latest Contact Info) Description 02/01/2025 Results Follow-Up [facility] [address] [place] [address] Roxie Aguirre ANP [address] [place] [address] CBC auto differential, High Sensitivity Troponin I, [...] Description 02/15/2025 1:00 PM EST Clinical Support [facility] [address] [place] [address] 03/13/2025 4:00 PM EST Telemedicine [facility] [address] [place] [address] Roxie Aguirre ANP [address] [place] [address] documented as of this encounter Visit Diagnoses Not on filedocumented in this encounter Additional Health Concerns Assessment Noted Time PHQ-9 Depression Total Score: 4 01/31/20 25 4:04 PM EST documented as of this encounter Care Teams Donations Attendant Relationship Specialty Start Date End Date Roxie Aguirre ANP [address] [place] [address] PCP - General Family Medicine 12/22/20 documented as of this encounter
--- OUTSIDE RECORDS SUMMARY | 2025-02-06 14:07 | XMS_ITS | Encounter Summary ---
Author Organization [employer] Address [address] [place] [address] [place] [address] Care Team Providers Care Floating Derrick Operator Name Role Phone Roxie Aguirre Primary Care Provider [phone] Reason for Visit * Reason Onset Date Comments Chart Prep 02/05/2025 Encounter Details Date Type Department Care Team ([facility] Contact Info) Description 02/05/2025 Telephone [facility] [address] [place] [address] Yeny Fenton FNP [address] [place] [address] Chart Prep Social History Tobacco Use Types Packs/Day Years [...] encounter Miscellaneous Notes * Telephone Encounter - Radha Doherty MA - 02/05/2025 9:25 AM EST Chart Prep Labs: not done from 02/04/25 Images: not applicable Referrals: not applicable Vaccines due: Covid, Flu, PCV20, Hep B, Hep A, and HPV Screenings: Lipid panel, Hep C. Overdue care gaps: Disability screen and Tobacco documented in this encounter Plan of Treatment Upcoming Encounters Date Type Department Care Team (Late st Contact Info) Description 02/15/2025 1:00 PM EST Clinical Support [address] [address] 03/13/2025 4:00 PM EST Telemedicine [address] [address] Roxie Aguirre ANP [address] [place] [address] documented as of this encounter Visit Diagnoses Not on filedocumented in this encounter Additional Health Concerns Assessment Noted Time PHQ-9 Depression Total Score: 4 01/31/20 4:04 PM EST documented as of this encounter Care Teams Floating Derrick Operator Relationship Specialty Start Date End Date Roxie Aguirre ANP [address] [place] [address] PCP - General Family Medicine 12/22/20 documented as of this encounter
--- OUTSIDE RECORDS SUMMARY | 2025-02-06 14:07 | XMS_ITS | Encounter Summary ---
Author Organization [employer] Address [address] [place] [address] 7 [place] [address] Care Team Providers Care Preschool Paraprofessional Name Role Phone Roxie Aguirre Primary Care Provider [phone] Reason for Visit * Reason Onset Date Comments ER Follow-up 02/04/2025 Encounter Details Date Type Department Care Team ([facility] st Contact Info) Description 02/04/[address] [facility] [address] [place] [address] Roxie Aguirre ANP [address] [place] [address] ER Follow-up Social History Tobacco Use Types Packs/Day Years [...] encounter Miscellaneous Notes * Telephone Encounter - Mena Francis RN - 02/04/2025 11:59 AM EST See other encounter * Telephone Encounter - Sergio Powell - 02/04/2025 8:39 AM EST Patient calling to report ED visit on : Date: 01/01-01/03 [place]: [facility] Seen for: accelerating heart beat, hypertension Symptomatic No *if yes message should go to Triage Patient advised will forward to team nurse for follow up Contact pt at [phone] ED reported to make an apt immediately due to the medication that was discontiued and the medications that needs to be changed. documented in this encounter Plan of Treatment Upcoming Encounters Date Type Department Care Team (Late st Contact Info) Description 02/15/2025 1:00 PM EST Clinical Support [facility] [address] [place] [address] 03/13/2025 4:00 PM EST Telemedicine [facility] [address] [place] [address] Roxie Aguirre, ANP [address] [place] [address] documented as of this encounter Visit Diagnoses Not on filedocumented in this encounter Additional Health Concerns Assessment Noted Time PHQ-9 Depression Total Score: 4 01/31/20 25 4:04 PM EST documented as of this encounter Care Teams Preschool Paraprofessional Relationship Specialty Start Date End Date Roxie Aguirre ANP [address] [place] [address] PCP - General Family Medicine 12/22/20 documented as of this encounter
--- OUTSIDE RECORDS SUMMARY | 2025-02-06 14:07 | XMS_ITS | Encounter Summary ---
Author Organization [employer] Address [address] [place] [address] 7 [place] [address] Care Team Providers Care Petroleum Transport Driver Name Role Phone Roxie Aguirre Primary Care Provider [phone] Encounter Details Date Type Department Care Team ([facility] st Contact Info) Description 01/31/2025 Results Follow-Up [facility] [address] [place] [address] Roxie Aguirre ANP [address] [place] [address] Basic Metabolic Panel, TSH W/Reflex to FT4, [...] PM EST Clinical Support [facility] [address] [place] [address] 03/13/2025 4:00 PM EST Telemedicine [facility] [address] [place] [address] Roxie Aguirre ANP [address] [place] [address] documented as of this encounter Procedures Procedure Name Priority Date/Time Associated Diagnosis Comments VITAMIN D,25-OH,TOTAL,IA Routine 01/31/2025 1:46 PM EST Hypercalcemia documented in this encounter Results * (ABNORMAL) Vitamin D, 25-Hydroxy, Total, Immunoassay (01/31/2025 1:46 PM EST) Vitamin D 25-OH Total 27.3(L) >30 ng/mL [facility] Comment: Health Based Reference Values*< 20 ng/mL Ilpabdfrs18-16 ng/mL Insufficient> 30 ng/mL Sufficient*Azul LOPEZ. N [...] CAMPOS LAB BLOOD ORDERABLES Final Resul t [facility] [address] [place] [address] [phone] documented in this encounter Visit Diagnoses Diagnosis Hypercalcemia- Primary documented in this encounter Additional Health Concerns Assessment Noted Time PHQ-9 Depression Total Score: 4 01/31/20 25 4:04 PM EST documented as of this encounter Care Teams Petroleum Transport Driver Relationship Specialty Start Date End Date Roxie Aguirre ANP [address] [place] [address] PCP - General Family Medicine 12/22/20 documented as of this encounter
--- OUTSIDE RECORDS SUMMARY | 2025-02-06 14:07 | XMS_ITS | Clinical Summary ---
Author Organization [employer] Address [address] [place] [address] 7 [place] [address] Care Team Providers Care Camera Repairer Name Role Phone Timothy Roxie CAMPOS Primary Care Provider Allergies No known active allergies Medications * This document contains information received from the source organization and may not represent a complete record from that organization. cetirizine (ZyrTEC) 10 MG tabletIndication s:Rash TAKE 1 TABLET BY MOUTH EVERY DAY IN THE MORNING 90 tablet 1 05/29/19 25 Active albuterol 108 (90 Base) MCG/ACT inhalerIndicatio ns:Mild intermittent reactive airway disease without complication Take as needed every 4-6 hours for SOB/wheezin g 18 g 1 02/01/20 25 Active ergocalciferol (Vitamin D2) 1.25 MG (20494 UT) capsule Take 1,250 mcg by mouth 1 (one) time per week. 02/04/20 25 Active potassium & sodium phosphates (Phos-NaK) 280-160-250 MG packet Take 1 packet by mouth 2 times daily. 02/04/20 25 Active amLODIPine (Norvasc) 10 MG tablet Take 1 tablet (10 mg) by mouth Once per day. 90 tablet 3 02/07/20 25 026 Active escitalopram (Lexapro) 5 MG tabletIndication s:Anxiety Take 2 tablets (10 mg) by mouth Once per day. 60 tablet 2 02/07/20 25 026 Active albuterol 108 (90 Base) [...] use 11/15/19 21 025 Discontinued(Th erapy completed) hydroCHLOROthiaz jaqueline (HYDRODiuril) 25 MG tabletIndication s:Essential hypertension Take 1 tablet (25 mg) by mouth Once per day. 30 tablet 11 01/31/20 25 025 Discontinued(Al ternate therapy) escitalopram (Lexapro) 5 MG tabletIndication s:Anxiety Take 1 tablet (5 mg) by mouth Once per day. 30 tablet 2 02/01/20 25 Discontinued amLODIPine (Norvasc) 5 MG tablet Take 5 mg by mouth Once per day. 02/04/20 025 Discontinued(In effective) Active Problems Problem Noted Date Diagnosed Date Anxiety 01/31/2025 Reactive airway disease without complication 08/2024 Generalized anxiety disorder with panic attacks 01/30/2025 Vertebral compression fracture 05/25/2023 Overview (06/09/2023): Last Assessment & Plan: Superior endplate compression fractures of T12, L1, L2 vertebral bodies - Spine consult - TLS precautions Essential hypertension 04/06/2022 Resolved Problems Problem Noted Date Diagnosed Date Resolved Date Scalp laceration 05/25/2023 01/31/2025 Overview (06/09/2023): Last Assessment & Plan: Posterior scalp laceration about 5 cm -Repaired with 8 tawana Encounters * This document contains information received from the source organization and may not represent a complete record from that organization. Date Type Department Care Team Description 02/06/2025 10:00 AM EST Office Visit [facility] [address] [place] [phone] Yeny Fenton FNP Hypophosphatemia (Primary Dx); Anxiety 02/06/2025 Orders Only [address] [address] Roxie Aguirre ANP 02/06/2025 Orders Only [address] [address] Roxie Aguirre ANP Diarrhea, unspecified type (Primary Dx) 02/06/2025 Travel 02/05/[address] [address] Yeny Fenton FNP Chart Prep 02/04/2025 Orders Only [address] [address] Roxie Aguirre ANP Hypophosphatemia (Primary Dx); Diarrhea, unspecified type 02/04/2025 Patient Outreach [address] [address] Roxie Aguirre ANP Transition Of Care (Tcm) (HDF- Unscheduled (Message sent to team nurses) and SDOH screening negative and Tobacco screening negative) 02/04/[address] [address] Roxie Aguirre ANP ER Follow-up 02/01/2025 Results Follow-Up [address] Kartik [phone] Roxie Aguirre ANP CBC auto differential, High Sensitivity Troponin I, Comprehensive Metabolic Panel, Additional followed-up results: 2 02/01/2025 Orders Only GENERIC EXTERNAL DATA DEPARTMENT Provider, Generic External Data 01/31/2025 11:15 AM EST Office Visit [address] [address] Roxie Aguirre ANP Essential hypertension (Primary Dx); Anxiety; Dietary counseling; Exercise counseling; Compression fracture of lumbar vertebra, unspecified lumbar vertebral level, sequela; Mild intermittent reactive airway disease without complication; Witnessed episode of apnea 01/31/2025 Results Follow-Up [address] [address] Roxie Aguirre ANP Basic Metabolic Panel, TSH W/Reflex to FT4, Hemoglobin A1c 01/30/2025 4:00 PM EST Office Visit [facility] [address] [place] [address] Stephanie Jerez MD Essential hypertension (Primary Dx); Depression with anxiety; Anxiety 01/30/2025 Travel 01/30/2025 Telephone [facility] [address] [place] [address] Roxie Aguirre ANP 01/25/2025 Telephone [facility] [address], [place] [phone] Roxie Aguirre ANP Nurse Triage from Last [...] Mass Index 30.2 02/06/2025 10:08 AM EST Plan of Treatment Upcoming Encounters Date Type Department Care Team (Late st Contact Info) Description 02/15/2025 1:00 PM EST Clinical Support [facility] [address] [place] [phone] 03/13/2025 4:00 PM EST Telemedicine [facility] [address] [place] [phone] Roxie Aguirre ANP [address] [place] [address] Health Maintenance Due Date Last Done Comments Lipid Panel 1997 HIB Vaccines (1 of 1 - Risk 1-dose series) 10/27/1998 Meningococcal B Vaccine (1 of 4 - Increased Risk) 07/28/2007 Family Planning (PISQ) 2012 HPV Vaccines (1 - Male 3-dose series) 2012 Meningococcal Vaccine (2 - Risk 2-dose series) 05/29/2015 04/03/2015 Hepatitis C Screening 07/28/2015 Hepatitis A Vaccines [...] history exists Depression Screening 01/30/2026 01/30/2025, 01/31/20 25 Alcohol/Substance Use Screening 01/31/2026 01/31/2025 SDOH Screening 02/04/2026 02/04/2025 Disability Screening 02/06/2026 02/06/2025 Tobacco Screening 02/06/2026 02/06/2025 DTaP/Tdap/Td Vaccines (3 - Td or Tdap) 12/16/2031 12/15/2021, 12/22/2020 Zoster Vaccines (1 of 2) 07/28/2047 RSV Patients and Patients Aged 60 years or older (1 - 1-dose 75+ series) 2072 HIV Screening Completed 04/06/2022 IPV Vaccines Aged Out No longer eligi ble based on patient's age to complete this topic RSV under 20 months Aged Out No longe r eligible based on patient's age to complete this topic Rotavirus Vaccines Aged Out No longer eligible based on patient's age to complete this topic Procedures Procedure Name Priority Date/Time Associated Diagnosis Comments PHOSPHATE ( PHOSPHORUS) Routine 02/06/2025 11:29 AM EST BASIC METABOLIC PANEL, FASTING Routine 02/06/2025 11:29 AM EST BASIC METABOLIC PANEL Routine 02/06/2025 11:29 AM EST Hypophosphatemia Diarrhea, unspecified type BLOOD GAS, ARTERIAL Routine 02/01/2025 6 :56 PM EST PHOSPHORUS, URINE, RANDOM Routine 02/01/2025 6:36 PM EST HIGH SENSITIVITY TROPONIN I Routine 02/01/2025 6:36 PM EST CREATININE, RANDOM URINE Routine 02/01/2025 6:36 PM EST URINE ELECTROLYTES Routine 02/01/2025 6: 36 PM EST URINALYSIS WITH REFLEX TO MICROSCOPIC Routine 02/01/2025 6:36 PM EST MAGNESIUM Routine 02/01/2025 3:31 PM EST PHOSPHATE [...] Recently Relevant to Health Maintenance Results * (ABNORMAL) Basic Metabolic Panel, Fasting (02/06/2025 11:29 AM EST) Pathologist [facility] Glucose Fasting 103(H) 60 - 99 mg/dL [facility] Comment:A fasting glucose fr om 100-125 mg/dl is considered impaired(pre-diabetes). 02/06/2025 11:2 9 AM EST 02/06/2025 12:52 PM EST Generic External Data Provider LAB BLOOD ORDERAB LES Final Result Performing Organization Address [facility]/ZIP Co de Phone Number [facility] [address] [place] [phone] * Phosphate (As Phosphorus) (02/06/2025 11:29 AM EST) Only the most recent of2 resultswithin the time period is included. Pathologist [facility] Phosphorus 2.9 2.7 - 4.5 mg/dL [facility] 02/06/2025 11:2 9 AM EST 02/06/2025 12:52 PM EST Philo External Data Provider LAB BLOOD ORDERAB LES Final Result Performing Organization Address [facility] Co de Phone Number [facility] [address] [place] [phone] * Basic Metabolic Panel (02/06/2025 11:29 AM EST) Only the most recent of2 resultswithin the time period is included. Pathologist [facility] Sodium 141 135 - 145 mmol/L [facility] Potassium 4.2 3.3 - 5.1 mmol/L [facility] Chloride 107 96 - 108 mmol/L [facility] Carbon Dioxide 26 22 - 29 mmol/L [facility] Anion Gap 12 12 - 20 [facility] Urea Nitrogen (BUN) 11 9 - 16 mg/dL [facility] Creatinine, Serum 0.90 0.5 - 1.4 mg/dL [facility] Estimated Glomerular Filt Rate >60 [facility] Comment:Chronic Kidney Disea se: Estimated GFR < 60 mL/min/1.47o0Sljmde Kidney Disease: Estimated GFR < 15 mL/min/1.73m2 Glucose 103 60 - 115 mg/dL [facility] Calcium 9.7 8.4 - 10.2 mg/dL [facility] Blood Venous blood specimen / Unknown 02/06/2025 11:29 AM EST 02/06/2025 12:52 PM EST us Roxie Aguirre [facility] LAB BLOOD ORDERABLES Final Resul t [facility] [address] [place] [phone] * Blood gas, arterial (02/01/2025 6:56 PM EST) ABG pH 7.43 7.35 - 7.45 [facility] Comment:METER #: [id number] additional_comment: Cb linda ctrbb jesin ABG PCO2 35 32 - 45 mmHg [facility] Comment:METER #: [id number] additional_comment: Cb womarstashivani ctrbb jesin ABG PO2 87 83 - 108 mmHg [facility] Comment:METER #: [id number] additional_comment: Cb linda ctrbb jesin ABG Base Excess 0.3 mmol/L [facility] Comment:METER #: [id number] additional_comment: Cb womarstashivani ctrbb jesin ABG HCO3 24 22 - 26 mmol/L [facility] Comment:METER #: [id number] additional_comment: Cb jostintashivani ctrbb jesin ABG Oxygen Saturation 98.0 % [facility] Comment:METER #: [id number] additional_comment: Cb linda ctrbb jesin 02/01/2025 6:56 PM EST 02/01/2025 7:00 PM EST us Generic External Data Provider LAB BLOOD ORDERAB LES Final Result Performing Organization Address City/[facility]/ZIP Co de Phone Number [facility] [address] [place] [phone] * High Sensitivity Troponin I (02/01/2025 6:36 PM EST) Only the most recent of2 resultswithin the time period is included. TROPONIN I HIGH SENSITIVITY <2.7 <3.5 - 35.0 ng/L [facility] Comment:The Wolf high sens itivity Troponin-I results should beused in conjunction with other diagnostic information suchas ECG, clinical observations and information, and patientsymptoms to aid in the diagnosis of DC. 02/01/2025 6:36 PM EST 02/01/2025 6:38 PM EST Generic External Data Provider LAB BLOOD ORDERAB LES Final Result Performing Organization Address [facility] Co de Phone Number [facility] [address] [place] [phone] * Urinalysis with Reflex to Microscopic (02/01/2025 6:36 PM EST) Color Urine Yellow [facility] Appearance Urine Clear [facility] PH 7.5 5.0 - 9.0 [facility] Glucose Urine UA Negative Negative mg/dL [facility] Urine Blood Negative Negative [facility] Specific [place] - Urine 1.010 1.005 - 1.025 [facility] Urine Protein Negative Neg-Trace mg/dL [facility] Urine Ketones 80 Negative mg/dL [facility] Nitrite Urine Negative Negative [facility] Leukocyte Esterase Urine Negative Negative [facility] 02/01/2025 6:36 PM EST 02/01/2025 6:38 PM EST Generic External Data Provider LAB URINE ORDERAB LES Final Result Performing Organization Address City/[facility] Co de Phone Number [facility] [address] [place] [phone] * Urine electrolytes (02/01/2025 6:36 PM EST) Chloride Urine Random 95.0 mmol/L [facility] Sodium Urine Random 99.0 mmol/L [facility] Potassium Urine Random 40.3 mmol/L [facility] 02/01/2025 6:36 PM EST 02/01/2025 6:38 PM EST Generic External Data Provider LAB URINE ORDERAB LES Final Result Performing Organization Address [facility]/ZIP Co de Phone Number [facility] [address] [place] [phone] * Phosphorus, urine, random (02/01/2025 6:36 PM EST) Phosphate, Random Urine 14.2 mg/dL [facility] 02/01/2025 6:36 PM EST 02/01/2025 6:38 PM EST Generic External Data Provider LAB URINE ORDERAB LES Final Result Performing Organization Address [facility]/ZIP Co de Phone Number [facility] [address] [place] [phone] * Creatinine, Random Urine (02/01/2025 6:36 PM EST) Creatinine, Urine 84.02 mg/dL [facility] 02/01/2025 6:36 PM EST 02/01/2025 6:38 PM EST Generic External Data Provider LAB URINE ORDERAB LES Final Result Performing Organization Address [facility] Co de Phone Number [facility] [address] [place] [phone] * (ABNORMAL) CBC auto differential (02/01/2025 3:31 PM EST) White Blood Count 12.7(H) 4.8 - 10.8 X10*3/uL [facility] Red Blood Count 5.87(H) 4.60 - 5.80 X10*6/uL [facility] Hemoglobin 17.5 14.0 - 18.0 g/dl [facility] Hematocrit 48.1 42.0 - 52.0 % [facility] Mean Corpuscular Volume 81.9 80.0 - 98.0 fL [facility] Mean Corpuscular Hemoglobin 29.8 27.0 - 33.0 pg [facility] Mean Corpuscular HGB Conc 36.4(H) 31.0 - 36.0 g/dl [facility] Red Cell Distribution Width 11.7 11.0 - 16.0 % [facility] Platelet Count 438(H) 160 - 400 X10*3/uL [facility] Mean Platelet Volume 9.6 9.4 - 12.4 fL [facility] Neutrophils Percent Auto 78.0(H) 45 - 73 % [facility] Imm Gran Pct Auto 0.3 0.0 - 0.4 % [facility] Lymphocytes Percent Auto 13.8(L) 20 - 40 % [facility] Monocytes Percent Auto 7.0 2 - 11 % [facility] Eosinophils Percent Auto 0.2 0 - 4 % [facility] Basophils Percent Auto 0.7 0 - 2 % [facility] NRBC Pct Auto 0.0 0.0 - 0.2 /100WBC [facility] Neutrophils Absolute Auto 9.9(H) 2.0 - 8.3 x10*3/uL [facility] Imm Gran Abs Auto 0.04(H) 0.00 - 0.03 X10*3/uL [facility] Lymphocytes Absolute Auto 1.8 1.2 - 4.9 X10*3/uL [facility] Monocytes Absolute Auto 0.9 0.1 - 1.2 X10*3/uL [facility] Eosinophils Absolute Auto 0.0 0.0 - 0.4 X10*3/uL [facility] Basophils Absolute Auto 0.1 0.0 - 0.2 X10*3/uL [facility] NRBC Abs Auto 0.000 0.0 - 0.012 X10*3/uL [facility] 02/01/2025 3:31 PM EST 02/01/2025 3:38 PM EST Generic External Data Provider LAB BLOOD ORDERAB LES Final Result Performing Organization Address [facility]/ZIP Co de Phone Number [facility] [address] [place] [phone] * Magnesium (02/01/2025 3:31 PM EST) [facility] Magnesium 1.8 1.6 - 2.6 mg/dL [facility] 02/01/2025 3:31 PM EST 02/01/2025 3:38 PM EST Generic External Data Provider LAB BLOOD ORDERAB LES Final Result Performing Organization Address [facility] de Phone Number [facility] [address] [place] [phone] * (ABNORMAL) Comprehensive Metabolic Panel (02/01/2025 3:31 PM EST) [facility] Sodium 136 135 - 145 mmol/L [facility] Potassium 3.4 3.3 - 5.1 mmol/L [facility] Chloride 101 96 - 108 mmol/L [facility] Carbon Dioxide 21(L) 22 - 29 mmol/L [facility] Anion Gap 17 12 - 20 [facility] Urea Nitrogen (BUN) 12 9 - 16 mg/dL [facility] Creatinine, Serum 0.90 0.5 - 1.4 mg/dL [facility] Creatinine Clr Calc Pharmacy 128.0 [facility] Comment:eGFR (calculated fro m the MDRD study equation) and eCrCl(calculated from the Cockcroft-Gault equation) are based ondifferent parameters and may not yield comparable results.If eCrCl result is absurd, please check patient'sheight/weight. Estimated Glomerular Filt Rate >60 [facility] Comment:Chronic Kidney Disea se: Estimated GFR < 60 mL/min/1.25m7Akyozb Kidney Disease: Estimated GFR < 15 mL/min/1.73m2 Glucose 118(H) 60 - 115 mg/dL [facility] Calcium 10.1 8.4 - 10.2 mg/dL [facility] Bilirubin, Total 0.9 0.0 - 1.0 mg/dL [facility] Aspartate Amino Transferase 34 5 - 37 U/L [facility] Alanine Aminotransferase 72(H) 0 - 40 U/L [facility] Total Protein 8.2(H) 6.5 - 8.0 g/dL [facility] Albumin Level 5.4(H) 3.5 - 5.0 g/dL [facility] Alkaline Phosphatase 57 39 - 117 U/L [facility] 02/01/2025 3:31 PM EST 02/01/2025 3:38 PM EST us Generic External Data Provider LAB BLOOD ORDERAB LES Final Result [facility] [address] [place] [phone] * (ABNORMAL) Vitamin D, 25-Hydroxy, Total, Immunoassay (01/31/2025 1:46 PM EST) Vitamin D 25-OH Total 27.3(L) >30 ng/mL [facility] Comment: Health Based Reference Values*< 20 ng/mL [id number] ng/mL Insufficient> 30 ng/mL Sufficient*Azul LOPEZ. N [...] 01/31/2025 6:11 PM EST us Roxie Aguirre ANP LAB BLOOD ORDERABLES Final Resul t Performing Organization Address [facility] Co de Phone Number [facility] [address] [place] [phone] * TSH W/Reflex to FT4 (01/31/2025 1:46 PM EST) TSH reflex Free T4 1.01 0.32 - 4.0 uIU/mL [facility] Blood Venous blood specimen / Unknown 01/31/2025 1:46 PM EST 01/31/2025 3:59 PM EST us Roxie Aguirre ANP LAB BLOOD ORDERABLES Final Resul t Performing Organization Address [facility] Co de Phone Number [facility] [address] [place] [phone] * Hemoglobin A1c (01/31/2025 1:46 PM EST) Hemoglobin A1c 5.2 <6.0 % [facility] Comment:Hemoglobin A1C Refer ence Range Adults: 4.8 - 6.0 % Non diabetic: < 6.0 % Goal: < 7.0 %Additional Action Suggested: > 8.0 %Note: Hemoglobin A1c results are invalid for patients with abnormal amounts of HbF. Blood transfusions may impact the HbA1c concentration in the patient sample. Estimated Average Glucose 103 mg/dL [facility] Comment:eAG = Estimated ave rage glucose which is %A1C expressed asaverage glucose, using the formula of the V0F-IgsmhoaJqjdttl Glucose study (ADAG), Diabetes Care, Vol.31,#8,Oct. 2007 Blood Venous blood specimen / Unknown 01/31/2025 1:46 PM EST 01/31/2025 3:59 PM EST Roxie Aguirre [facility] LAB BLOOD ORDERABLES Final Resul t Performing Organization Address City/[facility]/ZIP Co de Phone Number [facility] [address] [place] [phone] * HIV-1/2 Antigen and Antibodies, Fourth Generation, with Reflexes (04/06/2022 1:49 PM EST) [facility] HIV Antigen/Antibody, 4th Generation NON-REAC TIVE NON-REAC TIVE [employer] [place] [facility] Comment: HIV-1 antigen and HIV-1/HIV-2 antibodies [...] purpose. For additional information please refer to http://education.[employer])/faq/ZWZ127 (This link is being provided for informational/ educational purposes only.) The performance of this assay has not been clinically validated in patients less than 2 years old. 04/06/2022 1:49 PM EST 04/06/2022 1:50 PM EST Roixe Aguirre [facility] LAB BLOOD ORDERABLES Final Resul t Performing Organization Address City/[facility]/ZIP Co de Phone Number [facility] [address] [place] [phone] [facility] [address], ([address]) [place] [phone] from Last 3 Months or Most Recently Relevant to Health Maintenance Insurance [employer] PPO [employer] Care Teams Camera Repairer Relationship Specialty Start Date End Date Roxie Aguirre ANP [address] [place] [phone] PCP - General Family Medicine 12/22/20
[2025-02-06 14:27] LABS: Parathyroid Hormone Intact 54.1 pg/mL (8.7-77.1)
== END 2025-02-06 11:23 | disposition home or self-care (01) ==
LOC: HO.HHCL 11:22
PROVIDERS: PCP Nurse Practitioner Primary Care; Visit Provider Internal Medicine
DX: E83.39 Other disorders of phosphorus metabolism (principal); R19.7 Diarrhea, unspecified
CPT/HCPCS: 36415; 80048; 83970; 84100

== ENCOUNTER 2025-02-07 15:18 | Outpatient (REF) | payer OTHER, SELFPAY ==
--- OUTSIDE RECORDS SUMMARY | 2025-02-06 10:00 | XMS_ITS | Encounter Summary ---
Author Organization [employer] Address [address] [place] [address] 7 [place] [address] Care Team Providers Care Monotypist Name Role Phone Roxie Aguirre Primary Care Provider [phone] Encounter Details Date Type Department Care Team (Latest Contact Info) Description 02/06/2025 10:00 AM EST Office Visit [facility] [address] [place] [address] Yeny Fenton FNP [address] [place] [address] Hypophosphatemia (Primary Dx); Anxiety Social History Tobacco Use Types Packs/Day [...] Recorded What is your housing situation today? I have marko rene 02/04/[address] you li ve. Do you have problems with any of the following? None of the above 02/04/2025 Food Insecurity Answer Date Recorded Within the [...] Sign Reading Time Taken Comments Blood Pressure 138/78 02/06/2025 11:03 AM EST Pulse 100 02/06/2025 10:08 AM EST Temperature 36.9 C (98.4 F) 02/06/2025 10:08 AM EST Respiratory Rate 16 02/06/2025 10:08 AM EST Oxygen Saturation 99% 02/06/2025 10:08 AM EST Inhaled Oxygen Concentration - - Weight 84.9 kg (187 lb 2 oz) 02/06/2025 10:08 AM EST Height 167.6 cm (5' 6 ) 02/06/2025 10:08 AM EST Body Mass Index 30.2 02/06/2025 10:08 AM EST documented in this encounter Plan of Treatment Upcoming Encounters Date Type Department Care Team (Late st Contact Info) Description 02/15/2025 1:00 PM EST Clinical Support [facility] [address] [place] [phone] 03/13/2025 4:00 PM EST Telemedicine [facility] [address] [place] [phone] Roxie Aguirre ANP [address] [place] [address] Scheduled Orders Name Type Priority Associated Diagnoses Orde r Schedule PTH, INTACT Lab Routine Hypophosphatemia Expected: 02/06/2025 (Approximate), Expires: 02/06/2026 documented as of this encounter Visit Diagnoses Diagnosis Hypophosphatemia- Primary Disorders of phosphorus metabolism Anxiety Anxiety state, unspecified documented in this encounter Additional Health Concerns Assessment Noted Time PHQ-9 Depression Total Score: 4 01/31/20 25 4:04 PM EST documented as of this encounter Care Teams Monotypist Relationship Specialty Start Date End Date Roxie Aguirre ANP [address] [place] [address] PCP - General Family Medicine 12/22/20 documented as of this encounter
--- OUTSIDE RECORDS SUMMARY | 2025-02-07 18:29 | XMS_ITS | Encounter Summary ---
Author Organization [employer] Address [address] [place] [address] [address] [place] [address] Care Team Providers Care Law Office Manager Name Role Phone Roxie Aguirre Primary Care Provider [phone] Encounter Details Date Type Department Care Team ([facility] st Contact Info) Description 01/31/2025 Results Follow-Up [facility] [address] [place] [address] Roxie Aguirre ANP [address] [place] [address] Basic Metabolic Panel, TSH W/Reflex to FT4, [...] Description 02/15/2025 1:00 PM EST Clinical Support [facility] [address] [place] [address] 03/13/2025 4:00 PM EST Telemedicine [facility] [address] [place] [address] Roxie Aguirre ANP [address] [place] [address] documented as of this encounter Procedures Procedure Name Priority Date/Time Associated Diagnosis Comments VITAMIN D,25-OH,TOTAL,IA Routine 01/31/2025 1:46 PM EST Hypercalcemia documented in this encounter Results * (ABNORMAL) Vitamin D, 25-Hydroxy, Total, Immunoassay (01/31/2025 1:46 PM EST) Vitamin D 25-OH Total 27.3(L) >30 ng/mL [facility] Comment: Health Based Reference Values*< 20 ng/mL Qsvzucace72-42 ng/mL Insufficient> 30 ng/mL Sufficient*Azul LOPEZ. N [...] CAMP[facility] LAB BLOOD ORDERABLES Final Resul t [facility] [address] [place] [phone] documented in this encounter Visit Diagnoses Diagnosis Hypercalcemia- Primary documented in this encounter Additional Health Concerns Assessment Noted Time PHQ-9 Depression Total Score: 4 01/31/20 25 4:04 PM EST documented as of this encounter Care Teams Law Office Manager Relationship Specialty Start Date End Date Roxie Aguirre ANP [address] [place] [address] PCP - General Family Medicine 12/22/20 documented as of this encounter
--- OUTSIDE RECORDS SUMMARY | 2025-02-07 18:29 | XMS_ITS | Encounter Summary ---
Author Organization [employer] Address [address] [place] [address] [place] [address] Care Team Providers Care Health Spa Manager Name Role Phone Roxie Aguirre Primary Care Provider [phone] Reason for Visit * Reason Comments Transition Of Care (Tcm) HDF- Unschedule d (Message sent to team nurses) and SDOH screening negative and Tobacco screening negative Encounter Details Date Type Department Care Team ([facility] st Contact Info) Description 02/04/2025 Patient Outreach [facility] MED[facility]INE [address] [place] [address] Roxie Aguirre ANP [address] [place] [address] Transition Of Care (Tcm) (HDF- Unscheduled (Message [...] ED visit on : Date: 01/01-01/03 Hospital: [facility] Seen for: accelerating heart beat, hypertension Symptomatic No *if yes message should go to Triage Patient advised will forward to team nurse for follow up Contact pt at [phone] ED reported to make an apt immediately [...] 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 Inquired how his lexapro that he started [...] of Admission/Visit 02/01/25 Date of Discharge 02/03/25 [facility] Diagnosis Hypophosphatemia Disposition Discharged Home Follow-Up [...] 02/15/2025 1:00 PM EST Clinical Support [facility] [address] [place] [address] 03/13/2025 4:00 PM EST Telemedicine [facility] [address] [place] [address] Roxie Aguirre ANP [address] [place] [address] documented as of this encounter Visit Diagnoses Not on filedocumented in this encounter Additional Health Concerns Assessment Noted Time PHQ-9 Depression Total Score: 4 01/31/20 25 4:04 PM EST documented as of this encounter Care Teams Health Spa Manager Relationship Specialty Start Date End Date Roxie Aguirre ANP [address] [place] [address] PCP - General Family Medicine 12/22/20 documented as of this encounter
--- OUTSIDE RECORDS SUMMARY | 2025-02-07 18:29 | XMS_ITS | Encounter Summary ---
Author Organization [employer] Address [address] [place] [address] 7 [place] [address] Care Team Providers Care Chief Of Safety And Protection Name Role Phone Roxie Aguirre Primary Care Provider [phone] Encounter Details Date Type Department Care Team (Latest Contact Info) Description 02/01/2025 Results Follow-Up [facility] MEDICINE [address] [place] [address] Roxie Aguirre ANP 230 [place] [address] CBC auto differential, High Sensitivity Troponin I, [...] Description 02/15/2025 1:00 PM EST Clinical Support [facility]INE [address] [place] [address] 03/13/2025 4:00 PM EST Telemedicine [facility] [address] [place] [address] Roxie Aguirre ANP [address] [place] [address] documented as of this encounter Visit Diagnoses Not on filedocumented in this encounter Additional Health Concerns Assessment Noted Time PHQ-9 Depression Total Score: 4 01/31/20 25 4:04 PM EST documented as of this encounter Care Teams Chief Of Safety And Protection Relationship Specialty Start Date End Date Roxie Aguirre ANP [address] [place] [address] PCP - General Family Medicine 12/22/20 documented as of this encounter
--- OUTSIDE RECORDS SUMMARY | 2025-02-07 18:29 | XMS_ITS | Encounter Summary ---
Author Organization [employer] Address [address] [place] [address] [place] [address] Care Team Providers Care Fence Rider Name Role Phone Roxie Aguirre Primary Care Provider [phone] Reason for Visit * Reason Onset Date Comments Chart Prep 02/05/2025 Encounter Details Date Type Department Care Team ([facility] Contact Info) Description 02/05/2025 Telephone [facility] MEDICINE [address] [place] [address] Yeny Fenton FNP 230 [place] [address] Chart Prep Social History Tobacco Use Types [...] Description 02/15/2025 1:00 PM EST Clinical Support [address] [address] 03/13/2025 4:00 PM EST Telemedicine [address] [address] Roxie Aguirre ANP 230 [place] [address] documented as of this encounter Visit Diagnoses Not on filedocumented in this encounter Additional Health Concerns Assessment Noted Time PHQ-9 Depression Total Score: 4 01/31/20 4:04 PM EST documented as of this encounter Care Teams Fence Rider Relationship Specialty Start Date End Date Roxie Aguirre ANP [address] [place] [address] PCP - General Family Medicine 12/22/20 documented as of this encounter
--- OUTSIDE RECORDS SUMMARY | 2025-02-07 18:29 | XMS_ITS | Encounter Summary ---
Author Organization [employer] Address [address] [place] [address] 7 [place] [address] Care Team Providers Care Truckload Owner Operator Name Role Phone Roxie Aguirre Primary Care Provider [phone] Encounter Details Date Type Department Care Team ([facility] Contact Info) Description 01/30/[address] [facility] MEDICINE [address] [place] [address] Roxie Aguirre ANP 230 [place] [address] Social History Tobacco Use Types Packs/Day Years [...] caller accepted this outcome. Contact pt at [phone] documented in this encounter Plan of Treatment Upcoming Encounters Date Type Department Care Team ([facility] st Contact Info) Description 02/15/2025 1:00 PM EST Clinical Support [address] [address] 03/13/2025 4:00 PM EST Telemedicine [address] [address] Roxie Aguirre ANP [address] [place] [address] documented as of this encounter Visit Diagnoses Not on filedocumented in this encounter Additional Health Concerns Assessment Noted Time PHQ-9 Depression Total Score: 4 01/31/20 25 4:04 PM EST documented as of this encounter Care Teams Truckload Owner Operator Relationship Specialty Start Date End Date Roxie Aguirre ANP [address] [place] [address] PCP - General Family Medicine 12/22/20 documented as of this encounter
--- OUTSIDE RECORDS SUMMARY | 2025-02-07 18:29 | XMS_ITS | Encounter Summary ---
Author Organization [employer] Address [address] [place] [address] 7 [place] [address] Care Team Providers Care Magician/Illusionist Name Role Phone Timothy Roxie CAMPOS Primary Care Provider [phone] Encounter Details Date Type Department Care Team [...] Description 02/15/2025 1:00 PM EST Clinical Support [address] [address] 03/13/2025 4:00 PM EST Telemedicine [address] [address] Roxie Aguirre ANP 230 [place] [address] documented as of this encounter Visit Diagnoses Not on filedocumented in this encounter Additional Health Concerns Assessment Noted Time PHQ-9 Depression Total Score: 4 01/31/20 25 4:04 PM EST documented as of this encounter Care Teams Magician/Illusionist Relationship Specialty Start Date End Date Roxie Aguirre ANP [address] [place] [address] PCP - General Family Medicine 12/22/20 documented as of this encounter
--- OUTSIDE RECORDS SUMMARY | 2025-02-07 18:29 | XMS_ITS | Encounter Summary ---
Author Organization [employer] Address [address] [place] [address] [place] [address] Care Team Providers Care Flight Attendant/Inflight Manager Name Role Phone Roxie Aguirre Primary Care Provider [phone] Reason for Visit * Reason Onset Date Comments ER Follow-up 02/04/2025 Encounter Details Date Type Department Care Team ([facility] st Contact Info) Description 02/04/2025 Telephone [facility] MEDICINE [address] [place] [address] Roxie Aguirre ANP [address] [place] [address] ER Follow-up Social History Tobacco Use Types [...] ED visit on : Date: 01/01-01/03 Hospital: [facility] Seen for: accelerating heart beat, hypertension Symptomatic No *if yes message should go to Triage Patient advised will forward to team nurse for follow up Contact pt at [phone] ED reported to make an apt immediately due to the medication that was discontiued and the medications that needs to be changed. documented in this encounter Plan of Treatment Upcoming Encounters Date Type Department Care Team (Late st Contact Info) Description 02/15/2025 1:00 PM EST Clinical Support [facility] MEDICINE [address] [place] [address] 03/13/2025 4:00 PM EST Telemedicine [facility] MEDICINE [address] [place] [address] Roxie Aguirre, ANP [address] [place] [address] documented as of this encounter Visit Diagnoses Not on filedocumented in this encounter Additional Health Concerns Assessment Noted Time PHQ-9 Depression Total Score: 4 01/31/20 25 4:04 PM EST documented as of this encounter Care Teams Flight Attendant/Inflight Manager Relationship Specialty Start Date End Date Roxie Aguirre ANP [address] [place] [address] PCP - General Family Medicine 12/22/20 documented as of this encounter
--- OUTSIDE RECORDS SUMMARY | 2025-02-07 18:29 | XMS_ITS | Encounter Summary ---
Author Organization [employer] Address [address] [place] [address] 7 [place] [address] Care Team Providers Care Card Reader Name Role Phone Roxie Aguirre Primary Care Provider [phone] Encounter Details Date Type Department Care Team ([facility] st Contact Info) Description 02/04/2025 Orders Only [facility] MEDICINE [address] [place] [address] Roxie Aguirre ANP [address] [place] [address] Hypophosphatemia (Primary Dx); Diarrhea, unspecified type Social [...] Description 02/15/2025 1:00 PM EST Clinical Support [facility] MEDICINE [address] [place] [address] 03/13/2025 4:00 PM EST Telemedicine [address] [address] Roxie Aguirre ANP [address] [place] [address] Scheduled Orders Name Type Priority Associated Diagnoses [...] EST) Sodium 141 135 - 145 mmol/L [facility] Potassium 4.2 3.3 - 5.1 mmol/L [facility] Chloride 107 96 - 108 mmol/L [facility] Carbon Dioxide 26 22 - 29 mmol/L [facility] Anion Gap 12 12 - 20 [facility] Urea Nitrogen (BUN) 11 9 - 16 mg/dL [facility] Creatinine, Serum 0.90 0.5 - 1.4 mg/dL [facility] Estimated Glomerular Filt Rate >60 [facility] Comment:Chronic Kidney Disea se: Estimated GFR < 60 mL/min/1.59b3Apyvxm Kidney Disease: Estimated GFR < 15 mL/min/1.73m2 Glucose 103 60 - 115 mg/dL [facility] Calcium 9.7 8.4 - 10.2 mg/dL [facility] Blood Venous blood specimen / Unknown 02/06/2025 11:29 AM EST 02/06/2025 12:52 PM EST Roxie CAMPOS LAB BLOOD ORDERABLES Final Resul t [facility] [address] [place] [phone] documented in this encounter Visit Diagnoses Diagnosis Hypophosphatemia- Primary Disorders of phosphorus metabolism Diarrhea, unspecified type documented in this encounter Additional Health Concerns Assessment Noted Time PHQ-9 Depression Total Score: 4 01/31/20 25 4:04 PM EST documented as of this encounter Care Teams Card Reader Relationship Specialty Start Date End Date Roxie Aguirre ANP [address] [place] [address] PCP - General Family Medicine 12/22/20 documented as of this encounter
--- OUTSIDE RECORDS SUMMARY | 2025-02-07 18:29 | XMS_ITS | Encounter Summary ---
Author Organization [employer] Address [address] [place] [address] 7 [place] [address] Care Team Providers Care Knitter Operator Name Role Phone Roxie Aguirre Primary Care Provider [phone] Encounter Details Date Type Department Care Team ([facility] st Contact Info) Description 02/06/2025 Orders Only [facility] MEDICINE [address] [place] [address] Roxie Aguirre ANP 230 [place] [address] Diarrhea, unspecified type (Primary Dx) Social History [...] now. Needs stool studies. None located in [employer]. Spoke w/ pt. Not feeling well. Labs [...] Description 02/15/2025 1:00 PM EST Clinical Support [facility] MEDICINE [address] [place] [address] 03/13/2025 4:00 PM EST Telemedicine [facility] MED[facility]INE [address] [place] [address] Roxie Aguirre ANP [address] [place] [address] Scheduled Orders Name Type Priority Associated Diagnoses [...] documented as of this encounter Care Teams Knitter Operator Relationship Specialty Start Date End Date Roxie Aguirre ANP [address] [place] [address] PCP - General Family Medicine 12/22/20 documented as of this encounter
--- OUTSIDE RECORDS SUMMARY | 2025-02-07 18:29 | XMS_ITS | Encounter Summary ---
Author Organization [employer] Address [address] [place] [address] 7 [place] [address] Care Team Providers Care Over Short And Damage Clerk Name Role Phone Roxie Aguirre Primary Care Provider [phone] Encounter Details Date Type Department Care Team ([facility] st Contact Info) Description 02/06/2025 Results Follow-Up [facility] MEDICINE [address] [place] [address] Roxie Aguirre ANP [address] [place] [address] Basic Metabolic Panel, Fasting, Phosphate (As Phosphorus), PTH, Intact Without Calcium Social History Tobacco Use Types Packs/Day Years [...] Result Encounter Note - BETH Hernandez - 02/06/2025 3:00 PM EST Cornelio Gunter, These results are all fine thankfully. Hopefully you've gotten the letter I sent via [employer] for work through 02/15 but if not, please let me know and I will print or re-send. Please call our office if you have any questions. Por favor llame a la oficina si tiene preguntas. Take care, Cu??Roxie benites X [employer] EQUIPMENT REPAIRER documented in this encounter Plan of Treatment Upcoming Encounters Date Type Department Care Team (Late st Contact Info) Description 02/15/2025 1:00 PM EST Clinical Support [facility] MEDICINE [address] [place] [address] 03/13/2025 4:00 PM EST Telemedicine [facility] MEDICINE [address] [place] [address] Roxie Aguirre ANP [address] [place] [address] documented as of this encounter Visit Diagnoses Not on filedocumented in this encounter Additional Health Concerns Assessment Noted Time PHQ-9 Depression Total Score: 4 01/31/20 25 4:04 PM EST documented as of this encounter Care Teams Over Short And Damage Clerk Relationship Specialty Start Date End Date Roxie Aguirre ANP [address] [place] [address] PCP - General Family Medicine 12/22/20 documented as of this encounter
--- OUTSIDE RECORDS SUMMARY | 2025-02-07 18:29 | XMS_ITS | Clinical Summary ---
Author Organization [employer] Address [address] [place] [address] 7 [place] [address] Care Team Providers Care Electrochemist Name Role Phone Timothy Roxie CAMPOS Primary Care Provider [phone] Allergies No known active allergies Medications * [...] 25 Active ergocalciferol (Vitamin D2) 1.25 MG (58359 UT) capsule Take 1,250 mcg by mouth [...] Description 02/06/2025 10:00 AM EST Office Visit [facility] [address] [place] [phone] Yeny Fenton FNP Hypophosphatemia (Primary Dx); Anxiety 02/06/2025 Results Follow-Up [address] [facility] [place] [address] Roxie Aguirre ANP Basic Metabolic Panel, Fasting, Phosphate (As Phosphorus), PTH, Intact Without Calcium 02/06/2025 Orders Only [address] [address] Roxie Aguirre ANP 02/06/2025 Orders Only [address] [address] Roxie Aguirre ANP Diarrhea, unspecified type (Primary Dx) 02/06/2025 Travel 02/05/2025 [address]phone [address] [facility] [place] [phone] Yeny Fenton FNP Chart Prep 02/04/2025 Orders Only [address] [address] Roxie Aguirre ANP Hypophosphatemia (Primary Dx); Diarrhea, unspecified type 02/04/2025 Patient Outreach [facility] [place] [address] Roxie Aguirre ANP Transition Of Care (Tcm) (HDF- Unscheduled (Message sent to team nurses) and SDOH screening negative and Tobacco screening negative) 02/04/2025 Telephone [facility] [place] [address] Roxie Aguirre ANP ER Follow-up 02/01/2025 Results Follow-Up [address] [address] Roxie Aguirre ANP CBC auto differential, High Sensitivity Troponin I, Comprehensive Metabolic Panel, Additional followed-up results: 2 02/01/2025 Orders Only GENERIC EXTERNAL DATA DEPARTMENT Provider, Generic External Data 01/31/2025 11:15 AM EST Office Visit [facility] [place] [address] Roxie Aguirre ANP Essential hypertension (Primary Dx); Anxiety; Dietary counseling; Exercise counseling; Compression fracture of lumbar vertebra, unspecified lumbar vertebral level, sequela; Mild intermittent reactive airway disease without complication; Witnessed episode of apnea 01/31/2025 Results Follow-Up [facility] [address] [place] [address] Roxie Aguirre ANP Basic Metabolic Panel, TSH W/Reflex to FT4, Hemoglobin A1c 01/30/2025 4:00 PM EST Office Visit [facility] [address] [place] [address] Stephanie Jerez MD Essential hypertension (Primary Dx); Depression with anxiety; Anxiety 01/30/2025 Travel 01/30/2025 Telephone [facility] [address] [place] [address] Roxie Aguirre ANP 01/25/2025 Telephone [facility] [address] [place] [address] Roxie Aguirre ANP Nurse Triage from Last [...] Description 02/15/2025 1:00 PM EST Clinical Support [facility] [address] [place] [address] 03/13/2025 4:00 PM EST Telemedicine [facility] [address] [place] [address] Roxie Aguirre, BETH [address] [place] [address] Health Maintenance Due Date Last Done Comments Lipid Panel 1997 Family Planning (PISQ) 2012 HPV Vaccines (1 - Male 3-dose series) 2012 Hepatitis C Screening 07/28/2015 Hepatitis A Vaccines (2 of 2 - 2-dose series) 12/10/2015 06/09/2015 Hepatitis B Vaccines (1 of 3 - 19+ 3-dose series) 2016 Pneumococcal Vaccine: Pediatrics (0 to 5 Years) and At-Risk Patients (6 to 49) Years (1 of 2 - PCV) 2016 COVID-19 Vaccine (3 - 2024- season) 2024 01/23/2021, 12/30/2020 Influenza Vaccine (#1) 2024 , 01/05/2020, 01/07/2019, Additional history exists Depression Screening 01/30/2026 01/30/2025, 01/31/20 Alcohol/Substance Use Screening 01/31/2026 01/31/2025 SDOH Screening [...] Procedure Name Priority Date/Time Associated Diagnosis Comments PTH, INTACT WITHOUT CALCIUM Routine 02/06/2025 11:29 AM EST PHOSPHATE ( [...] Glucose Fasting 103(H) 60 - 99 mg/dL [facility] Comment:A fasting glucose fr om 100-125 mg/dl is considered impaired(pre-diabetes). 02/06/2025 11:2 9 AM EST 02/06/2025 12:52 PM EST Generic External Data Provider LAB BLOOD ORDERAB LES Final Result Performing Organization Address [facility] Co de Phone Number [facility] [address] [place] [phone] * Phosphate (As Phosphorus) (02/06/2025 11:29 AM EST) Only the most recent of2 resultswithin the time period is included. Phosphorus 2.9 2.7 - 4.5 mg/dL [facility] 02/06/2025 11:2 9 AM EST 02/06/2025 12:52 PM EST Generic External Data Provider LAB BLOOD ORDERAB LES Final Result Performing Organization Address [facility] Co de Phone Number [facility] [address] [place] [phone] * PTH, Intact Without Calcium (02/06/2025 11:29 AM EST) Parathyroid Hormone, Intact 54.1 8.7 - 77.1 pg/mL [facility] 02/06/2025 11:2 9 AM EST 02/06/2025 12:52 PM EST us Generic External Data Provider LAB BLOOD ORDERAB LES Final Result Performing Organization Address [facility] Co de Phone Number [facility] [address] [place] [phone] * Basic Metabolic Panel (02/06/2025 11:29 AM EST) Only the most recent of2 resultswithin the time period is included. Sodium 141 135 - 145 mmol/L [facility] Potassium 4.2 3.3 - 5.1 mmol/L [facility] Chloride 107 96 - 108 mmol/L [facility] Carbon Dioxide 26 22 - 29 mmol/L [facility] Anion Gap 12 12 - 20 [facility] Urea Nitrogen (BUN) 11 9 - 16 mg/dL [facility] Creatinine, Serum 0.90 0.5 - 1.4 mg/dL [facility] Estimated Glomerular Filt Rate >60 [facility] Comment:Chronic Kidney Disea se: Estimated GFR < 60 mL/min/1.69j1Moqpeu Kidney Disease: Estimated GFR < 15 mL/min/1.73m2 Glucose 103 60 - 115 mg/dL [facility] Calcium 9.7 8.4 - 10.2 mg/dL [facility] Blood Venous blood specimen / Unknown 02/06/2025 11:29 AM EST 02/06/2025 12:52 PM EST [facility] Health system LAB BLOOD ORDERABLES Final Resul t Performing Organization Address City/[facility]/ZIP Co de Phone Number [facility] [address] [place] [address] [phone] * Blood gas, arterial (02/01/2025 6:56 PM EST) ABG pH 7.43 7.35 - 7.45 [facility] Comment:METER #: [id number] additional_comment: Cb wojtass ctrbb jesin ABG PCO2 35 32 - 45 mmHg [facility] Comment:METER #: [id number] additional_comment: Román smith jesin ABG PO2 87 83 - 108 mmHg [facility] Comment:METER #: [id number] additional_comment: Román huntbb jesin ABG Base Excess 0.3 mmol/L [facility] Comment:METER #: [id number] additional_comment: Román huntbb jesin ABG HCO3 24 22 - 26 mmol/L [facility] Comment:METER #: [id number] additional_comment: Román huntbb jesin ABG Oxygen Saturation 98.0 % [facility] Comment:METER #: [id number] additional_comment: Román garcia 02/01/2025 6:56 PM EST 02/01/2025 7:00 PM EST us Generic External Data Provider LAB BLOOD ORDERAB LES Final Result Performing Organization Address [facility] de Phone Number [facility] [address] [place] [phone] * High Sensitivity Troponin I (02/01/2025 6:36 PM EST) Only the most recent of2 resultswithin the time period is included. TROPONIN I HIGH SENSITIVITY <2.7 <3.5 - 35.0 ng/L [facility] Comment:The Wolf high sens itivity Troponin-I results should beused in conjunction with other diagnostic information suchas ECG, clinical observations and information, and patientsymptoms to aid in the diagnosis of [place]. 02/01/2025 6:36 PM EST 02/01/2025 6:38 PM EST us Generic External Data Provider LAB BLOOD ORDERAB LES Final Result Performing Organization Address [facility] Co de Phone Number [facility] [address] [place] [phone] * Urinalysis with Reflex to Microscopic (02/01/2025 6:36 PM EST) Color Urine Yellow [facility] Appearance Urine Clear [facility] PH 7.5 5.0 - 9.0 [facility] Glucose Urine UA Negative Negative mg/dL [facility] Urine Blood Negative Negative [facility] Specific [place] - Urine 1.010 1.005 - 1.025 [facility] Urine Protein Negative Neg-Trace mg/dL [facility] Urine Ketones 80 Negative mg/dL [facility] Nitrite Urine Negative Negative [facility] Leukocyte Esterase Urine Negative Negative [facility] 02/01/2025 6:36 PM EST 02/01/2025 6:38 PM EST Generic External Data Provider LAB URINE ORDERAB LES Final Result Performing Organization Address [facility]/ZIP Co de Phone Number [facility] [address] [place] [phone] * Urine electrolytes (02/01/2025 6:36 PM EST) Chloride Urine Random 95.0 mmol/L [facility] Sodium Urine Random 99.0 mmol/L [facility] Potassium Urine Random 40.3 mmol/L [facility] 02/01/2025 6:36 PM EST 02/01/2025 6:38 PM EST us Generic External Data Provider LAB URINE ORDERAB LES Final Result Performing Organization Address City/[facility]/ZIP Co de Phone Number [facility] [address] [place] [phone] * Phosphorus, urine, random (02/01/2025 6:36 PM EST) Phosphate, Random Urine 14.2 mg/dL [facility] 02/01/2025 6:36 PM EST 02/01/2025 6:38 PM EST us Generic External Data Provider LAB URINE ORDERAB LES Final Result Performing Organization Address City/[facility]/ZIP Co de Phone Number [facility] [address] [place] [phone] * Creatinine, Random Urine (02/01/2025 6:36 PM EST) Creatinine, Urine 84.02 mg/dL [facility] 02/01/2025 6:36 PM EST 02/01/2025 6:38 PM EST Generic External Data Provider LAB URINE ORDERAB LES Final Result Performing Organization Address [facility] Co de Phone Number [facility] [address] [place] [phone] * (ABNORMAL) CBC auto differential (02/01/2025 3:31 PM EST) White Blood Count 12.7(H) 4.8 - 10.8 X10*3/uL [facility] Red Blood Count 5.87(H) 4.60 - 5.80 X10*6/uL [facility] Hemoglobin 17.5 14.0 - 18.0 g/dl [facility] Hematocrit 48.1 42.0 - 52.0 % [facility] Mean Corpuscular Volume 81.9 80.0 - 98.0 fL [facility] Mean Corpuscular Hemoglobin 29.8 27.0 - 33.0 pg [facility] Mean Corpuscular HGB Conc 36.4(H) 31.0 - 36.0 g/dl [facility] Red Cell Distribution Width 11.7 11.0 - 16.0 % [facility] Platelet Count 438(H) 160 - 400 X10*3/uL [facility] Mean Platelet Volume 9.6 9.4 - 12.4 fL [facility] Neutrophils Percent Auto 78.0(H) 45 - 73 % [facility] Imm Gran Pct Auto 0.3 0.0 - 0.4 % [facility] Lymphocytes Percent Auto 13.8(L) 20 - 40 % [facility] Monocytes Percent Auto 7.0 2 - 11 % [facility] Eosinophils Percent Auto 0.2 0 - 4 % [facility] Basophils Percent Auto 0.7 0 - 2 % [facility] NRBC Pct Auto 0.0 0.0 - 0.2 /100WBC [facility] Neutrophils Absolute Auto 9.9(H) 2.0 - 8.3 x10*3/uL [facility] Imm Gran Abs Auto 0.04(H) 0.00 - 0.03 X10*3/uL [facility] Lymphocytes Absolute Auto 1.8 1.2 - 4.9 X10*3/uL [facility] Monocytes Absolute Auto 0.9 0.1 - 1.2 X10*3/uL [facility] Eosinophils Absolute Auto 0.0 0.0 - 0.4 X10*3/uL [facility] Basophils Absolute Auto 0.1 0.0 - 0.2 X10*3/uL [facility] NRBC Abs Auto 0.000 0.0 - 0.012 X10*3/uL [facility] 02/01/2025 3:31 PM EST 02/01/2025 3:38 PM EST us Generic External Data Provider LAB BLOOD ORDERAB LES Final Result Performing Organization Address City/[facility]/ZIP Co de Phone Number [facility] [address] [place] [phone] * Magnesium (02/01/2025 3:31 PM EST) Magnesium 1.8 1.6 - 2.6 mg/dL [facility] 02/01/2025 3:31 PM EST 02/01/2025 3:38 PM EST Generic External Data Provider LAB BLOOD ORDERAB LES Final Result Performing Organization Address [facility] Co de Phone Number [facility] [address] [place] [phone] * (ABNORMAL) Comprehensive Metabolic Panel (02/01/2025 3:31 PM EST) Sodium 136 135 - 145 mmol/L [facility] Potassium 3.4 3.3 - 5.1 mmol/L [facility] Chloride 101 96 - 108 mmol/L [facility] Carbon Dioxide 21(L) 22 - 29 mmol/L [facility] Anion Gap 17 12 - 20 [facility] Urea Nitrogen (BUN) 12 9 - 16 mg/dL [facility] Creatinine, Serum 0.90 0.5 - 1.4 mg/dL [facility] Creatinine Clr Calc Pharmacy 128.0 [facility] Comment:eGFR (calculated fro m the MDRD study equation) and eCrCl(calculated from the Cockcroft-Gault equation) are based ondifferent parameters and may not yield comparable results.If eCrCl result is absurd, please check patient'sheight/weight. Estimated Glomerular Filt Rate >60 [facility] Comment:Chronic Kidney Disea se: Estimated GFR < 60 mL/min/1.76a9Murgjf Kidney Disease: Estimated GFR < 15 mL/min/1.73m2 Glucose 118(H) 60 - 115 mg/dL [facility] Calcium 10.1 8.4 - 10.2 mg/dL [facility] Bilirubin, Total 0.9 0.0 - 1.0 mg/dL [facility] Aspartate Amino Transferase 34 5 - 37 U/L [facility] Alanine Aminotransferase 72(H) 0 - 40 U/L [facility] Total Protein 8.2(H) 6.5 - 8.0 g/dL [facility] Albumin Level 5.4(H) 3.5 - 5.0 g/dL [facility] Alkaline Phosphatase 57 39 - 117 U/L [facility] 02/01/2025 3:31 PM EST 02/01/2025 3:38 PM EST us Generic External Data Provider LAB BLOOD ORDERAB LES Final Result Performing Organization Address City/[facility]/ZIP Co de Phone Number [facility] [address] [place] [phone] [phone] * (ABNORMAL) Vitamin D, 25-Hydroxy, Total, Immunoassay (01/31/2025 1:46 PM EST) Vitamin D 25-OH Total 27.3(L) >30 ng/mL [facility] Comment: Health Based Reference Values*< 20 ng/mL Pugikjjbw60-38 ng/mL Insufficient> 30 ng/mL Sufficient*Azul LOPEZ. N [...] 1:46 PM EST 01/31/2025 6:11 PM EST [facility] LAB BLOOD ORDERABLES Final Resul t Performing Organization Address [facility]/ZIP Co de Phone Number [facility] [address] [place] [phone] * TSH W/Reflex to FT4 (01/31/2025 1:46 PM EST) TSH reflex Free T4 1.01 0.32 - 4.0 uIU/mL [facility] Blood Venous blood specimen / Unknown 01/31/2025 1:46 PM EST 01/31/2025 3:59 PM EST Roxie Aguirre [facility] LAB BLOOD ORDERABLES Final Resul t Performing Organization Address City/[facility]/ZIP Co de Phone Number [facility] [address] [place] [phone] * Hemoglobin A1c (01/31/2025 1:46 PM EST) Hemoglobin A1c 5.2 <6.0 % [facility] Comment:Hemoglobin A1C Refer ence Range Adults: 4.8 - 6.0 % Non diabetic: < 6.0 % Goal: < 7.0 %Additional Action Suggested: > 8.0 %Note: Hemoglobin A1c results are invalid for patients with abnormal amounts of HbF. Blood transfusions may impact the HbA1c concentration in the patient sample. Estimated Average Glucose 103 mg/dL [facility] Comment:eAG = Estimated ave rage glucose which is %A1C expressed asaverage glucose, using the formula of the H0L-WeihbqyAzdkxoe Glucose study (ADAG), Diabetes Care, Vol.31,#8,Oct. 2007 Blood Venous blood specimen / Unknown 01/31/2025 1:46 PM EST 01/31/2025 3:59 PM EST Roxie Aguirre [facility] LAB BLOOD ORDERABLES Final Resul t Performing Organization Address [facility]/ZIP Co de Phone Number [facility] [address] [place] [phone] * HIV-1/2 Antigen and Antibodies, Fourth Generation, with Reflexes (04/06/2022 1:49 PM EST) HIV Antigen/Antibody, 4th Generation NON-REAC TIVE NON-REAC TIVE [employer] [facility] [employer] Comment: HIV-1 antigen and HIV-1/HIV-2 antibodies were [...] purpose. For additional information please refer to http://education.[employer].com/faq/NDM908 (This link is being provided for informational/ educational purposes only.) The performance of this assay has not been clinically validated in patients less than 2 years old. 04/06/2022 1:49 PM EST 04/06/2022 1:50 PM EST [facility] LAB BLOOD ORDERABLES Final Resul t [facility] [address], [place] [address] [employer] [facility] [address] [facility], (Nl2) [place] [address] from Last 3 Months or Most Recently Relevant to Health Maintenance Insurance [employer] P[employer] Care Teams Electrochemist Relationship Specialty Start Date End Date Roxie Aguirre ANP [address] [place] [phone] PCP - General Family Medicine 12/22/20
--- OUTSIDE RECORDS SUMMARY | 2025-02-07 18:29 | XMS_ITS | Encounter Summary ---
Author Organization [employer] Address [address] [place] [address] Care Team Providers Care Honing Job Setter Name Role Phone Roxie Aguirre Primary Care Provider [phone] Reason for Visit * Reason Onset Date Comments Med Refill 10/06/2022 Encounter Details Date Type Department Care Team ([facility] st Contact Info) Description 10/06/2022 Telephone [facility] [address] [place] [address] Roxie Aguirre ANP [address] [place] [address] Med Refill Social History Tobacco Use Types [...] Description 02/15/2025 1:00 PM EST Clinical Support [address] [address] 03/13/2025 4:00 PM EST Telemedicine [address] [address] Roxie Aguirre ANP [address] [place] [address] documented as of this encounter Visit Diagnoses Not on filedocumented in this encounter Care Teams Honing Job Setter Relationship Specialty Start Date End Date Roxie Aguirre ANP [address] [place] [address] PCP - General Family Medicine 12/22/20 documented as of this encounter
--- OUTSIDE RECORDS SUMMARY | 2025-02-07 18:29 | XMS_ITS | Clinical Summary ---
Author Organization [facility] Address [address] [place] [address] Care Team Providers Care Trench Digging Machine Operator Name Role Phone [facility] Primary Care Provider [phone] Allergies No known active allergies Active Problems [...] patient's age to complete this topic Insurance [facility] Care Teams Trench Digging Machine Operator Relationship Specialty Start Date End Date [address] [address] PCP - General 05/25/23
--- OUTSIDE RECORDS SUMMARY | 2025-02-07 18:29 | XMS_ITS | Encounter Summary ---
Author Organization [employer] Address [address] [place] [address] [address] [place] [address] Care Team Providers Care Field Service Technician Poultry Name Role Phone Roxie Aguirre Primary Care Provider [phone] Encounter Details Date Type Department Care Team ([facility] st Contact Info) Description 02/06/2025 Orders Only [facility] [address] [place] [address] Roxie Aguirre ANP [address] [place] [address] Social History Tobacco Use Types Packs/Day Years [...] Support [facility] [address] [place] [phone] 03/13/2025 4:00 PM EST Telemedicine [facility] [address] [place] [phone] Roxie Aguirre, ANP [address] [place] [address] documented as of this encounter Procedures Procedure Name Priority Date/Time Associated Diagnosis Comments BASIC METABOLIC PANEL, FASTING Routine 02/06/2025 11:29 AM EST PHOSPHATE ( PHOSPHORUS) Routine 02/06/2025 11:29 AM EST PTH, INTACT WITHOUT CALCIUM Routine 02/06/2025 11:29 AM EST documented in this encounter Results * PTH, Intact Without Calcium (02/06/2025 11:29 AM EST) Parathyroid Hormone, Intact 54.1 8.7 - 77.1 pg/mL [facility] 02/06/2025 11:2 9 AM EST 02/06/2025 12:52 PM EST us Generic External Data Provider LAB BLOOD ORDERAB LES Final Result Performing Organization Address [facility] Co de Phone Number [facility] [address] [place] [phone] * Phosphate (As Phosphorus) (02/06/2025 11:29 AM EST) Phosphorus 2.9 2.7 - 4.5 mg/dL [facility] 02/06/2025 11:2 9 AM EST 02/06/2025 12:52 PM EST us Generic External Data Provider LAB BLOOD ORDERAB LES Final Result Performing Organization Address [facility] Phone Number [facility] [address] [place] [phone] * (ABNORMAL) Basic Metabolic Panel, Fasting (02/06/2025 11:29 AM EST) Glucose Fasting 103(H) 60 - 99 mg/dL [facility] Comment:A fasting glucose fr om 100-125 mg/dl is considered impaired(pre-diabetes). 02/06/2025 11:2 9 AM EST 02/06/2025 12:52 PM EST Generic External Data Provider LAB BLOOD ORDERAB LES Final Result Performing Organization Address [facility] de Phone Number [facility] [address] [place] [phone] documented in this encounter Visit Diagnoses Not on filedocumented in this encounter Additional Health Concerns Assessment Noted Time PHQ-9 Depression Total Score: 4 01/31/20 25 4:04 PM EST documented as of this encounter Care Teams Field Service Technician Poultry Relationship Specialty Start Date End Date Roxie Aguirre ANP [address] [place] [phone] PCP - General Family Medicine 12/22/20 documented as of this encounter
[2025-02-08 12:51] LABS: E. coli EAEC Not Detected (Not Detect.); E. coli EPEC Not Detected (Not Detect.); E. coli ETEC Not Detected (Not Detect.); E. coli STEC Not Detected (Not Detect.); Shigella sp./EIEC Not Detected (Not Detect.)
== END 2025-02-07 15:19 | disposition home or self-care (01) ==
LOC: HO.HHCL 15:18
PROVIDERS: PCP Nurse Practitioner Primary Care; Visit Provider Nurse Practitioner Primary Care
DX: R19.7 Diarrhea, unspecified (principal)
CPT/HCPCS: 87177; 87209; 87507

== ENCOUNTER 2025-02-08 12:13 | Outpatient (AMB) | payer OTHER, SELFPAY ==
--- NOTE | 2025-02-08 12:07 | HO.NEPHOV_ITS ---
Vital Signs 02/08/25 12:08 02/08/25 15:03 Height 5 ft 7 in Weight 185 lb BMI 29.0 BP 160/72 H 130/70 Blood Pressure Location Rt brachial Rt brachial Position Sitting Sitting Pulse 104 H Pulse Source Pulse Oximeter Pulse Oximetry (%) 98 Oxygen Delivery Method Room Air Intake [place] [facility] [place] Hypophos Flap Lining Binder Required: No Accompanied by: Spouse Allergies No Known Allergies Allergy (Verified 02/08/25 12:10) Medication List - Last Reconciled 02/08/25 by Medardo Rahman MD amlodipine 10 mg PO DAILY cetirizine 10 mg PO QAM ergocalciferol (vitamin D2) (Vitamin D2) 1,250 mcg PO Phillips@0900 escitalopram oxalate 10 mg PO DAILY potassium, sodium phosphates 280-160-250 mg (Phos-NaK) 2 packets PO DAILY 14 days HPI Comments Details: The patient is a 29-year-old male presenting with electrolyte imbalance. He experienced symptoms such as heart palpitations, tingling sensations, and muscle cramps, which [place]. This was the first occurrence of such symptoms, and they were severe enough to warrant hospitalization. He was found to have severe hypophosphatemia. Prior to hospitalization he had significant diarrhea for almost a week. He continues to have diarrhea. But the frequency has improved. Workup in progress he has dropped off a stool sample yesterday. Waiting for GI appointment The patient has a history of anxiety disorder, for which he is currently taking citalopram (Lexapro). He also has a history of hypertension, previously managed with medication, which he discontinued after improvement. Recently, his blood pressure has increased again, and he is currently taking amlodipine. [facility] Medical History (Updated 02/08/25 @ 12:28 by Medardo Rahman MD) Migraine Anxiety Hypertension Asthma Social History Household Members: Significant Other and Children Housing: House Do you presently have visiting nurse or other home services: No Patient Tobacco Use Status: Never used Tobacco service: No Review of Systems Const Denies fever(s) and Denies weight loss Card Denies chest pain Resp Denies cough and Denies hemoptysis GI Denies abdominal pain and Denies nausea Musc Denies back pain Neuro Denies focal weakness Physical Exam Vital Signs: Last Vital Signs Pulse 104 H 02/08/25 12:08 BP 160/72 H 02/08/25 12:08 Pulse Ox 98 02/08/25 12:08 Oxygen Delivery Method Room Air 02/08/25 12:08 BMI result Body Mass Index 29.0 Comfortable Neck supple no JVD. Lungs entry equal no rales. Heart S1-S2 heard no gallop or rub. Abdomen soft nontender. Neuro alert awake oriented. No asterixis. Extremities no edema. Results Reviewed Nephrology Results: Hgb, (14.0-18.0) 16.6 g/dl 02/03/25 WBC, (4.8-10.8) 8.0 X10*3/uL 02/03/25 Plt Count, (160-400) 357 X10*3/uL 02/03/25 Sodium, (135-145) 141 mmol/L 02/06/25 Potassium, (3.3-5.1) 4.2 mmol/L 02/06/25 Chloride, (96-108) 107 mmol/L 02/06/25 Carbon Dioxide, (22-29) 26 mmol/L 02/06/25 BUN, (9-16) 11 mg/dL 02/06/25 Creatinine, (0.5-1.4) 0.90 mg/dL 02/06/25 Calcium, (8.4-10.2) 9.7 mg/dL 02/06/25 Phosphorus, (2.7-4.5) 2.9 mg/dL 02/06/25 PTH Intact, (8.7-77.1) 54.1 pg/mL 02/06/25 Urine Protein, (Neg-Trace) Negative mg/dL 02/01/25 Urine Creatinine 84.02 mg/dL 02/01/25 Assessment & Plan Assessment & Plan (1) Hypertension: Code(s): I10 - Essential (primary) hypertension Category: Medical (2) Hypophosphatemia: Code(s): E83.39 - Other disorders of phosphorus metabolism Category: Medical Plan 1. Electrolyte Imbalance Hypophosphatemia primarily due to GI loss. - Continue monitoring electrolyte levels, particularly phosphorus and potassium, with follow-up blood tests scheduled. - Adjust potassium phosphate supplementation based on upcoming test results to avoid hyperphosphatemia. 2. Anxiety Disorder - Continue current medication regimen with citalopram (Lexapro). - Consider referral to a therapist for additional support. 3. Hypertension - Maintain current antihypertensive therapy with amlodipine. - Monitor blood pressure regularly, especially in light of anxiety-related fluctuations. 4. Diarrhea - Initiate antidiarrheal medication/Lomotil/ as needed, with instructions to use sparingly based on symptom severity. - Follow up with gastroenterology if symptoms persist or worsen. Orders: Orders Parathyroid Hormone Intact 3 Days E83.39 - Other disorders of phosphorus metabolism, I10 - Essential (primary) hypertension Sodium Urine Random 3 Days E83.39 - Other disorders of phosphorus metabolism, I10 - Essential (primary) hypertension Basic Metabolic Panel 3 Days E83.39 - Other disorders of phosphorus metabolism, I10 - Essential (primary) hypertension Magnesium 3 Days E83.39 - Other disorders of phosphorus metabolism, I10 - Essential (primary) hypertension Phosphorus 3 Days E83.39 - Other disorders of phosphorus metabolism, I10 - Essential (primary) hypertension UA and rflx microscopic 3 Days E83.39 - Other disorders of phosphorus metabolism, I10 - Essential (primary) hypertension Creatinine Urine 3 Days E83.39 - Other disorders of phosphorus metabolism, I10 - Essential (primary) hypertension Medications: New diphenoxylate-atropine 2.5-0.025 mg (Lomotil) 1 tab PO BID PRN 10 tabs 0RF diarrhea Discontinued amlodipine Discontinued Reason: Patient no longer taking 5 mg PO DAILY 90 tabs 0RF Patient Instructions: Patient Instructions - Continue taking potassium phosphate as prescribed and monitor for any changes in symptoms. - Take antidiarrheal medication only if diarrhea persists, and follow the dosing instructions provided. - Maintain regular blood pressure monitoring and report any significant changes. - Stay hydrated and avoid caffeine to help manage blood pressure and overall health. - Schedule a follow-up appointment with a experience designer if diarrhea continues. Coding Level of Care Code New Pt Level 4 (18109) Diagnoses Hypertension I10 Hypophosphatemia E839
[2025-02-08 12:08] VITALS: BP 160/72; PULSE 104; O2SAT 98; BMI 29.0
[2025-02-08 15:03] VITALS: BP 130/70
== END 2025-02-08 12:32 | disposition home or self-care (01) ==
LOC: HO.HKA 12:13
PROVIDERS: PCP Nurse Practitioner Primary Care; Visit Provider Internal Medicine Hypertension Specialist
DX: I10 Essential (primary) hypertension (principal); E83.39 Other disorders of phosphorus metabolism
CPT/HCPCS: 99214

== ENCOUNTER 2025-02-15 13:20 | Outpatient (REF) | payer OTHER, SELFPAY ==
--- OUTSIDE RECORDS SUMMARY | 2025-02-15 13:00 | XMS_ITS | Encounter Summary ---
Author Organization [employer] Address [address] [place] [address] 7 [place] [address] Care Team Providers Care Key Account Director Name Role Phone Roxie Aguirre Primary Care Provider [phone] Reason for Visit * Reason Comments Blood Pressure Check Encounter Details Date Type Department Care Team (Latest Contact Info) Description 02/15/2025 1:00 PM EST Clinical Support [facility] MEDICINE [address] [place] [address] Ruma Horton RN Essential hypertension Social History Tobacco Use Types Packs/Day Years [...] Sign Reading Time Taken Comments Blood Pressure 138/90 02/15/2025 1:21 PM EST Pulse 98 02/15/2025 1:21 PM EST Temperature - - Respiratory Rate 20 02/15/2025 1:21 PM EST Oxygen Saturation 99% 02/15/2025 1:21 PM EST Inhaled Oxygen Concentration - - Weight - - Height - - Body Mass Index - - documented in this encounter Progress Notes * Ruma Horton RN - 02/15/2025 1:00 PM EST SUBJECTIVE: Jani Tobar is a 29 y.o. year old male who presents for Blood Pressure Check Preferred language for medical information: Icelandic Environmental Analyst needed: No Recommendations at last visit with Dr. Fenton on 02/06/2025 were to increase Amlodipine to 10 mg daily and keep a home blood pressure log and return for a recheck in one week's time on PCP RN team. Today, Jani Tobar does complain of any blurred vision, shortness of breath, chest pain, dizziness, or headaches. Pt only endorsed SOB but the pt states that this only happens when he is anxious or thinking about things in the future. No CP or HARTLEY. Current Medications[1] Patient Active Problem List Diagnosis Date Noted Diarrhea 02/09/2025 Snoring 02/09/2025 Anxiety 01/31/2025 Reactive airway disease without complication 01/31/2025 Generalized anxiety disorder with panic attacks 01/30/2025 Vertebral compression fracture (HCC) 05/25/2023 Essential hypertension 04/06/2022 Patient has no known allergies. Jani Tobar does confirm adherence to medications for hypertension listed above. Confirmed medications taken today [x] Recent emergency room or hospitalizations: Yes Notes scanned into chart: Yes Tobacco Use History[2] Social History Substance and Sexual Activity Alcohol Use Not Currently Social History Substance and Sexual Activity Drug Use Never BP Readings from Last 4 Encounters: 02/15/25 (!) 138/90 02/06/25 138/78 01/31/25 (!) 130/98 01/30/25 (!) 183/108 Pulse Readings from Last 4 Encounters: 02/15/25 98 02/06/25 100 01/31/25 95 01/30/25 (!) 112 OBJECTIVE: Vitals: 02/15/25 1321 BP: (!) 138/90 BP Location: Left arm Patient Position: Sitting BP Cuff Size: Adult Pulse: 98 Resp: 20 SpO2: 99% ASSESSMENT: Achieve goal blood pressure of <140/90. Pt states he has been compliant with new dose of Amlodipine 10 mg and was satisfied with current BP number but is concerned with continued feelings of anxiety and jitteriness. The pt has not been able to return to work due to ongoing anxiety due to currentstressors. Pt did have an increase in escitalopram to 10 mg daily and advised to continue with outpatient therapy and psychiatry referral placed. Pt also concerned about recent admission to hospital for low phosphorus and any relationship to symptoms. No home BP readings to report PLAN: Pt advised that today's findings will be forwarded to PCP for review and advisement. If any changesin medication are made or a f/u is needed the pt will be contacted. Jani Tobar advised to continue taking medications as directed and reinforcement of lifestyle modifications including low sodium diet and exercise were reviewed. Jani Tobar agreeable to plan discussed at today's visit. Future Appointments Date Time Provider Department Center 03/13/2025 4:00 PM BETH Hernandez MEDICINE [facility] Ruma Horton RN [1] Current Outpatient Medications Medication Sig Dispense Refill albuterol 108 (90 Base) MCG/ACT inhaler Take as needed every 4-6 hours for SOB/wheezing 18 g 1 amLODIPine (Norvasc) 10 MG tablet Take 1 tablet (10 mg) by mouth Once per day. 90 tablet 3 cetirizine (ZyrTEC) 10 MG tablet TAKE 1 TABLET BY MOUTH EVERY DAY IN THE MORNING 90 tablet 1 ergocalciferol (Vitamin D2) 1.25 MG (86048 UT) capsule Take 1,250 mcg by mouth 1 (one) time per week. escitalopram (Lexapro) 5 MG tablet Take 2 tablets (10 mg) by mouth Once per day. 60 tablet 2 potassium & sodium phosphates (Phos-NaK) 280-160-250 MG packet Take 1 packet by mouth 2 times daily. No current facility-administered medications for this visit. [2] Social History Tobacco Use Smoking Status Never Passive exposure: Never Smokeless Tobacco Never documented in this encounter Plan of Treatment Upcoming Encounters Date Type Department Care Team (Late st Contact Info) Description 03/13/2025 4:00 PM EST Telemedicine [facility] MEDICINE [address] [place] [address] Roxie Aguirre ANP [address] [place] [address] documented as of this encounter Visit Diagnoses Diagnosis Essential hypertension Unspecified essential hypertension documented in this encounter Additional Health Concerns Assessment Noted Time PHQ-9 Depression Total Score: 4 01/31/20 25 4:04 PM EST documented as of this encounter Care Teams Key Account Director Relationship Specialty Start Date End Date Roxie Aguirre ANP [address] [place] [address] PCP - General Family Medicine 12/22/20 documented as of this encounter
--- OUTSIDE RECORDS SUMMARY | 2025-02-15 13:39 | XMS_ITS | Encounter Summary ---
Author Organization [employer] Address [address] [place] [address] 7 [place] [address] Care Team Providers Care Metal Sander Name Role Phone Roxie Aguirre Primary Care Provider [phone] Encounter Details Date Type Department Care Team (Latest Contact Info) Description 02/11/2025 Results Follow-Up [facility] MEDICINE [address] [place] [address] Roxie Aguirre ANP [address] [place] [address] Stool - Gastrointestinal panel Social History Tobacco Use Types Packs/Day Years [...] Result Encounter Note - BETH Hernandez - 02/11/2025 9:44 AM EST Cornelio Gunter, This is normal. How are you feeling? Please call our office if you have any questions. Por favor llame a la oficina si tiene preguntas. Take care, Cu??Roxie benites PRISON LIBRARIAN documented in this encounter Plan of Treatment Upcoming Encounters Date Type Department Care Team (Late st Contact Info) Description 03/13/2025 4:00 PM EST Telemedicine [facility] MEDICINE [address] [place] [address] Roxie Aguirre ANP [address] [place] [address] documented as of this encounter Visit Diagnoses Not on filedocumented in this encounter Additional Health Concerns Assessment Noted Time PHQ-9 Depression Total Score: 4 01/31/20 25 4:04 PM EST documented as of this encounter Care Teams Metal Sander Relationship Specialty Start Date End Date Roxie Aguirre ANP [address] [place] [address] PCP - General Family Medicine 12/22/20 documented as of this encounter
--- OUTSIDE RECORDS SUMMARY | 2025-02-15 13:39 | XMS_ITS | Encounter Summary ---
Author Organization [employer] Address [address] [place] [address] 7 [place] [address] Care Team Providers Care Project Accountant Name Role Phone Roxie Aguirre Primary Care Provider [phone] Encounter Details Date Type Department Care Team (Latest Contact Info) Description 02/01/2025 Results Follow-Up [facility] MEDICINE [address] [place] [address] Roxie Aguirre ANP [address] [place] [address] CBC auto differential, High Sensitivity Troponin I, [...] EST Telemedicine [facility] MEDICINE [address] [place] [address] Roxie Aguirre ANP [address] [place] [address] documented as of this encounter Visit Diagnoses Not on filedocumented in this encounter Additional Health Concerns Assessment Noted Time PHQ-9 Depression Total Score: 4 01/31/20 25 4:04 PM EST documented as of this encounter Care Teams Project Accountant Relationship Specialty Start Date End Date Roxie Aguirre ANP [address] [place] [address] PCP - General Family Medicine 12/22/20 documented as of this encounter
--- OUTSIDE RECORDS SUMMARY | 2025-02-15 13:39 | XMS_ITS | Encounter Summary ---
Author Organization [employer] Address [address] [place] [address] 7 [place] [address] Care Team Providers Care Forepart Rounder Name Role Phone Timothy Roxie CAMPOS Primary Care Provider [phone] Encounter Details Date Type Department Care Team (Latest Contact Info) Description 02/15/2025 Travel Social History Tobacco Use Types Packs/Day [...] Info) Description 03/13/2025 4:00 PM EST Telemedicine [facility] MEDICINE [address] [place] [address] Roxie Aguirre ANP [address] [place] [address] documented as of this encounter Visit Diagnoses Not on filedocumented in this encounter Additional Health Concerns Assessment Noted Time PHQ-9 Depression Total Score: 4 01/31/20 25 4:04 PM EST documented as of this encounter Care Teams Forepart Rounder Relationship Specialty Start Date End Date Roxie Aguirre ANP [address] [place] [address] PCP - General Family Medicine 12/22/20 documented as of this encounter
--- OUTSIDE RECORDS SUMMARY | 2025-02-15 13:39 | XMS_ITS | Clinical Summary ---
Author Organization [facility] Address [address] [place] [address] Care Team Providers Care Real Estate Leasing Manager Name Role Phone [facility] Primary Care Provider [phone] Allergies No known active allergies Active Problems [...] Social Drivers of Health Annual Screening 03/28/2024 Influenza Vaccine (#1) 2024 , 01/05/2020, 01/07/2019, Additional history exists COVID-19 Vaccine (3 - 2024- season) 2024 01/23/2021, 12/30/2020 DTaP,Tdap,and Td Vaccines (3 - Td or Tdap) 12/16/2031 12/15/2021, 12/22/2020 HIV Screening Completed 04/06/2022 Pneumococcal Vaccine: Pediatric (0-5 Years) and At-Risk Patients (6-50 Years) Aged Out No longer eligible based on patient's age to complete this topic Insurance [facility] Care Teams Real Estate Leasing Manager Relationship Specialty Start Date End Date [address] [address] PCP - General 05/25/23
--- OUTSIDE RECORDS SUMMARY | 2025-02-15 13:39 | XMS_ITS | Encounter Summary ---
Author Organization [employer] Address [address] [place] [address] 7 [place] [address] Care Team Providers Care Food Beverage Manager Name Role Phone Roxie Aguirre Primary Care Provider [phone] Encounter Details Date Type Department Care Team ([facility] st Contact Info) Description 01/31/2025 Results Follow-Up [facility] MEDICINE [address] [place] [address] Roxie Aguirre ANP [address] [place] [address] Basic Metabolic Panel, TSH W/Reflex to FT4, [...] Info) Description 03/13/2025 4:00 PM EST Telemedicine [facility] MEDICINE [address] [place] [address] Roxie Aguirre ANP [address] [place] [address] documented as of this encounter Procedures Procedure Name Priority Date/Time Associated Diagnosis Comments VITAMIN D,25-OH,TOTAL,IA Routine 01/31/2025 1:46 PM EST Hypercalcemia documented in this encounter Results * (ABNORMAL) Vitamin D, 25-Hydroxy, Total, Immunoassay (01/31/2025 1:46 PM EST) Vitamin D 25-OH Total 27.3(L) >30 ng/mL [facility] Comment: Health Based Reference Values*< 20 ng/mL [id number] ng/mL Insufficient> 30 ng/mL Sufficient*Azul LOPEZ. N [...] ANP LAB BLOOD ORDERABLES Final Resul t [facility] [address] [place] [address] [phone] documented in this encounter Visit Diagnoses Diagnosis Hypercalcemia- Primary documented in this encounter Additional Health Concerns Assessment Noted Time PHQ-9 Depression Total Score: 4 01/31/20 25 4:04 PM EST documented as of this encounter Care Teams Food Beverage Manager Relationship Specialty Start Date End Date Roxie Aguirre ANP [address] [place] [address] PCP - General Family Medicine 12/22/20 documented as of this encounter
--- OUTSIDE RECORDS SUMMARY | 2025-02-15 13:39 | XMS_ITS | Encounter Summary ---
Author Organization [employer] Address [address] [place] [address] Care Team Providers Care B And B Gang Worker Name Role Phone Roxie Aguirre Primary Care Provider [phone] Reason for Visit * Reason Onset Date Comments Med Refill 10/06/2022 Encounter Details Date Type Department Care Team ([facility] st Contact Info) Description 10/06/2022 Telephone [facility] MEDICINE [address] [place] [address] Roxie Aguirre ANP [address] [place] [address] Med Refill Social History Tobacco Use Types [...] Info) Description 03/13/2025 4:00 PM EST Telemedicine [facility] MEDICINE [address] [place] [address] Roxie Aguirre ANP [address] [place] [address] documented as of this encounter Visit Diagnoses Not on filedocumented in this encounter Care Teams B And B Gang Worker Relationship Specialty Start Date End Date Roxie Aguirre ANP [address] [place] [address] PCP - General Family Medicine 12/22/20 documented as of this encounter
--- OUTSIDE RECORDS SUMMARY | 2025-02-15 13:40 | XMS_ITS | Encounter Summary ---
Author Organization [employer] Address [address] [place] [address] 7 [place] [address] Care Team Providers Care Regulatory Affairs Spec Name Role Phone Roxie Aguirre Primary Care Provider [phone] Encounter Details Date Type Department Care Team ([facility] Contact Info) Description 01/30/2025 Telephone [facility] MEDICINE [address] [place] [address] Roxie Aguirre ANP [address] [place] [address] Social History Tobacco Use Types Packs/Day Years [...] caller accepted this outcome. Contact pt at [phone] documented in this encounter Plan of Treatment Upcoming Encounters Date Type Department Care Team ([facility] st Contact Info) Description 03/13/2025 4:00 PM EST Telemedicine [facility] MEDICINE [address] [place] [address] Roxie Aguirre ANP [address] [place] [address] documented as of this encounter Visit Diagnoses Not on filedocumented in this encounter Additional Health Concerns Assessment Noted Time PHQ-9 Depression Total Score: 4 01/31/20 25 4:04 PM EST documented as of this encounter Care Teams Regulatory Affairs Spec Relationship Specialty Start Date End Date Roxie Aguirre ANP [address] [place] [address] PCP - General Family Medicine 12/22/20 documented as of this encounter
--- OUTSIDE RECORDS SUMMARY | 2025-02-15 13:40 | XMS_ITS | Encounter Summary ---
Author Organization [employer] Address [address] [place] [address] 7 [place] [address] Care Team Providers Care Audio Visual Engineer Name Role Phone Roxie Aguirre Primary Care Provider [phone] Encounter Details Date Type Department Care Team ([facility] st Contact Info) Description 02/06/2025 Results Follow-Up [facility] MEDICINE [address] [place] [address] Roxie Aguirre ANP [address] [place] [address] Basic Metabolic Panel, Fasting, Phosphate (As Phosphorus), [...] you've gotten the letter I sent via [employer] for work through 02/15 but if not, please let me know and I will print or re-send. Please call our office if you have any questions. Por favor llame a la oficina si tiene preguntas. Take care, Cu??Roxie benites ASSOCIATE MEDIA DIRECTOR documented in this encounter Plan of Treatment Upcoming Encounters Date Type Department Care Team (Late st Contact Info) Description 03/13/2025 4:00 PM EST Telemedicine [facility] MEDICINE [address] [place] [address] Roxie Aguirre ANP [address] [place] [address] documented as of this encounter Visit Diagnoses Not on filedocumented in this encounter Additional Health Concerns Assessment Noted Time PHQ-9 Depression Total Score: 4 01/31/20 25 4:04 PM EST documented as of this encounter Care Teams Audio Visual Engineer Relationship Specialty Start Date End Date Roxie Aguirre ANP [address] [place] [address] PCP - General Family Medicine 12/22/20 documented as of this encounter
--- OUTSIDE RECORDS SUMMARY | 2025-02-15 13:40 | XMS_ITS | Clinical Summary ---
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 30 tablet 11 01/31/20 025 Discontinued(Al ternate therapy) escitalopram (Lexapro) 5 MG tabletIndication s:Anxiety Take 1 tablet (5 mg) by mouth Once per day. 30 tablet 2 02/01/20 025 Discontinued amLODIPine (Norvasc) 5 MG tablet Take 5 mg by mouth Once per day. 02/04/20 025 Discontinued(In effective) Active Problems Problem Noted Date Diagnosed Date Diarrhea 02/09/2025 Snoring 02/09/2025 Anxiety 01/31/2025 Reactive [...] organization. Date Type Department Care Team Description 02/15/2025 1:00 PM EST Clinical Support [address] [place] [address] Ruma Horton RN Essential hypertension 02/15/2025 Travel 02/11/2025 Results Follow-Up [address] [place] [address] Roxie Aguirre ANP Stool - Gastrointestinal panel 02/06/2025 10:00 AM EST Office Visit [facility] [place] [address] Yeny Fenton FNP Hypophosphatemia (Primary Dx); Anxiety; Essential hypertension; Snoring; Hospital discharge follow-up; Diarrhea, unspecified type 02/06/2025 Results Follow-Up [address] [place] [place] [address] Roxie Aguirre ANP Basic Metabolic Panel, Fasting, Phosphate (As Phosphorus), PTH, Intact Without Calcium 02/06/2025 Orders Only [address] [address] Roxie Aguirre ANP 02/06/2025 Orders Only [address] [place] [address] Roxie Aguirre ANP Diarrhea, unspecified type (Primary Dx) 02/06/2025 Travel 02/05/2025 [address] [place] [address] Yeny Fenton FNP Chart Prep 02/04/2025 Orders Only [address] [address] Roxie Aguirre ANP Hypophosphatemia (Primary Dx); Diarrhea, unspecified type 02/04/2025 Patient Outreach [address] [place] [address] Roxie Aguirre ANP Transition Of Care (Tcm) (HDF- Unscheduled (Message sent to team nurses) and SDOH screening negative and Tobacco screening negative) 02/04/2025 [address] [place] [address] Roxie Aguirre ANP ER Follow-up 02/01/2025 Results Follow-Up [address] [place] [address] Roxie Aguirre ANP CBC auto differential, High Sensitivity Troponin I, Comprehensive Metabolic Panel, Additional followed-up results: 2 02/01/2025 Orders Only GENERIC EXTERNAL DATA DEPARTMENT Provider, Generic External Data 01/31/2025 11:15 AM EST Office Visit [facility] [address] [place] [phone] Roxie Aguirre ANP Essential hypertension (Primary Dx); Anxiety; Dietary counseling; Exercise counseling; Compression fracture of lumbar vertebra, unspecified lumbar vertebral level, sequela; Mild intermittent reactive airway disease without complication; Witnessed episode of apnea 01/31/2025 Results Follow-Up [facility] [address] [place] [phone] Roxie Aguirre ANP Basic Metabolic Panel, TSH W/Reflex to FT4, Hemoglobin A1c 01/30/2025 4:00 PM EST Office Visit [facility] [address] [place] [phone] Stephanie Jerez MD Essential hypertension (Primary Dx); Depression with anxiety; Anxiety 01/30/2025 Travel 01/30/2025 Telephone [facility] [address] [place] [phone] Roxie Aguirre ANP 01/25/2025 Telephone [facility] [address] [place] [phone] Roxie Aguirre ANP Nurse Triage from Last [...] Pulse 98 02/15/2025 1:21 PM EST Temperature 36.9 C (98.4 F) 02/06/2025 10:08 AM EST Respiratory Rate 20 02/15/2025 1:21 PM EST [...] Info) Description 03/13/2025 4:00 PM EST Telemedicine [facility] [address] [place], [place] [phone] Roxie Aguirre ANP [address] [place] [address] Health Maintenance Due Date Last Done Comments [...] Procedure Name Priority Date/Time Associated Diagnosis Comments GASTROINTESTINAL PANEL Routine 7:30 AM EST Diarrhea, unspecified type PTH, INTACT WITHOUT CALCIUM Routine 02/06/2025 11:29 [...] 6:36 PM EST CREATININE, RANDOM URINE Routine 025 6:36 PM EST URINE ELECTROLYTES Routine 02/01/2025 [...] 02/01/2025 3:31 PM EST VITAMIN D,25-OH,TOTAL,IA Routine 025 1:46 PM EST Hypercalcemia HEMOGLOBIN A1C Routine 01/31/2025 1:46 PM EST Anxiety TSH W/REFLEX TO FT4 Routine 01/31/2025 1 :46 PM EST Anxiety BASIC METABOLIC PANEL Routine 01/31/2025 1:46 PM EST Essential hypertension Anxiety HIV 1/2 ANTIGEN/ANTIBODY, FOURTH GENERATION W/RFL Routine 04/06/2022 1:49 PM EST from Last 3 Months or Most Recently Relevant to Health Maintenance Results * Stool - Gastrointestinal panel (02/07/2025 7:30 AM EST) Campylobacter Not Detected Not Detect. [facility] Plesiomonas shigelloides Not Detected Not Detect. [facility] Salmonella Not Detected Not Detect. [facility] Vibrio Not Detected Not Detect. [facility] Vibrio cholerae Not Detected Not Detect. [facility] YERSINIA ENTEROCOLITICA Not Detected Not Detect. [facility] Enteroaggregative E. coli (EAEC) Not Detected Not Detect. [facility] Enteropathogenic E. coli (EPEC) Not Detected Not Detect. [facility] Enterotoxigenic E. coli (ETEC) lt/st Not Detected Not Detect. [facility] Shiga-like toxin-producing E. coli (STEC) stx1/stx2 Not Detected Not Detect. [facility] E coli O157 Not applicable Not Detect. [facility] Comment:E. coli containing t he O157 antigen are a subset ofShiga-like toxin- producing E. coli (STEC). Shigella/Enteroinvasive E. coli (EIEC) Not Detected Not Detect. [facility] Cryptosporidium Not Detected Not Detect. [facility] Cyclospora cayetanensis Not Detected Not Detect. [facility] Entamoeba histolytica Not Detected Not Detect. [facility] Giardia lamblia Not Detected Not Detect. [facility] Adenovirus F 40/41 Not Detected Not Detect. [facility] Astrovirus Not Detected Not Detect. [facility] Norovirus GI/GII Not Detected Not Detect. [facility] Rotavirus A Not Detected Not Detect. [facility] Sapovirus Not Detected Not Detect. [facility] Comment: All results must be correlated with clinical findings.Negative results do not exclude the possibility ofgastrointestinal infection and should not be used as thesole basis for diagnosis, treatment, or other managementdecisions. Virus, bacteria, and parasite nucleic acid maypersist in vivo independently of organism viability.Additionally, some organisms may be carriedasymptomatically.Detection of organism targets does not imply that thecorresponding organisms are infectious or are the causativeagents for clinical symptoms. There is a risk of falsenegative values due to the presence of sequence variants inthe gene targets of the assay, amplification inhibitors inspecimens, or inadequate numbers of organisms foramplification.The identification of several diarrheagenic E. colipathotypes has historically relied upon phenotypiccharacteristics. This panel targets genetic determinantscharacteristic of most pathogenic strains, but may notdetect all strains having phenotypic characteristics of apathotype.The performance of this test has not been established formonitoring treatment of infection with any of the panelorganisms.This assay is performed by Multiplexed PCR, utilizing [employer]. Stool Rectal contents / Unknown 02/07/2025 7:30 AM EST 02/07/2025 4:14 PM EST [facility] LAB MICROBIOLOGY - GENERAL ORDER BHARGAVI Final Result [facility] [address] [place] [phone] * (ABNORMAL) Basic Metabolic Panel, Fasting (02/06/2025 11:29 AM EST) Glucose Fasting 103(H) 60 - 99 mg/dL [facility] Comment:A fasting glucose fr om 100-125 mg/dl is considered impaired(pre-diabetes). 02/06/2025 11:2 9 AM EST 02/06/2025 12:52 PM EST us Generic External Data Provider LAB BLOOD ORDERAB LES Final Result Performing Organization Address City/[facility]/ZIP Co de Phone Number [facility] [address] [place] [phone] * Phosphate (As Phosphorus) (02/06/2025 11:29 AM EST) Only the most recent of2 resultswithin the time period is included. Phosphorus 2.9 2.7 - 4.5 mg/dL [facility] 02/06/2025 11:2 9 AM EST 02/06/2025 12:52 PM EST us Generic External Data Provider LAB BLOOD ORDERAB LES Final Result Performing Organization Address [facility] Co de Phone Number [facility] [address] [place] [phone] * PTH, Intact Without Calcium (02/06/2025 11:29 AM EST) Parathyroid Hormone, Intact 54.1 8.7 - 77.1 pg/mL [facility] 02/06/2025 11:2 9 AM EST 02/06/2025 12:52 PM EST Generic External Data Provider LAB BLOOD ORDERAB LES Final Result Performing Organization Address [facility] Co de Phone Number [facility] [address] [place] [phone] * Basic Metabolic Panel (02/06/2025 11:29 AM EST) Only the most recent of2 resultswithin the time period is included. Sodium 141 135 - 145 mmol/L [facility] Potassium 4.2 3.3 - 5.1 mmol/L [facility] Chloride 107 96 - 108 mmol/L [facility] Carbon Dioxide 26 22 - 29 mmol/L [facility] Anion Gap 12 12 - 20 [facility] Urea Nitrogen (BUN) 11 9 - 16 mg/dL [facility] Creatinine, Serum 0.90 0.5 - 1.4 mg/dL [facility] Estimated Glomerular Filt Rate >60 [facility] Comment:Chronic Kidney Disea se: Estimated GFR < 60 mL/min/[id number] Kidney Disease: Estimated GFR < 15 mL/min/1.73m2 Glucose 103 60 - 115 mg/dL [facility] Calcium 9.7 8.4 - 10.2 mg/dL [facility] Blood Venous blood specimen / Unknown 02/06/2025 11:29 AM EST 02/06/2025 12:52 PM EST Roxie Aguirre [facility] LAB BLOOD ORDERABLES Final Resul t [facility] [address] [place], [place] [phone] * Blood gas, arterial (02/01/2025 6:56 PM EST) ABG pH 7.43 7.35 - 7.45 [facility] Comment:METER #: [id number] additional_comment: Román mckeon ctrbb jesin ABG PCO2 35 32 - 45 mmHg [facility] Comment:METER #: [id number] additional_comment: Román mckeon ctrbb jesin ABG PO2 87 83 - 108 mmHg [facility] Comment:METER #: [id number] additional_comment: Román mckeon ctrbb jesin ABG Base Excess 0.3 mmol/L [facility] Comment:METER #: [id number] additional_comment: Román mckeon ctrbb jesin ABG HCO3 24 22 - 26 mmol/L [facility] Comment:METER #: [id number] additional_comment: Román garcia ABG Oxygen Saturation 98.0 % [facility] Comment:METER #: [id number] additional_comment: Román garcia 02/01/2025 6:56 PM EST 02/01/2025 7:00 PM EST us Generic External Data Provider LAB BLOOD ORDERAB LES Final Result Performing Organization Address [facility] Co de Phone Number [facility] [address] [place] [phone] * High Sensitivity Troponin I (02/01/2025 6:36 PM EST) Only the most recent of2 resultswithin the time period is included. TROPONIN I HIGH SENSITIVITY <2.7 <3.5 - 35.0 ng/L [facility] Comment:The Wolf high sens itivity Troponin-I results should beused in conjunction with other diagnostic information suchas ECG, clinical observations and information, and patientsymptoms to aid in the diagnosis of GA. 02/01/2025 6:36 PM EST 02/01/2025 6:38 PM EST us Generic External Data Provider LAB BLOOD ORDERAB LES Final Result Performing Organization Address [facility] de Phone Number [facility] [address] [place] [phone] * Urinalysis with Reflex to Microscopic (02/01/2025 6:36 PM EST) Color Urine Yellow [facility] Appearance Urine Clear [facility] PH 7.5 5.0 - 9.0 [facility] Glucose Urine UA Negative Negative mg/dL [facility] Urine Blood Negative Negative [facility] Specific [place] - Urine 1.010 1.005 - 1.025 [facility] Urine Protein Negative Neg-Trace mg/dL [facility] Urine Ketones 80 Negative mg/dL [facility] Nitrite Urine Negative Negative [facility] Leukocyte Esterase Urine Negative Negative [facility] 02/01/2025 6:36 PM EST 02/01/2025 6:38 PM EST Generic External Data Provider LAB URINE ORDERAB LES Final Result Performing Organization Address [facility] Co de Phone Number [facility] [address] [place] [phone] * Urine electrolytes (02/01/2025 6:36 PM EST) Chloride Urine Random 95.0 mmol/L [facility] Sodium Urine Random 99.0 mmol/L [facility] Potassium Urine Random 40.3 mmol/L [facility] 02/01/2025 6:36 PM EST 02/01/2025 6:38 PM EST Generic External Data Provider LAB URINE ORDERAB LES Final Result Performing Organization Address [facility] Co de Phone Number [facility] [address] [place] [phone] * Phosphorus, urine, random (02/01/2025 6:36 PM EST) Phosphate, Random Urine 14.2 mg/dL [facility] 02/01/2025 6:36 PM EST 02/01/2025 6:38 PM EST Generic External Data Provider LAB URINE ORDERAB LES Final Result Performing Organization Address [facility] Co de Phone Number [facility] [address] [place] [phone] * Creatinine, Random Urine (02/01/2025 6:36 PM EST) Creatinine, Urine 84.02 mg/dL [facility] 02/01/2025 6:36 PM EST 02/01/2025 6:38 PM EST us Generic External Data Provider LAB URINE ORDERAB LES Final Result [facility] [address] [place] [address] [phone] * (ABNORMAL) CBC auto differential (02/01/2025 3:31 PM EST) White Blood Count 12.7(H) 4.8 - 10.8 X10*3/uL [facility] Red Blood Count 5.87(H) 4.60 - 5.80 X10*6/uL [facility] Hemoglobin 17.5 14.0 - 18.0 g/dl [facility] Hematocrit 48.1 42.0 - 52.0 % [facility] Mean Corpuscular Volume 81.9 80.0 - 98.0 fL [facility] Mean Corpuscular Hemoglobin 29.8 27.0 - 33.0 pg [facility] Mean Corpuscular HGB Conc 36.4(H) 31.0 - 36.0 g/dl [facility] Red Cell Distribution Width 11.7 11.0 - 16.0 % [facility] Platelet Count 438(H) 160 - 400 X10*3/uL [facility] Mean Platelet Volume 9.6 9.4 - 12.4 fL [facility] Neutrophils Percent Auto 78.0(H) 45 - 73 % [facility] Imm Gran Pct Auto 0.3 0.0 - 0.4 % [facility] Lymphocytes Percent Auto 13.8(L) 20 - 40 % [facility] Monocytes Percent Auto 7.0 2 - 11 % [facility] Eosinophils Percent Auto 0.2 0 - 4 % [facility] Basophils Percent Auto 0.7 0 - 2 % [facility] NRBC Pct Auto 0.0 0.0 - 0.2 /100WBC [facility] Neutrophils Absolute Auto 9.9(H) 2.0 - 8.3 x10*3/uL [facility] Imm Gran Abs Auto 0.04(H) 0.00 - 0.03 X10*3/uL [facility] Lymphocytes Absolute Auto 1.8 1.2 - 4.9 X10*3/uL [facility] Monocytes Absolute Auto 0.9 0.1 - 1.2 X10*3/uL [facility] Eosinophils Absolute Auto 0.0 0.0 - 0.4 X10*3/uL [facility] Basophils Absolute Auto 0.1 0.0 - 0.2 X10*3/uL [facility] NRBC Abs Auto 0.000 0.0 - 0.012 X10*3/uL [facility] 02/01/2025 3:31 PM EST 02/01/2025 3:38 PM EST us Generic External Data Provider LAB BLOOD ORDERAB LES Final Result Performing Organization Address [facility]/ZIP Co de Phone Number [facility] [address] [place] [address] [phone] * Magnesium (02/01/2025 3:31 PM EST) Pathologist [facility] Magnesium 1.8 1.6 - 2.6 mg/dL [facility] 02/01/2025 3:31 PM EST 02/01/2025 3:38 PM EST Generic External Data Provider LAB BLOOD ORDERAB LES Final Result Performing Organization Address [facility] Co de Phone Number [facility] [address] [place] [phone] * (ABNORMAL) Comprehensive Metabolic Panel (02/01/2025 3:31 PM EST) Sodium 136 135 - 145 mmol/L [facility] Potassium 3.4 3.3 - 5.1 mmol/L [facility] Chloride 101 96 - 108 mmol/L [facility] Carbon Dioxide 21(L) 22 - 29 mmol/L [facility] Anion Gap 17 12 - 20 [facility] Urea Nitrogen (BUN) 12 9 - 16 mg/dL [facility] Creatinine, Serum 0.90 0.5 - 1.4 mg/dL [facility] Creatinine Clr Calc Pharmacy 128.0 [facility] Comment:eGFR (calculated fro m the MDRD study equation) and eCrCl(calculated from the Cockcroft-Gault equation) are based ondifferent parameters and may not yield comparable results.If eCrCl result is absurd, please check patient'sheight/weight. Estimated Glomerular Filt Rate >60 [facility] Comment:Chronic Kidney Disea se: Estimated GFR < 60 mL/min/1.17i9Prwdzo Kidney Disease: Estimated GFR < 15 mL/min/1.73m2 Glucose 118(H) 60 - 115 mg/dL [facility] Calcium 10.1 8.4 - 10.2 mg/dL [facility] Bilirubin, Total 0.9 0.0 - 1.0 mg/dL [facility] Aspartate Amino Transferase 34 5 - 37 U/L [facility] Alanine Aminotransferase 72(H) 0 - 40 U/L [facility] Total Protein 8.2(H) 6.5 - 8.0 g/dL [facility] Albumin Level 5.4(H) 3.5 - 5.0 g/dL [facility] Alkaline Phosphatase 57 39 - 117 U/L [facility] 02/01/2025 3:31 PM EST 02/01/2025 3:38 PM EST us Generic External Data Provider LAB BLOOD ORDERAB LES Final Result [facility] [address] [place], [place] [phone] * (ABNORMAL) Vitamin D, 25-Hydroxy, Total, Immunoassay (01/31/2025 1:46 PM EST) Vitamin D 25-OH Total 27.3(L) >30 ng/mL [facility] Comment: Health Based Reference Values*< 20 ng/mL [id number] ng/mL Insufficient> 30 ng/mL Sufficient*Azul LOPEZ. N [...] PM EST 01/31/2025 6:11 PM EST Roxie Aguirre [facility] LAB BLOOD ORDERABLES Final Resul t Performing Organization Address [facility] Co de Phone Number [facility] [address] [place] [phone] * TSH W/Reflex to FT4 (01/31/2025 1:46 PM EST) TSH reflex Free T4 1.01 0.32 - 4.0 uIU/mL [facility] Blood Venous blood specimen / Unknown 01/31/2025 1:46 PM EST 01/31/2025 3:59 PM EST Roxie Aguirre [facility] LAB BLOOD ORDERABLES Final Resul t Performing Organization Address [facility]/ZIP Co de Phone Number [facility] [address] [place] [phone] * Hemoglobin A1c (01/31/2025 1:46 PM EST) Hemoglobin A1c 5.2 <6.0 % [facility] Comment:Hemoglobin A1C Refer ence Range Adults: 4.8 - 6.0 % Non diabetic: < 6.0 % Goal: < 7.0 %Additional Action Suggested: > 8.0 %Note: Hemoglobin A1c results are invalid for patients with abnormal amounts of HbF. Blood transfusions may impact the HbA1c concentration in the patient sample. Estimated Average Glucose 103 mg/dL [facility] Comment:eAG = Estimated ave rage glucose which is %A1C expressed asaverage glucose, using the formula of the V0Y-QinwiouSeutvli Glucose study (ADAG), Diabetes Care, Vol.31,#8,Oct. 2007 Blood Venous blood specimen / Unknown 01/31/2025 1:46 PM EST 01/31/2025 3:59 PM EST Roxie Aguirre [facility] BLOOD ORDERABLES Final Resul t [facility] [address] [place] [phone] * HIV-1/2 Antigen and Antibodies, Fourth Generation, with Reflexes (04/06/2022 1:49 PM EST) Pathologist [facility] HIV Antigen/Antibody, 4th Generation NON-REAC TIVE NON-REAC TIVE [facility] Comment: HIV-1 antigen and HIV-1/HIV-2 antibodies were [...] purpose. For additional information please refer to http://education.[employer].iSoccer/faq/EEN856 (This link is being provided for informational/ educational purposes only.) The performance of this assay has not been clinically validated in patients less than 2 years old. 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
[2025-02-15 17:37] LABS: Appearance Urine Clear; Glucose Urine UA Negative (Negative); PH 6.5 (5.0-9.0); Specific Gravity - Urine <= 1.005 (1.005-1.025)
[2025-02-15 17:47] LABS: Anion Gap 12 (12-20); Blood Urea Nitrogen 10 mg/dL (9-16); Calcium 9.8 mg/dL (8.4-10.2); Carbon Dioxide 29 mmol/L (22-29); Chloride 105 mmol/L (96-108); Estimated Glomerular Filt Rate > 60; Magnesium 2.1 mg/dL (1.6-2.6); Potassium 3.9 mmol/L (3.3-5.1); Sodium 142 mmol/L (135-145)
[2025-02-15 18:00] LABS: Parathyroid Hormone Intact 41.5 pg/mL (8.7-77.1)
== END 2025-02-15 13:21 | disposition home or self-care (01) ==
LOC: HO.HHCL 13:20
PROVIDERS: PCP Nurse Practitioner Primary Care; Visit Provider Internal Medicine Hypertension Specialist
DX: I10 Essential (primary) hypertension (principal); E83.39 Other disorders of phosphorus metabolism
CPT/HCPCS: 36415; 80048; 81003; 82570; 83735; 83970; 84100; 84300

== ENCOUNTER 2025-02-19 12:07 | Outpatient (AMB) | payer OTHER, SELFPAY ==
--- OUTSIDE RECORDS SUMMARY | 2025-02-15 13:00 | XMS_ITS | Encounter Summary ---
Author Organization [employer] Address [address] [place] [address] 7 [place] [address] Care Team Providers Care Towboat Pilot Name Role Phone Roxie Aguirre Primary Care Provider [phone] Reason for Visit * Reason Comments Blood Pressure Check Encounter Details Date Type Department Care Team (Latest Contact Info) Description 02/15/2025 1:00 PM EST Clinical Support [facility] MEDICINE [address] [place] [address] Ruma Horton RN Essential hypertension Social History [...] Pressure Check Preferred language for medical information: Nepali Commercial Glazier needed: No Recommendations at last visit with [...] Center 03/13/2025 4:00 PM BETH Hernandez MEDICINE [facility] Ruma Horton RN [1] Current Outpatient Medications [...] tablet 1 ergocalciferol (Vitamin D2) 1.25 MG (96912 UT) capsule Take 1,250 mcg by mouth [...] Description 03/13/2025 4:00 PM EST Telemedicine [facility] MEDICINE [address] [place] [address] Roxie Aguirre ANP [address] [place] [address] documented as of this encounter Visit Diagnoses Diagnosis Essential hypertension Unspecified essential hypertension documented in this encounter Additional Health Concerns Assessment Noted Time PHQ-9 Depression Total Score: 4 01/31/20 25 4:04 PM EST documented as of this encounter Care Teams Towboat Pilot Relationship Specialty Start Date End Date Roxie Aguirre ANP [address] [place] [address] PCP - General Family Medicine 12/22/20 documented as of this encounter
[2025-02-19 12:07] VITALS: BP 148/88; PULSE 91; O2SAT 98; BMI 29.0
--- NOTE | 2025-02-19 12:07 | HO.NEPHOV_ITS ---
Vital Signs 02/19/25 12:07 Height 5 ft 7 in Weight 185 lb BMI 29.0 BP 148/88 H Blood Pressure Location Lt brachial Position Sitting Pulse 91 Pulse Source Pulse Oximeter Pulse Oximetry (%) 98 Oxygen Delivery Method Room Air Intake Visit Reasons: 2wk f/u w/labs Support Assistant Required: No Accompanied by: Self / Same As Patient Allergies No Known Allergies Allergy (Verified 02/19/25 12:10) HPI Comments Details: The patient is a 29-year-old male presenting with electrolyte imbalance. He experienced symptoms such as heart palpitations, tingling sensations, and muscle cramps, which [place]. This was the first occurrence of such symptoms, and they were severe enough to warrant hospitalization. He was found to have severe hypophosphatemia. Prior to hospitalization he had significant diarrhea for almost a week. He continues to have diarrhea. But the frequency has improved. Workup in progress he has dropped off a stool sample yesterday. Waiting for GI appointment The patient has a history of anxiety disorder, for which he is currently taking citalopram (Lexapro). He also has a history of hypertension, previously managed with medication, which he discontinued after improvement. Recently, his blood pressure has increased again, and he is currently taking amlodipine. 02/19/2025. The patient is a 29 year old individual presenting for follow-up. The patient reports ongoing intermittent diarrhea, characterized by mushy stools, though symptoms have improved over the past two days. The patient uses a prescribed medication as needed for mushy stools, which is reported to be effective. The patient has been prescribed a phosphorus powder supplement but has not taken it for the last two days. Recent lab work, performed while the patient was taking the supplement, showed good kidney function with normal phosphorus and potassium levels. COUNT INCLUDES THE [facility] Medical History (Updated 02/19/25 @ 12:16 by Medardo Rahman MD) Hypophosphatemia Migraine Anxiety Hypertension Asthma Social History Household Members: Significant Other and Children Housing: House Do you presently have visiting nurse or other home services: No Patient Tobacco Use Status: Never used Tobacco service: No Physical Exam Vital Signs: Last Vital Signs Pulse 91 02/19/25 12:07 BP 148/88 H 11/25/25 12:07 Pulse Ox 98 02/19/25 12:07 Oxygen Delivery Method Room Air 02/19/25 12:07 BMI result Body Mass Index 29.0 Comfortable Neck supple no JVD. Lungs entry equal no rales. Heart S1-S2 heard no gallop or rub. Abdomen soft nontender. Neuro alert awake oriented. No asterixis. Extremities no edema. Results Reviewed Nephrology Results: Hgb, (14.0-18.0) 16.6 g/dl 02/03/25 WBC, (4.8-10.8) 8.0 X10*3/uL 02/03/25 Plt Count, (160-400) 357 X10*3/uL 02/03/25 Sodium, (135-145) 140 mmol/L 02/19/25 Potassium, (3.3-5.1) 3.8 mmol/L 02/19/25 Chloride, (96-108) 105 mmol/L 02/19/25 Carbon Dioxide, (22-29) 30 mmol/L H 02/19/25 BUN, (9-16) 10 mg/dL 02/19/25 Creatinine, (0.5-1.4) 0.85 mg/dL 02/19/25 Calcium, (8.4-10.2) 10.0 mg/dL 02/19/25 Phosphorus, (2.7-4.5) 2.8 mg/dL 02/19/25 PTH Intact, (8.7-77.1) 41.5 pg/mL 02/15/25 Urine Protein, (Neg-Trace) Negative mg/dL 02/15/25 Urine Creatinine 40.64 mg/dL 02/15/25 Assessment & Plan Assessment & Plan (1) Hypertension: Code(s): I10 - Essential (primary) hypertension Category: Medical (2) Hypophosphatemia: Code(s): E83.39 - Other disorders of phosphorus metabolism Category: Medical Plan 1. Electrolyte Imbalance Hypophosphatemia primarily due to GI loss. Recheck phosphorus levels. If food stays in the normal range I would hold off on phosphorus Supplementation. 2. Anxiety Disorder - Continue current medication regimen with citalopram (Lexapro). - Consider referral to a therapist for additional support. 3. Hypertension - Maintain current antihypertensive therapy with amlodipine. - Monitor blood pressure regularly, especially in light of anxiety-related fluctuations. 4. Diarrhea Continue Lomotil p.r.n. - Follow up with gastroenterology if symptoms persist or worsen. Orders: Orders Basic Metabolic Panel 02/19/25 E83.39 - Other disorders of phosphorus metabolism, I10 - Essential (primary) hypertension Phosphorus 02/19/25 E83.39 - Other disorders of phosphorus metabolism, I10 - Essential (primary) hypertension Magnesium 02/19/25 E83.39 - Other disorders of phosphorus metabolism, I10 - Essential (primary) hypertension Phosphorus 02/19/25 E83.39 - Other disorders of phosphorus metabolism Coding Level of Care Code Est Pt Level 4 (77883) Diagnoses Hypertension I10 Hypophosphatemia E83.39
--- OUTSIDE RECORDS SUMMARY | 2025-02-19 15:49 | XMS_ITS | Encounter Summary ---
Author Organization [employer] Address [address] [place] [address] 7 [place] [address] Care Team Providers Care Criminal Judge Name Role Phone Roxie Aguirre Primary Care Provider [phone] Encounter Details Date Type Department Care Team ([facility] st Contact Info) Description 01/31/2025 Results Follow-Up [facility] MEDICINE [address] [place] [address] Roxie Aguirre ANP [address] [place] [address] Basic Metabolic Panel, TSH W/Reflex to FT4, [...] Description 03/13/2025 4:00 PM EST Telemedicine [facility] MEDICINE [address] [place] [address] Roxie Aguirre ANP [address] [place] [address] documented as of this encounter Procedures Procedure Name Priority Date/Time Associated Diagnosis Comments VITAMIN D,25-OH,TOTAL,IA Routine 01/31/2025 1:46 PM EST Hypercalcemia documented in this encounter Results * (ABNORMAL) Vitamin D, 25-Hydroxy, Total, Immunoassay (01/31/2025 1:46 PM EST) Vitamin D 25-OH Total 27.3(L) >30 ng/mL [facility] Comment: Health Based Reference Values*< 20 ng/mL [id number] ng/mL Insufficient> 30 ng/mL Sufficient*Azul LOPEZ. N [...] ANP LAB BLOOD ORDERABLES Final Resul t [facility] [address] [place] [phone] [phone] documented in this encounter Visit Diagnoses Diagnosis Hypercalcemia- Primary documented in this encounter Additional Health Concerns Assessment Noted Time PHQ-9 Depression Total Score: 4 01/31/20 25 4:04 PM EST documented as of this encounter Care Teams Criminal Judge Relationship Specialty Start Date End Date Roxie Aguirre ANP [address] [place] [address] PCP - General Family Medicine 12/22/20 documented as of this encounter
--- OUTSIDE RECORDS SUMMARY | 2025-02-19 15:49 | XMS_ITS | Encounter Summary ---
Author Organization [employer] Address [address] [place] [address] 7 [place] [address] Care Team Providers Care Gl Accountant Name Role Phone Roxie Aguirre Primary Care Provider [phone] Encounter Details Date Type Department Care Team (Latest Contact Info) Description 02/01/2025 Results Follow-Up [facility] MED[facility]INE [address] [place] [address] Roxie Aguirre ANP [address] [place] [address] CBC auto differential, High Sensitivity Troponin I, [...] Info) Description 03/13/2025 4:00 PM EST Telemedicine [facility] [address] [place] [address] Roxie Aguirre ANP [address] [place] [address] documented as of this encounter Visit Diagnoses Not on filedocumented in this encounter Additional Health Concerns Assessment Noted Time PHQ-9 Depression Total Score: 4 01/31/20 25 4:04 PM EST documented as of this encounter Care Teams Gl Accountant Relationship Specialty Start Date End Date Roxie Aguirre ANP [address] [place] [phone] PCP - General Family Medicine 12/22/20 documented as of this encounter
--- OUTSIDE RECORDS SUMMARY | 2025-02-19 15:49 | XMS_ITS | Clinical Summary ---
Author Organization [facility] Address [address] [place] [address] Care Team Providers Care Human Services Assistant Name Role Phone [facility] Primary Care Provider [phone] Allergies No known active allergies Active Problems [...] patient's age to complete this topic Insurance [facility] Care Teams Human Services Assistant Relationship Specialty Start Date End Date [address] [address] PCP - General 05/25/23
--- OUTSIDE RECORDS SUMMARY | 2025-02-19 15:49 | XMS_ITS | Encounter Summary ---
Author Organization [employer] Address [address] [place] [address] 7 [place] [address] Care Team Providers Care Cosmetics Machine Operator Name Role Phone Roxie Aguirre Primary Care Provider [phone] Encounter Details Date Type Department Care Team (Latest Contact Info) Description 02/11/2025 Results Follow-Up [facility] MEDICINE [address] [place] [address] Roxie Aguirre ANP [address] [place] [address] Stool - Gastrointestinal panel Social History Tobacco [...] si tiene preguntas. Take care, Cu??Roxie benites PRE K TEACHER documented in this encounter Plan of Treatment Upcoming Encounters Date Type Department Care Team (Late st Contact Info) Description 03/13/2025 4:00 PM EST Telemedicine [facility] MEDICINE [address] [place] [address] Roxie Aguirre ANP [address] [place] [address] documented as of this encounter Visit Diagnoses Not on filedocumented in this encounter Additional Health Concerns Assessment Noted Time PHQ-9 Depression Total Score: 4 01/31/20 25 4:04 PM EST documented as of this encounter Care Teams Cosmetics Machine Operator Relationship Specialty Start Date End Date Roxie Aguirre ANP [address] [place] [address] PCP - General Family Medicine 12/22/20 documented as of this encounter
--- OUTSIDE RECORDS SUMMARY | 2025-02-19 15:49 | XMS_ITS | Encounter Summary ---
Author Organization [employer] Address [address] [place] [address] 7 [place] [address] Care Team Providers Care Rodeo Clown Name Role Phone Timothy Roxie CAMPOS Primary Care Provider [phone] Encounter Details Date Type Department Care Team [...] 03/13/2025 4:00 PM EST Telemedicine [facility] MEDICINE [address] [place] [address] Roxie Aguirre ANP [address] [place] [address] documented as of this encounter Visit Diagnoses Not on filedocumented in this encounter Additional Health Concerns Assessment Noted Time PHQ-9 Depression Total Score: 4 01/31/20 25 4:04 PM EST documented as of this encounter Care Teams Rodeo Clown Relationship Specialty Start Date End Date Roxie Aguirre ANP [address] [place] [phone] PCP - General Family Medicine 12/22/20 documented as of this encounter
--- OUTSIDE RECORDS SUMMARY | 2025-02-19 15:49 | XMS_ITS | Encounter Summary ---
Author Organization [employer] Address [address] [place] [address] 7 [place] [address] Care Team Providers Care Vp Celebrity Services Name Role Phone Roxie Aguirre Primary Care Provider [phone] Encounter Details Date Type Department Care Team ([facility] st Contact Info) Description 02/19/2025 Orders Only [facility] MEDICINE [address] [place] [address] Roxie Aguirre ANP [address] [place] [address] Social History Tobacco Use Types Packs/Day Years [...] encounter Progress Notes * BETH Hernandez - 02/19/2025 10:10 AM EST Replied to pt documented in this encounter Plan of Treatment Upcoming Encounters Date Type Department Care Team (Late st Contact Info) Description 03/13/2025 4:00 PM EST Telemedicine [facility] MEDICINE [address] [place] [address] Roxie Aguirre ANP [address] [place] [address] documented as of this encounter Visit Diagnoses Not on filedocumented in this encounter Additional Health Concerns Assessment Noted Time PHQ-9 Depression Total Score: 4 01/31/20 25 4:04 PM EST documented as of this encounter Care Teams Vp Celebrity Services Relationship Specialty Start Date End Date Roxie Aguirre ANP [address] [place] [address] PCP - General Family Medicine 12/22/20 documented as of this encounter
--- OUTSIDE RECORDS SUMMARY | 2025-02-19 15:49 | XMS_ITS | Encounter Summary ---
Author Organization [employer] Address [address] [place] [address] 7 [place] [address] Care Team Providers Care Heater Room Helper Name Role Phone Roxie Aguirre Primary Care Provider [phone] Encounter Details Date Type Department Care Team ([facility] st Contact Info) Description 02/15/2025 Orders Only [facility] MEDICINE [address] [place] [address] Roxie Aguirre ANP [address] [place] [address] Diarrhea, unspecified type (Primary Dx) Social History [...] encounter Progress Notes * BETH Hernandez - 02/15/2025 4:49 PM EST Pt needs additional leave, still with significant GI symptoms and unable to work regular role documented in this encounter Plan of Treatment Upcoming Encounters Date Type Department Care Team (Late st Contact Info) Description 03/13/2025 4:00 PM EST Telemedicine [facility] MEDICINE [address] [place] [address] Roxie Aguirre ANP [address] [place] [address] Scheduled Orders Name Type Priority Associated Diagnoses Orde r Schedule CDiff Gene PCR Lab Routine Diarrhea, unspecified type Expected: 02/15/2025 (Approximate), Expires: 02/15/2026 documented as of this encounter Procedures Procedure Name Priority Date/Time Associated Diagnosis Comments PHOSPHATE ( PHOSPHORUS) Routine 02/15/2025 1:26 PM EST Diarrhea, unspecified type PTH, INTACT WITHOUT CALCIUM Routine 02/15/2025 1:26 PM EST Diarrhea, unspecified type MAGNESIUM Routine 02/15/2025 1:26 PM EST Diarrhea, unspecified type BASIC METABOLIC PANEL Routine 02/15/2025 1:26 PM EST Diarrhea, unspecified type URINALYSIS WITH REFLEX TO MICROSCOPIC Routine 02/15/2025 1:24 PM EST Diarrhea, unspecified type SODIUM W/O CREATININE, RANDOM URINE Routine 02/15/2025 1:24 PM EST Diarrhea, unspecified type CREATININE, RANDOM URINE Routine 02/15/2025 1:24 PM EST Diarrhea, unspecified type documented in this encounter Results * PTH, Intact Without Calcium (02/15/2025 1:26 PM EST) Parathyroid Hormone, Intact 41.5 8.7 - 77.1 pg/mL [facility] 02/15/2025 1:26 PM EST 02/15/2025 5:16 PM EST Generic External Data Provider LAB BLOOD ORDERAB LES Final Result Performing Organization Address [facility]/ZIP Co de Phone Number [facility] [address] [place] [phone] * Magnesium (02/15/2025 1:26 PM EST) Magnesium 2.1 1.6 - 2.6 mg/dL [facility] 02/15/2025 1:26 PM EST 02/15/2025 5:11 PM EST Generic External Data Provider LAB BLOOD ORDERAB LES Final Result Performing Organization Address [facility] Co de Phone Number [facility] [address] [place] [phone] * Phosphate (As Phosphorus) (02/15/2025 1:26 PM EST) Phosphorus 2.9 2.7 - 4.5 mg/dL [facility] 02/15/2025 1:26 PM EST 02/15/2025 5:11 PM EST Generic External Data Provider LAB BLOOD ORDERAB LES Final Result Performing Organization Address [facility] de Phone Number [facility] [address] [place] [phone] * Basic Metabolic Panel (02/15/2025 1:26 PM EST) Sodium 142 135 - 145 mmol/L [facility] Potassium 3.9 3.3 - 5.1 mmol/L [facility] Chloride 105 96 - 108 mmol/L [facility] Carbon Dioxide 29 22 - 29 mmol/L [facility] Anion Gap 12 12 - 20 [facility] Urea Nitrogen (BUN) 10 9 - 16 mg/dL [facility] Creatinine, Serum 0.83 0.5 - 1.4 mg/dL [facility] Estimated Glomerular Filt Rate >60 [facility] Comment:Chronic Kidney Disea se: Estimated GFR < 60 mL/min/[id number] Kidney Disease: Estimated GFR < 15 mL/min/1.73m2 Glucose 97 60 - 115 mg/dL [facility] Calcium 9.8 8.4 - 10.2 mg/dL [facility] 02/15/2025 1:26 PM EST 02/15/2025 5:11 PM EST Generic External Data Provider LAB BLOOD ORDERAB LES Final Result Performing Organization Address [facility] Co de Phone Number [facility] [address] [place] [phone] * Sodium Without creatinine, Random Urine (02/15/2025 1:24 PM EST) Sodium Urine Random 44.0 mmol/L [facility] 02/15/2025 1:24 PM EST 02/15/2025 4:25 PM EST us Generic External Data Provider LAB BLOOD ORDERAB LES Final Result Performing Organization Address [facility] Co de Phone Number [facility] [address] [place] [phone] * Creatinine, Random Urine (02/15/2025 1:24 PM EST) Creatinine, Urine 40.64 mg/dL [facility] 02/15/2025 1:24 PM EST 02/15/2025 4:25 PM EST Generic External Data Provider LAB URINE ORDERAB LES Final Result Performing Organization Address [facility] Phone Number [facility] [address] [place] [phone] * Urinalysis with Reflex to Microscopic (02/15/2025 1:24 PM EST) Color Urine Yellow [facility] Appearance Urine Clear [facility] PH 6.5 5.0 - 9.0 [facility] Glucose Urine UA Negative Negative mg/dL [facility] Urine Blood Negative Negative [facility] Specific [place] - Urine <=1.005 1.005 - 1.025 [facility] Urine Protein Negative Neg-Trace mg/dL [facility] Urine Ketones Negative Negative mg/dL [facility] Nitrite Urine Negative Negative [facility] Leukocyte Esterase Urine Negative Negative [facility] 02/15/2025 1:24 PM EST 02/15/2025 4:23 PM EST Generic External Data Provider LAB URINE ORDERAB LES Final Result Performing Organization Address [facility] Co de Phone Number [facility] [address] [place] [phone] documented in this encounter Visit Diagnoses Diagnosis Diarrhea, unspecified type- Primary documented in this encounter Additional Health Concerns Assessment Noted Time PHQ-9 Depression Total Score: 4 01/31/20 25 4:04 PM EST documented as of this encounter Care Teams Heater Room Helper Relationship Specialty Start Date End Date Roxie Aguirre ANP [address] [place] [address] PCP - General Family Medicine 12/22/20 documented as of this encounter
--- OUTSIDE RECORDS SUMMARY | 2025-02-19 15:49 | XMS_ITS | Encounter Summary ---
Author Organization [employer] Address [address] [place] [address] 7 [place] [address] Care Team Providers Care Instructional Technology Specialist Name Role Phone Roxie Aguirre Primary Care Provider [phone] Encounter Details Date Type Department Care Team ([facility] st Contact Info) Description 02/06/2025 Results Follow-Up [facility] MEDICINE [address] [place] [address] Roxie Aguirre ANP [address] [place] [address] Basic Metabolic Panel, Fasting, Phosphate (As Phosphorus), [...] you've gotten the letter I sent via [email or web address] for work through 02/15 but if not, please let me know and I will print or re-send. Please call our office if you have any questions. Por favor llame a la oficina si tiene preguntas. Take care, Cu??Roxie benites FAMILY CONSUMER SCIENTIST documented in this encounter Plan of Treatment Upcoming Encounters Date Type Department Care Team (Late st Contact Info) Description 03/13/2025 4:00 PM EST Telemedicine [facility] [address] [place] [address] Roxie Aguirre ANP [address] [place] [address] documented as of this encounter Visit Diagnoses Not on filedocumented in this encounter Additional Health Concerns Assessment Noted Time PHQ-9 Depression Total Score: 4 01/31/20 25 4:04 PM EST documented as of this encounter Care Teams Instructional Technology Specialist Relationship Specialty Start Date End Date Roxie Aguirre ANP [address] [place] [address] PCP - General Family Medicine 12/22/20 documented as of this encounter
--- OUTSIDE RECORDS SUMMARY | 2025-02-19 15:49 | XMS_ITS | Encounter Summary ---
Author Organization [employer] Address [address] [place] [address] [place] [address] Care Team Providers Care Warp Picker Name Role Phone Roxie Aguirre Primary Care Provider [phone] Reason for Visit * Reason Onset Date Comments Letter for School/Work 02/15/2025 Encounter Details Date Type Department Care Team ([facility] Contact Info) Description 02/15/2025 Telephone [facility]INE [address] [place] [address] Roxie Aguirre ANP [address] [place] [address] Letter for School/Work Social History Tobacco Use Types Packs/Day Years [...] Telephone Encounter - Mena Francis RN - 02/18/2025 3:17 PM EST Telephone call placed to pt. Informed letter generated. Pt states saw it on [facility] and sent it over to short-term disability already. Pt reports FMLA paperwork sent over via fax on Tuesday. Informed that forms will process this. * Telephone Encounter - Randall Mehta - 02/15/2025 3:33 PM EST Tc from pt requesting a letter for work to extend his medical leave due to still feeling symptoms. If any questions you can contact pt at [phone]. documented in this encounter Plan of Treatment Upcoming Encounters Date Type Department Care Team (Late st Contact Info) Description 03/13/2025 4:00 PM EST Telemedicine [facility]INE [address] [place], [place] [phone] Roxie Aguirre ANP [address] [place] [address] documented as of this encounter Visit Diagnoses Not on filedocumented in this encounter Additional Health Concerns Assessment Noted Time PHQ-9 Depression Total Score: 4 01/31/20 25 4:04 PM EST documented as of this encounter Care Teams Warp Picker Relationship Specialty Start Date End Date Roxie Aguirre ANP [address] [place] [address] PCP - General Family Medicine 12/22/20 documented as of this encounter
--- OUTSIDE RECORDS SUMMARY | 2025-02-19 15:49 | XMS_ITS | Encounter Summary ---
Author Organization [employer] Address [address] [place] [address] Care Team Providers Care Fig Washer Name Role Phone Roxie Aguirre Primary Care Provider [phone] Reason for Visit * Reason Onset Date Comments Med Refill 10/06/2022 Encounter Details Date Type Department Care Team ([facility] st Contact Info) Description 10/06/2022 Telephone [facility] [address] [place] [address] Roxie Aguirre ANP [address] [place] [address] Med Refill Social History Tobacco Use Types [...] Info) Description 03/13/2025 4:00 PM EST Telemedicine [facility] [address] [place] [address] Roxie Aguirre ANP [address] [place] [address] documented as of this encounter Visit Diagnoses Not on filedocumented in this encounter Care Teams Fig Washer Relationship Specialty Start Date End Date Roxie Aguirre ANP [address] [place] [address] PCP - General Family Medicine 12/22/20 documented as of this encounter
--- OUTSIDE RECORDS SUMMARY | 2025-02-19 15:50 | XMS_ITS | Clinical Summary ---
Author Organization [employer] Address [address] [place] [address] 7 [place] [address] Care Team Providers Care Paint Crew Supervisor Name Role Phone Timothy Roxie CAMPOS Primary Care Provider [phone] Allergies No known active allergies Medications * [...] 25 Active ergocalciferol (Vitamin D2) 1.25 MG (65312 UT) capsule Take 1,250 mcg by mouth [...] Once per day. 30 tablet 11 01/31/20 Discontinued(Al ternate therapy) escitalopram (Lexapro) 5 MG tabletIndication s:Anxiety Take 1 tablet (5 mg) by mouth Once per day. 30 tablet 2 02/01/20 Discontinued amLODIPine (Norvasc) 5 MG tablet Take [...] organization. Date Type Department Care Team Description 02/19/2025 Orders Only [facility] [address] [place] [address] Roxie Aguirre ANP 02/15/2025 1:00 PM EST Clinical Support [facility] [place] [address] Ruma Horton RN Essential hypertension 02/15/2025 Orders Only [facility] [place] [address] Roxie Aguirre ANP Diarrhea, unspecified type (Primary Dx) 02/15/20[address] [place] [address] Roxie Aguirre ANP Letter for School/Work 02/15/2025 Travel 02/11/2025 Results Follow-Up [facility] [place] [address] Roxie Aguirre ANP Stool - Gastrointestinal panel 02/06/2025 10:00 AM EST Office Visit [facility] [place] [address] Yeny Fenton FNP Hypophosphatemia (Primary Dx); Anxiety; Essential hypertension; Snoring; Hospital discharge follow-up; Diarrhea, unspecified type 02/06/2025 Results Follow-Up [facility] [place] [address] Roxie Aguirre ANP Basic Metabolic Panel, Fasting, Phosphate (As Phosphorus), PTH, Intact Without Calcium 02/06/2025 Orders Only [facility] [place] [address] Roxie Aguirre ANP 02/06/2025 Orders Only [address] [place] [address] Roxie Aguirre ANP Diarrhea, unspecified type (Primary Dx) 02/06/2025 Travel 02/05/2025 Telephone [facility] [place] [address] Yeny Fenton FNP Chart Prep 02/04/2025 Orders Only [facility] [place] [address] Roxie Aguirre ANP Hypophosphatemia (Primary Dx); Diarrhea, unspecified type 02/04/2025 Patient Outreach [facility] [place] [address] Roxie Aguirre ANP Transition Of Care (Tcm) (HDF- Unscheduled (Message sent to team nurses) and SDOH screening negative and Tobacco screening negative) 02/04/[address] [address] Roxie Aguirre ANP ER Follow-up 02/01/2025 Results Follow-Up [address] [address] Roxie Aguirre ANP CBC auto differential, High Sensitivity Troponin I, Comprehensive Metabolic Panel, Additional followed-up results: 2 02/01/2025 Orders Only GENERIC EXTERNAL DATA DEPARTMENT Provider, Generic External Data 01/31/2025 11:15 AM EST Office Visit [address] [address] Roxie Aguirre ANP Essential hypertension (Primary Dx); Anxiety; Dietary counseling; Exercise counseling; Compression fracture of lumbar vertebra, unspecified lumbar vertebral level, sequela; Mild intermittent reactive airway disease without complication; Witnessed episode of apnea 01/31/2025 Results Follow-Up [address] [address] Roxie Aguirre ANP Basic Metabolic Panel, TSH W/Reflex to FT4, Hemoglobin A1c 01/30/2025 4:00 PM EST Office Visit [facility] [address] [place] [address] Stephanie Jerez MD Essential hypertension (Primary Dx); Depression with anxiety; Anxiety 01/30/2025 Travel 01/30/[address] [address] Roxie Aguirre ANP 01/25/[address] [address] Roxie Aguirre ANP Nurse Triage from Last [...] Info) Description 03/13/2025 4:00 PM EST Telemedicine [facility] [address] [place] [address] Roxie Aguirre, ANP [address] [place], [place] [phone] Health Maintenance Due Date Last Done Comments [...] Diagnosis Comments PTH, INTACT WITHOUT CALCIUM Routine 02/15/2025 1:26 PM EST Diarrhea, unspecified type MAGNESIUM Routine 02/15/2025 1:26 PM EST Diarrhea, unspecified type PHOSPHATE ( PHOSPHORUS) Routine 02/15/2025 1:26 PM EST Diarrhea, unspecified type BASIC METABOLIC PANEL Routine 02/15/2025 1:26 PM EST Diarrhea, unspecified type SODIUM W/O CREATININE, RANDOM URINE Routine 02/15/2025 1:24 PM EST Diarrhea, unspecified type CREATININE, RANDOM URINE Routine 025 1:24 PM EST Diarrhea, unspecified type URINALYSIS WITH REFLEX TO MICROSCOPIC Routine 02/15/2025 1:24 PM EST Diarrhea, unspecified type GASTROINTESTINAL PANEL Routine 7:30 AM EST Diarrhea, [...] Recently Relevant to Health Maintenance Results * Phosphate (As Phosphorus) (02/15/2025 1:26 PM EST) Only the most recent of3 resultswithin the time period is included. Phosphorus 2.9 2.7 - 4.5 mg/dL [facility] 02/15/2025 1:26 PM EST 02/15/2025 5:11 PM EST Generic External Data Provider LAB BLOOD ORDERAB LES Final Result Performing Organization Address [facility] Co de Phone Number [facility] [address] [place] [phone] * PTH, Intact Without Calcium (02/15/2025 1:26 PM EST) Only the most recent of2 resultswithin the time period is included. Parathyroid Hormone, Intact 41.5 8.7 - 77.1 pg/mL [facility] 02/15/2025 1:26 PM EST 02/15/2025 5:16 PM EST Generic External Data Provider LAB BLOOD ORDERAB LES Final Result Performing Organization Address [facility]/ZIP Co de Phone Number [facility] [address] [place] [phone] * Magnesium (02/15/2025 1:26 PM EST) Only the most recent of2 resultswithin the time period is included. Magnesium 2.1 1.6 - 2.6 mg/dL [facility] 02/15/2025 1:26 PM EST 02/15/2025 5:11 PM EST Generic External Data Provider LAB BLOOD ORDERAB LES Final Result Performing Organization Address City/[facility] Co de Phone Number [facility] [address] [place] [address] [phone] * Basic Metabolic Panel (02/15/2025 1:26 PM EST) Only the most recent of3 resultswithin the time period is included. Sodium 142 135 - 145 mmol/L [facility] Potassium 3.9 3.3 - 5.1 mmol/L [facility] Chloride 105 96 - 108 mmol/L [facility] Carbon Dioxide 29 22 - 29 mmol/L [facility] Anion Gap 12 12 - 20 [facility] Urea Nitrogen (BUN) 10 9 - 16 mg/dL [facility] Creatinine, Serum 0.83 0.5 - 1.4 mg/dL [facility] Estimated Glomerular Filt Rate >60 [facility] Comment:Chronic Kidney Disea se: Estimated GFR < 60 mL/min/[id number] Kidney Disease: Estimated GFR < 15 mL/min/1.73m2 Glucose 97 60 - 115 mg/dL [facility] Calcium 9.8 8.4 - 10.2 mg/dL [facility] 02/15/2025 1:26 PM EST 02/15/2025 5:11 PM EST us Generic External Data Provider LAB BLOOD ORDERAB LES Final Result Performing Organization Address [facility] Co de Phone Number [facility] [address] [place] [address] [phone] * Urinalysis with Reflex to Microscopic (02/15/2025 1:24 PM EST) Only the most recent of2 resultswithin the time period is included. Color Urine Yellow [facility] Appearance Urine Clear [facility] PH 6.5 5.0 - 9.0 [facility] Glucose Urine UA Negative Negative mg/dL [facility] Urine Blood Negative Negative [facility] Specific Slater - Urine <=1.005 1.005 - 1.025 [facility] Urine Protein Negative Neg-Trace mg/dL [facility] Urine Ketones Negative Negative mg/dL [facility] Nitrite Urine Negative Negative [facility] Leukocyte Esterase Urine Negative Negative [facility] 02/15/2025 1:24 PM EST 02/15/2025 4:23 PM EST Generic External Data Provider LAB URINE ORDERAB LES Final Result Performing Organization Address [facility] Co de Phone Number [facility] [address] [place] [phone] * Sodium Without creatinine, Random Urine (02/15/2025 1:24 PM EST) [facility] Sodium Urine Random 44.0 mmol/L [facility] 02/15/2025 1:24 PM EST 02/15/2025 4:25 PM EST Generic External Data Provider LAB BLOOD ORDERAB LES Final Result Performing Organization Address [facility] Phone Number [facility] [address] [place] [phone] * Creatinine, Random Urine (02/15/2025 1:24 PM EST) Only the most recent of2 resultswithin the time period is included. Pathologist [facility] Creatinine, Urine 40.64 mg/dL [facility] 02/15/2025 1:24 PM EST 02/15/2025 4:25 PM EST Generic External Data Provider LAB URINE ORDERAB LES Final Result Performing Organization Address [facility] de Phone Number [facility] [address] [place] [phone] * Stool - Gastrointestinal panel (02/07/2025 7:30 AM EST) Pathologist [facility] Campylobacter Not Detected Not Detect. [facility] Plesiomonas shigelloides Not Detected Not Detect. [facility] Salmonella Not Detected Not Detect. [facility] Vibrio Not Detected Not Detect. [facility] Vibrio cholerae Not Detected Not Detect. [facility] YERSINIA ENTEROCOLITICA Not Detected Not Detect. [facility] Enteroaggregative E. coli (EAEC) Not Detected Not Detect. [facility] Enteropathogenic E. coli (EPEC) Not Detected Not Detect. [facility] Enterotoxigenic E. coli (ETEC) lt/st Not Detected Not Detect. [facility] Shiga-like toxin-producing E. coli (STEC) stx1/stx2 Not Detected Not Detect. [facility] E coli O157 Not applicable Not Detect. [facility] Comment:E. coli containing t he O157 antigen are a subset ofShiga-like toxin- producing E. coli (STEC). Shigella/Enteroinvasive E. coli (EIEC) Not Detected Not Detect. [facility] Cryptosporidium Not Detected Not Detect. [facility] Cyclospora cayetanensis Not Detected Not Detect. [facility] Entamoeba histolytica Not Detected Not Detect. [facility] Giardia lamblia Not Detected Not Detect. [facility] Adenovirus F 40/41 Not Detected Not Detect. [facility] Astrovirus Not Detected Not Detect. [facility] Norovirus GI/GII Not Detected Not Detect. [facility] Rotavirus A Not Detected Not Detect. [facility] Sapovirus Not Detected Not Detect. [facility] Comment: All results must be [...] assay is performed by Multiplexed PCR, utilizing [employer] Film Array. Stool Rectal contents / Unknown 02/07/2025 7:30 AM EST 02/07/2025 4:14 PM EST [facility] LAB MICROBIOLOGY - GENERAL ORDER BHARGAVI Final Result Performing Organization Address [facility] Co de Phone Number [facility] [address] [place] [phone] * (ABNORMAL) Basic Metabolic Panel, Fasting (02/06/2025 11:29 AM EST) Glucose Fasting 103(H) 60 - 99 mg/dL [facility] Comment:A fasting glucose fr om 100-125 mg/dl is considered impaired(pre-diabetes). 02/06/2025 11:2 9 AM EST 02/06/2025 12:52 PM EST [facility] External Data Provider LAB BLOOD ORDERAB LES Final Result Performing Organization Address [facility] Co de Phone Number [facility] [address] [place] [phone] * Blood gas, arterial (02/01/2025 6:56 PM EST) ABG pH 7.43 7.35 - 7.45 [facility] Comment:METER #: [id number] additional_comment: Cb wojtass ctrbb jesin ABG PCO2 35 32 - 45 mmHg [facility] Comment:METER #: [id number] additional_comment: Cb wojtass ctrbb jesin ABG PO2 87 83 - 108 mmHg [facility] Comment:METER #: [id number] additional_comment: Román mckeon ctrbb jesin ABG Base Excess 0.3 mmol/L [facility] Comment:METER #: [id number] additional_comment: Román mckeon ctrbb jesin ABG HCO3 24 22 - 26 mmol/L [facility] Comment:METER #: [id number] additional_comment: Román mckeon ctrbb jesin ABG Oxygen Saturation 98.0 % [facility] Comment:METER #: [id number] additional_comment: Román mckeon ctrbb jesin 02/01/2025 6:56 PM EST 02/01/2025 7:00 PM EST Generic External Data Provider LAB BLOOD ORDERAB LES Final Result Performing Organization Address [facility] Co ky Phone Number [facility] [address] [place] [address] [phone] * High Sensitivity Troponin I (02/01/2025 6:36 PM EST) Only the most recent of2 resultswithin the time period is included. TROPONIN I HIGH SENSITIVITY <2.7 <3.5 - 35.0 ng/L [facility] Comment:The Wolf high sens itivity Troponin-I results should beused in conjunction with other diagnostic information suchas ECG, clinical observations and information, and patientsymptoms to aid in the diagnosis of MD. 02/01/2025 6:36 PM EST 02/01/2025 6:38 PM EST us Generic External Data Provider LAB BLOOD ORDERAB LES Final Result Performing Organization Address [facility] Co de Phone Number [facility] [address] [place] [phone] * Urine electrolytes (02/01/2025 6:36 PM EST) Chloride Urine Random 95.0 mmol/L [facility] Sodium Urine Random 99.0 mmol/L [facility] Potassium Urine Random 40.3 mmol/L [facility] 02/01/2025 6:36 PM EST 02/01/2025 6:38 PM EST us Generic External Data Provider LAB URINE ORDERAB LES Final Result Performing Organization Address [facility]/ZIP Co de Phone Number [facility] [address] [place] [phone] * Phosphorus, urine, random (02/01/2025 6:36 PM EST) Phosphate, Random Urine 14.2 mg/dL [facility] 02/01/2025 6:36 PM EST 02/01/2025 6:38 PM EST Generic External Data Provider LAB URINE ORDERAB LES Final Result Performing Organization Address [facility] de Phone Number [facility] [address] [place] [phone] * (ABNORMAL) CBC auto differential (02/01/2025 3:31 PM EST) White Blood Count 12.7(H) 4.8 - 10.8 X10*3/uL [facility] Red Blood Count 5.87(H) 4.60 - 5.80 X10*6/uL [facility] Hemoglobin 17.5 14.0 - 18.0 g/dl [facility] Hematocrit 48.1 42.0 - 52.0 % [facility] Mean Corpuscular Volume 81.9 80.0 - 98.0 fL [facility] Mean Corpuscular Hemoglobin 29.8 27.0 - 33.0 pg [facility] Mean Corpuscular HGB Conc 36.4(H) 31.0 - 36.0 g/dl [facility] Red Cell Distribution Width 11.7 11.0 - 16.0 % [facility] Platelet Count 438(H) 160 - 400 X10*3/uL [facility] Mean Platelet Volume 9.6 9.4 - 12.4 fL [facility] Neutrophils Percent Auto 78.0(H) 45 - 73 % [facility] Imm Gran Pct Auto 0.3 0.0 - 0.4 % [facility] Lymphocytes Percent Auto 13.8(L) 20 - 40 % [facility] Monocytes Percent Auto 7.0 2 - 11 % [facility] Eosinophils Percent Auto 0.2 0 - 4 % [facility] Basophils Percent Auto 0.7 0 - 2 % [facility] NRBC Pct Auto 0.0 0.0 - 0.2 /100WBC [facility] Neutrophils Absolute Auto 9.9(H) 2.0 - 8.3 x10*3/uL [facility] Imm Gran Abs Auto 0.04(H) 0.00 - 0.03 X10*3/uL [facility] Lymphocytes Absolute Auto 1.8 1.2 - 4.9 X10*3/uL [facility] Monocytes Absolute Auto 0.9 0.1 - 1.2 X10*3/uL [facility] Eosinophils Absolute Auto 0.0 0.0 - 0.4 X10*3/uL [facility] Basophils Absolute Auto 0.1 0.0 - 0.2 X10*3/uL [facility] NRBC Abs Auto 0.000 0.0 - 0.012 X10*3/uL [facility] 02/01/2025 3:31 PM EST 02/01/2025 3:38 PM EST us Generic External Data Provider LAB BLOOD ORDERAB LES Final Result [facility] [address] [place] [address] [phone] * (ABNORMAL) Comprehensive Metabolic Panel (02/01/2025 3:31 PM EST) Sodium 136 135 - 145 mmol/L [facility] Potassium 3.4 3.3 - 5.1 mmol/L [facility] Chloride 101 96 - 108 mmol/L [facility] Carbon Dioxide 21(L) 22 - 29 mmol/L [facility] Anion Gap 17 12 - 20 [facility] Urea Nitrogen (BUN) 12 9 - 16 mg/dL [facility] Creatinine, Serum 0.90 0.5 - 1.4 mg/dL [facility] Creatinine Clr Calc Pharmacy 128.0 [facility] Comment:eGFR (calculated fro m the MDRD study equation) and eCrCl(calculated from the Cockcroft-Gault equation) are based ondifferent parameters and may not yield comparable results.If eCrCl result is absurd, please check patient'sheight/weight. Estimated Glomerular Filt Rate >60 [facility] Comment:Chronic Kidney Disea se: Estimated GFR < 60 mL/min/1.53y6Aebhnq Kidney Disease: Estimated GFR < 15 mL/min/1.73m2 Glucose 118(H) 60 - 115 mg/dL [facility] Calcium 10.1 8.4 - 10.2 mg/dL [facility] Bilirubin, Total 0.9 0.0 - 1.0 mg/dL [facility] Aspartate Amino Transferase 34 5 - 37 U/L [facility] Alanine Aminotransferase 72(H) 0 - 40 U/L [facility] Total Protein 8.2(H) 6.5 - 8.0 g/dL [facility] Albumin Level 5.4(H) 3.5 - 5.0 g/dL [facility] Alkaline Phosphatase 57 39 - 117 U/L [facility] 02/01/2025 3:31 PM EST 02/01/2025 3:38 PM EST us Generic External Data Provider LAB BLOOD ORDERAB LES Final Result [facility] [address] [place] [phone] [phone] * (ABNORMAL) Vitamin D, 25-Hydroxy, Total, Immunoassay (01/31/2025 1:46 PM EST) Vitamin D 25-OH Total 27.3(L) >30 ng/mL [facility] Comment: Health Based Reference Values*< 20 ng/mL [id number] ng/mL Insufficient> 30 ng/mL Sufficient*Azul LOPEZ. N [...] 01/31/2025 6:11 PM EST us Roxie Aguirre [facility] LAB BLOOD ORDERABLES Final Resul t Performing Organization Address City/[facility]/ZIP Co de Phone Number [facility] [address] [place] [phone] * TSH W/Reflex to FT4 (01/31/2025 1:46 PM EST) TSH reflex Free T4 1.01 0.32 - 4.0 uIU/mL [facility] Blood Venous blood specimen / Unknown 01/31/2025 1:46 PM EST 01/31/2025 3:59 PM EST us Roxie Aguirre [facility] BLOOD ORDERABLES Final Resul t Performing Organization Address City/[facility]/ZIP Co de Phone Number [facility] [address] [place] [phone] * Hemoglobin A1c (01/31/2025 1:46 PM EST) Hemoglobin A1c 5.2 <6.0 % [facility] Comment:Hemoglobin A1C Refer ence Range Adults: 4.8 - 6.0 % Non diabetic: < 6.0 % Goal: < 7.0 %Additional Action Suggested: > 8.0 %Note: Hemoglobin A1c results are invalid for patients with abnormal amounts of HbF. Blood transfusions may impact the HbA1c concentration in the patient sample. Estimated Average Glucose 103 mg/dL [facility] Comment:eAG = Estimated ave rage glucose which is %A1C expressed asaverage glucose, using the formula of the B1S-LbbgbcdBvcixif Glucose study (ADAG), Diabetes Care, Vol.31,#8,Oct. 2007 Blood Venous blood specimen / Unknown 01/31/2025 1:46 PM EST 01/31/2025 3:59 PM EST [facility] LAB BLOOD ORDERABLES Final Resul t [facility] [address] [place] [address] [phone] * HIV-1/2 Antigen and Antibodies, Fourth Generation, with Reflexes (04/06/2022 1:49 PM EST) HIV Antigen/Antibody, 4th Generation NON-REAC TIVE NON-REAC TIVE [employer] [facility] Comment: HIV-1 antigen and HIV-1/HIV-2 antibodies [...] purpose. For additional information please refer to http://education.[employer]Livelens/faq/BEA202 (This link is being provided for informational/ educational purposes only.) The performance of this assay has not been clinically validated in patients less than 2 years old. 04/06/2022 1:49 PM EST 04/06/2022 1:50 PM EST [facility] LAB BLOOD ORDERABLES Final Resul t [facility] [address] [facility], [place] [address] [employer] [facility] [address] [facility], ([address]) [place] [address] from Last 3 Months or Most Recently Relevant to Health Maintenance Insurance [employer] PPO [employer] Care Teams Paint Crew Supervisor Relationship Specialty Start Date End Date Roxie Aguirre ANP [address] [place] [phone] PCP - General Family Medicine 12/22/20
--- OUTSIDE RECORDS SUMMARY | 2025-02-19 15:50 | XMS_ITS | Encounter Summary ---
Author Organization [employer] Address [address] [place] [address] 7 [place] [address] Care Team Providers Care Wood Caulker Name Role Phone Roxie Aguirre Primary Care Provider Encounter Details Date Type Department Care Team ([facility] Contact Info) Description 01/30/2025 Telephone [facility] [address] [place] [address] Roxie Aguirre ANP [address] [place] [address] Social History Tobacco Use Types Packs/Day Years [...] caller accepted this outcome. Contact pt at [phone] documented in this encounter Plan of Treatment Upcoming Encounters Date Type Department Care Team ([facility] st Contact Info) Description 03/13/2025 4:00 PM EST Telemedicine [facility] [address] [place] [phone] Roxie Aguirre ANP [address] [place] [address] documented as of this encounter Visit Diagnoses Not on filedocumented in this encounter Additional Health Concerns Assessment Noted Time PHQ-9 Depression Total Score: 4 01/31/20 25 4:04 PM EST documented as of this encounter Care Teams Wood Caulker Relationship Specialty Start Date End Date Roxie Aguirre ANP [address] [place] [phone] PCP - General Family Medicine 12/22/20 documented as of this encounter
== END 2025-02-19 12:17 | disposition home or self-care (01) ==
LOC: HO.HKA 12:07
PROVIDERS: PCP Nurse Practitioner Primary Care; Visit Provider Internal Medicine Hypertension Specialist
DX: I10 Essential (primary) hypertension (principal); E83.39 Other disorders of phosphorus metabolism
CPT/HCPCS: 99214

== ENCOUNTER 2025-02-19 12:25 | Outpatient (REF) | payer OTHER, SELFPAY ==
[2025-02-19 14:48] LABS: Anion Gap 9 (12-20); Blood Urea Nitrogen 10 mg/dL (9-16); Calcium 10.0 mg/dL (8.4-10.2); Carbon Dioxide 30 mmol/L (22-29); Chloride 105 mmol/L (96-108); Estimated Glomerular Filt Rate > 60; Magnesium 2.1 mg/dL (1.6-2.6); Potassium 3.8 mmol/L (3.3-5.1); Sodium 140 mmol/L (135-145)
== END 2025-02-19 12:26 | disposition home or self-care (01) ==
LOC: HO.10HDL 12:25
PROVIDERS: Visit Provider Internal Medicine Hypertension Specialist
DX: I10 Essential (primary) hypertension (principal); E83.39 Other disorders of phosphorus metabolism
CPT/HCPCS: 36415; 80048; 83735; 84100